=== PATIENT | female | born 1940 | race Caucasian/White ===

== ENCOUNTER → 2021-10-02 10:00 | Outpatient (BNVA) | payer MEDICARE, SELFPAY | PROVIDERS: Visit Provider Internal Medicine | DX: E11.49 Type 2 diabetes mellitus with other diabetic neurological complication (principal); R79.89 Other specified abnormal findings of blood chemistry; E78.5 Hyperlipidemia, unspecified; Z79.84 Long term (current) use of oral hypoglycemic drugs | CPT/HCPCS: 99204 ==

== ENCOUNTER 2021-11-07 19:07 | Emergency (ER) | payer MEDICARE, OTHER, SELFPAY ==
[2021-11-07 19:13] VITALS: BP 158/98; PULSE 81; RESP 18; TEMP 36.7; O2SAT 99; BMI 30.5
--- NOTE | 2021-11-07 19:13 | CTR_ITS ---
PROCEDURE INFORMATION: Exam: CT Abdomen And Pelvis With Contrast Exam date and time: 11/07/2021 7:13 PM Age: 81 years old Clinical indication: Nausea and vomiting; Abdominal pain; Flank; Right; Prior surgery; Surgery type: Hyst. Appy; Additional info: Rlq pain TECHNIQUE: Imaging protocol: Computed tomography of the abdomen and pelvis with contrast. Radiation optimization: All CT scans at this facility use at least one of these dose optimization techniques: automated exposure control; mA and/or kV adjustment per patient size (includes targeted exams where dose is matched to clinical indication); or iterative reconstruction. Contrast material: OMNI 300; Contrast volume: 95 ml; Contrast route: INTRAVENOUS (IV); COMPARISON: No relevant prior studies available. RADIATION DOSE METRICS: Total DLP (mGy-cm): 1618.78 FINDINGS: Lungs: Lung bases are clear. Diaphragm: There is a small sliding-type hiatal hernia. Liver: The liver is normal. Gallbladder and bile ducts: Cholelithiasis is present. There is no sign of cholecystitis. There is no intrahepatic or extrahepatic bile duct dilation. Pancreas: The pancreas is unremarkable. Spleen: Splenic size is normal. There are scattered calcifications consistent with healed granulomas. Adrenal glands: The adrenal glands are unremarkable. Kidneys and ureters: There is a stone at the right ureterovesical junction measuring roughly 3 mm diameter. The stone is partially obscured by motion artifact. See axial series 2, image 73 and sagittal series 601, image 46 and coronal series 602, image 35. There is mild right hydronephrosis. There is a 3 mm nonobstructive stone at the lower pole of the right kidney. Parenchymal enhancement pattern is normal. The left kidney and ureter are unremarkable. Stomach and bowel: The stomach is decompressed, preventing meaningful evaluation of wall thickness. The small bowel is nondilated. The colon is unremarkable. Appendix: The appendix is not visible. Intraperitoneal space: There is no free air or significant intraperitoneal free fluid. Vasculature: There is moderate aortic atherosclerotic disease. The portal, splenic and superior mesenteric veins are patent. Lymph nodes: There is no lymphadenopathy in the retroperitoneum, mesentery, pelvis or inguinal regions. Urinary bladder: The urinary bladder is unremarkable. Reproductive: The uterus is absent. There is no adnexal mass or large cyst. Bones/joints: The pelvis and proximal femora are intact. There is mild degenerative disease in the lumbar spine. Soft tissues: The abdominal wall is intact. CT/CT abdomen pelvis w con* [id number] IMPRESSION: 1. 3 mm stone in the distal right ureter at the ureterovesical junction producing mild hydronephrosis. 2. Nonobstructive intrarenal stone on the right. 3. Incidental findings above.
[2021-11-07] MEDS: sodium chloride 0.9% 1,000 ML 999 ML IV (19:17)
[2021-11-07 19:25] LABS: Basophils # 0.1 10^3/uL (0.0-0.1); Basophils % 0.5 %; Eosinophils # 0.2 10^3/uL (0.0-0.8); Eosinophils % 1.6 %; Hematocrit 41.9 % (37.0-47.0); Hemoglobin 13.8 g/dL (11.5-15.3); Lymphocytes # 3.2 10^3/uL (0.8-4.8); Lymphocytes % 34.1 %; Mean Corpuscular HGB Conc 32.9 g/dL (30.0-36.0); Mean Corpuscular Hemoglobin 29.5 pg (28.0-34.0); Mean Corpuscular Volume 89.5 fl (81-99); Monocytes # 0.9 10^3/uL (0.2-0.9); Monocytes % 9.4 %; Neutrophils # 5.07 10^3/uL (1.8-7.7); Neutrophils % 53.9 %; Nucleated Red Blood Cells % 0 %; Platelet Count 359 10^3/cmm (130-400); Red Blood Count 4.68 10^6/uL (4.1-5.3); Red Cell Distribution Width 13.5 % (12.1-15.1); White Blood Count 9.4 10^3/uL (4.0-10.0)
--- NOTE | 2021-11-07 19:33 | W.ED.FEMALGU ---
HPI - Female Genitourinary General: Chief complaint: Urogenital-Female Stated complaint: R LOWER QUAD PAIN, FLANK PAIN, VOMIT Time Seen by Provider: 11/07/21 19:10 History of Present Illness: HPI Narrative: 81-year-old female with sudden onset flank and right lower quadrant pain starting around 5 PM. She threw up a couple of times at home and called an ambulance. No fever. No chills. No diarrhea. She is not had a pain like this before. She was given medication in the ambulance, and her pain is now resolved. MD elicited complaint: flank pain Pertinent past history: recurrent UTIs Onset (ago): hour(s) Location of symptoms: RLQ and flank Severity: severe Female Urogenital Radiation: R Flank Quality of pain: sharp Consistency: now resolved Vaginal bleeding: none Exacerbating factors: urination and movement Relieving factors: none Associated symptoms: Reports abdominal pain and nausea; Deny short of breath or fevers/chills Review of Systems Const: Denies: fever(s) or chills Card: Denies: chest pain Resp: Denies: dyspnea GI: Reports: abdominal pain, nausea and vomiting; Denies: diarrhea PFSH ED PFSH: Medical History Aftercare following left ankle joint replacement surgery Asthma Cataract COPD (chronic obstructive pulmonary disease) Diabetes type 2, uncontrolled Insomnia Over weight Pacemaker Surgical History History of cataract surgery Hx of hysterectomy Hx of tonsillectomy Family History Father Heart attack Mother Heart attack Social History Smoking and tobacco status: former smoker Quit status (tobacco): has quit using tobacco Second hand smoke exposure: No Smoking risk assessment/counseling performed?: Yes Alcohol intake: former Desire information about alcohol rehabilitation?: No Counseling given: No Desire information about substance/drug rehabilitation?: No Counseling given: No Adopted: No Caregiver/support person: Yes Lives independently: Yes Household members: none Housing: Apartment Marital status: / Highest education level completed: GED or Equivalent service: No Current occupational status: retired Pets and animals: Yes History of recent travel: No Sexually active: No Current gender identity: Female Isabel/Sabianist: [employer] Special isabel needs: No Agree to transfusion: Yes Physical Exam Const: COMMON NORMALS: no acute distress, patient oriented x3 and alert HENMT: COMMON NORMALS: normocephalic HEAD & SCALP: normocephalic Chest: COMMONS NORMALS: normal inspection of the chest Resp: COMMON NORMALS: normal respiratory effort, No use of accessory muscles and clear to auscultation bilaterally AUSCULTATION: clear to auscultation bilaterally Cardio: COMMON NORMALS: regular rate and regular rhythm RATE: regular rate RHYTHM: regular rhythm GI: COMMON NORMALS: Normal to inspection, nondistended, normoactive bowel sounds present, Soft to palpation and non-tender PALPATION: Yes Soft to palpation Neuro: COMMON NORMALS: patient oriented x3 SENSORIUM/ORIENTATION: Yes alert Course Vital Signs: Vital signs: Vital Signs Temperature 98.1 F 11/07/21 22:27 Pulse Rate 79 11/07/21 22:27 Respiratory Rate 18 11/07/21 22:27 Blood Pressure 147/72 11/07/21 22:27 Pulse Oximetry 99 11/07/21 22:27 MDM - Female MDM Narrative: Medical decision making narrative: CBC is normal. BMP not remarkable. CT scan shows a 3 mm stone in the distal ureter on the right consistent with her symptoms. She has mild hydronephrosis. No evidence of infection on urinalysis. Her pain is gone at this point suspect she will pass without problems. We will place her on pain medication, antiemetic, and Flomax. She is DC'd with a strainer Lab Data: Labs: Lab Results 11/07/21 11/07/21 11/07/21 19:14 19:14 19:14 WBC 9.4 10^3/uL 10^3/ uL (4.0-10.0) RBC 4.68 10^6/uL 10^6 /uL (4.1-5.3) Hgb 13.8 g/dL g/dL (11.5-15.3) Hct 41.9 % % (37.0-47.0) MCV 89.5 fl fl (81-99) MCH 29.5 pg pg (28.0-34.0) MCHC 32.9 g/dL g/dL (30.0-36.0) RDW 13.5 % % (12.1-15.1) Plt Count 359 10^3/cmm 10^3 /cmm (130-400) MPV 10.0 fL fL (7.4-10.4) Neut % (Auto) 53.9 % % Lymph % (Auto) 34.1 % % [place] % (Auto) 9.4 % % Eos % (Auto) 1.6 % % Baso % (Auto) 0.5 % % Neut # (Auto) 5.07 10^3/uL 10^3 /uL (1.8-7.7) Lymph # (Auto) 3.2 10^3/uL 10^3/ uL (0.8-4.8) [place] # (Auto) 0.9 10^3/uL 10^3/ uL (0.2-0.9) Eos # (Auto) 0.2 10^3/uL 10^3/ uL (0.0-0.8) Baso # (Auto) 0.1 10^3/uL 10^3/ uL (0.0-0.1) Nucleated RBC % (a uto) 0 % % Nucleated RBCs # 0.0 /100WBC /100W BC Sodium 136 mmol/L mmol/L (136-145) Potassium 4.5 mmol/L mmol/L (3.5-5.1) Chloride 100 mmol/L mmol/L (98-107) Carbon Dioxide 20 mmol/L L mmol/ L (22-29) Anion Gap 20.5 H (5-19) BUN 10 mg/dL mg/dL (8-23) Creatinine 0.6 mg/dL mg/dL (0.5-0.9) GFR Calculation Not Reportable Glucose 180 mg/dL H mg/dL (65-115) Calculated Osmolal ity 286 mOsm/kg mOsm/ kg (285-295) Lactate 2.0 mmol/L mmol/L (0.5-2.2) Calcium 8.7 mg/dL mg/dL (8.5-10.5) Total Bilirubin 0.2 mg/dL mg/dL (0.15-1.2) AST 24 U/L U/L (0-32) ALT 24 U/L U/L (0-33) Alkaline Phosphata se 108 IU/L H IU/L (35-105) C-Reactive Protein 9.7 mg/L H mg/L (0.0-4.9) Total Protein 7.1 g/dL g/dL (6.6-8.7) Albumin 4.1 g/dL g/dL (3.5-5.2) Globulin 3.0 g/dL g/dL (1.3-4.6) Lipase 101 U/L H U/L (13-60) Urine Color Urine Appearance Urine pH Ur Specific Gravit y Urine Protein Urine Glucose (UA) Urine Ketones Urine Blood Urine Nitrate Urine Bilirubin Urine Urobilinogen Ur Leukocyte Megan ase Urine RBC Urine WBC Ur Squamous Epith Cells Amorphous Sediment Urine Bacteria 11/07/21 19:37 WBC RBC Hgb Hct MCV MCH MCHC RDW Plt Count MPV Neut % (Auto) Lymph % (Auto) [place] % (Auto) Eos % (Auto) Baso % (Auto) Neut # (Auto) Lymph # (Auto) [place] # (Auto) Eos # (Auto) Baso # (Auto) Nucleated RBC % (a uto) Nucleated RBCs # Sodium Potassium Chloride Carbon Dioxide Anion Gap BUN Creatinine GFR Calculation Glucose Calculated Osmolal ity Lactate Calcium Total Bilirubin AST ALT Alkaline Phosphata se C-Reactive Protein Total Protein Albumin Globulin Lipase Urine Color Yellow (Yellow) Urine Appearance Clear (CLEAR) Urine pH 6 (5-7) Ur Specific Gravit y 1.015 (1.005-1.030) Urine Protein Neg (Negative) Urine Glucose (UA) 1+ H (Normal) Urine Ketones Negative (Negative) Urine Blood 3+ H (Negative) Urine Nitrate Negative (Negative) Urine Bilirubin Neg (Negative) Urine Urobilinogen Norm mg/dL mg/dL (Negative) Ur Leukocyte Megan ase Negative (Negative) Urine RBC >100 /hpf H /hpf (0-2) Urine WBC 15-25 /hpf H /hpf (0-5) Ur Squamous Epith Cells 5-10 /hpf H /hpf (0-5) Amorphous Sediment Not Reportable Urine Bacteria 1+ /hpf H /hpf (NONE) Discharge Plan Discharge Patient Disposition: Home Clinical Impression: Ureterolithiasis Condition: Stable Prescriptions: New hydrocodone-acetaminophen 5-325 mg tablet 1 tab PO Q8H PRN (Reason: pain) Qty: 7 RF: 0 Zofran 4 mg tablet 4 mg PO Q6H PRN (Reason: nausea and vomiting) Qty: 10 RF: 0 Flomax 0.4 mg capsule 0.4 mg PO DAILY Qty: 7 RF: 0 No Action atorvastatin [Lipitor] 80 mg tablet 80 mg PO DAILY RF: 0 metformin 500 mg tablet 500 mg PO BID RF: 0 carvedilol [Coreg] 3.125 mg tablet 3.125 mg PO BID RF: 0 mecobalamin (vitamin B12) 1,000 mcg tablet,chewable 1,000 mcg PO DAILY RF: 0 cholecalciferol (vitamin D3) 25 mcg (1,000 unit) capsule 25 mcg PO DAILY RF: 0 loratadine [Allergy Relief (loratadine)] 10 mg tablet 10 mg PO DAILY RF: 0 exenatide microspheres 2 mg/0.65 mL pen injector 2 mg SUBCUT .WEEKLY RF: 0 spironolactone 50 mg Tablet 50 mg PO DAILY RF: 0 Discharge Orders: Discharge ED (Routine); Ordered 11/07/21 Ordered By: Deo Whaley Referrals: Johnnie Olivo MD [Physician] - 1-3 days Patient Instructions: Kidney Stones (ED) Activity Restrictions/Additional Instructions: Return to the emergency room for increasing pain despite treatment, vomiting despite treatment, fever greater than 100, mental status changes, any other concerning symptoms. Coding Level of Care Code ED Shift Superintendent for Brady Fwd Exam Detailed
[2021-11-07 19:37] VITALS: BP 158/98; PULSE 81; RESP 18; TEMP 36.7; O2SAT 99
[2021-11-07 20:02] LABS: Alanine Aminotransferase 24 U/L (0-33); Albumin Level 4.1 g/dL (3.5-5.2); Alkaline Phosphatase 108 IU/L (35-105); Anion Gap 20.5 (5-19); Aspartate Amino Transferase 24 U/L (0-32); Blood Urea Nitrogen 10 mg/dL (8-23); C Reactive Protein 9.7 mg/L (0.0-4.9); Calcium 8.7 mg/dL (8.5-10.5); Carbon Dioxide 20 mmol/L (22-29); Chloride 100 mmol/L (98-107); Glucose 180 mg/dL (65-115); Lipase 101 U/L (13-60); Osmolality Calculated 286 mOsm/kg (285-295); Potassium 4.5 mmol/L (3.5-5.1); Sodium 136 mmol/L (136-145); Total Bilirubin 0.2 mg/dL (0.15-1.2); Total Protein 7.1 g/dL (6.6-8.7)
[2021-11-07 20:04] LABS: Add Urine Microscopic? YES; Bilirubin Urine Neg (Negative); Blood Urine 3+ (Negative); Glucose Urine UA 1+ (Normal); Ketones Urine Negative (Negative); Leukocyte Esterase Urine Negative (Negative); Nitrate Urine Negative (Negative); Protein Urine Neg (Negative); Specific Gravity, Urine 1.015 (1.005-1.030); Urine Appearance Clear (CLEAR); Urine Color Yellow (Yellow); Urobilinogen Urine Norm (Negative); pH Urine 6 (5-7)
[2021-11-07 20:07] LABS: Add Urine Culture? Yes; Bacteria Urine 1+ /hpf; RBC Urine >100 /hpf (0-2); WBC Urine 15-25 /hpf (0-5)
[2021-11-07] MEDS: iohexol 300 mg/mL 100 mL Btl IV (20:27)
[2021-11-07 22:26] VITALS: BP 147/72; PULSE 79; RESP 18; TEMP 36.7; O2SAT 99
[2021-11-07] MEDS: ondansetron 4 MG Tablet 8 MG PO (22:26)
[2021-11-07] MEDS: HYDROcodone-acetaminophen 5-325 mg Tablet 2 TAB PO (22:26)
[2021-11-07 22:27] VITALS: BP 147/72; PULSE 79; RESP 18; TEMP 36.7; O2SAT 99
== END 2021-11-07 22:29 | disposition home or self-care (01) ==
PROVIDERS: Emergency Provider Emergency Medicine
DX: N13.6 Pyonephrosis (principal); E11.9 Type 2 diabetes mellitus without complications; Z87.891 Personal history of nicotine dependence; Z79.84 Long term (current) use of oral hypoglycemic drugs
CPT/HCPCS: 74177; 80053; 81001; 83605; 83690; 85025; 86140; 87086; 96360; 99284; J7030; Q0162; Q9967

== ENCOUNTER → 2022-03-24 13:04 | Outpatient (BNVA) | payer MEDICARE, OTHER, SELFPAY | PROVIDERS: Visit Provider Internal Medicine | DX: E11.49 Type 2 diabetes mellitus with other diabetic neurological complication (principal); Z79.84 Long term (current) use of oral hypoglycemic drugs; Z87.891 Personal history of nicotine dependence | CPT/HCPCS: 99214 ==

== ENCOUNTER → 2022-11-05 10:14 | Outpatient (BNVA) | payer MEDICARE, OTHER, SELFPAY | PROVIDERS: Visit Provider Internal Medicine | DX: E11.49 Type 2 diabetes mellitus with other diabetic neurological complication (principal); E66.01 Morbid (severe) obesity due to excess calories; K59.00 Constipation, unspecified; Z79.84 Long term (current) use of oral hypoglycemic drugs; Z68.31 Body mass index [BMI] 31.0-31.9, adult | CPT/HCPCS: 99214 ==

== ENCOUNTER 2023-01-15 18:10 | Emergency (ER) | payer MEDICARE, OTHER, SELFPAY ==
--- NOTE | 2023-01-15 18:12 | ED_ITS ---
HPI - Dizziness General: Chief Complaint: Dizziness Stated Complaint: dizzy Time Seen by Provider: 01/15/23 18:11 History of Present Illness: HPI Narrative: Ms. Bar is an 82-year-old lady with history of hypertension, hyperlipidemia, diabetes, heart disease presenting to the emergency department for episode of dizziness that has since resolved. She reports being at her baseline health and having sudden onset dizziness at rest which was a spinning sensation. This lasted approximately 10 seconds and has since resolved. She denies any other neurologic changes with this and denies frequent episodes of the past. Onset (ago): minute(s) Timing: sudden onset Severity: severe Description: room spinning History of similar symptoms: No Exacerbating factors: nothing Relieving factors: other Associated symptoms: Reports no associated symptoms Associated neuro symptoms: Reports no associated symptoms Review of Systems General: Reports: 10 or more systems reviewed and unremarkable except in HPI and below PFSH ED PFSH: Medical History Aftercare following left ankle joint replacement surgery Asthma Cataract COPD (chronic obstructive pulmonary disease) Diabetes type 2, uncontrolled Insomnia Over weight Pacemaker Surgical History History of cataract surgery Hx of hysterectomy Hx of tonsillectomy Family History Father Heart attack Mother Heart attack Social History Smoking and tobacco status: former smoker Quit status (tobacco): has quit using tobacco Second hand smoke exposure: No Smoking risk assessment/counseling performed?: Yes Alcohol intake: former Desire information about alcohol rehabilitation?: No Counseling given: No Desire information about substance/drug rehabilitation?: No Counseling given: No Adopted: No Caregiver/support person: Yes Lives independently: Yes Household members: none Housing: Apartment Marital status: / Highest education level completed: GED or Equivalent service: No Current occupational status: retired Pets and animals: Yes Sexually active: No Current gender identity: Female Isabel/Methodist: Denominational Special isabel needs: No Agree to transfusion: Yes Physical Exam Const: COMMON NORMALS: patient oriented x3 and alert GENERAL APPEARANCE: cooperative and well developed HENMT: COMMON NORMALS: normocephalic and atraumatic HEAD & SCALP: normocephalic and atraumatic Eye: COMMON NORMALS: conjunctivae normal CONJUNCTIVA: Yes conjunctivae normal SCLERA: sclerae normal Neck/C-Spine: COMMON NORMALS: supple GENERAL: Yes trachea midline Resp: COMMON NORMALS: clear to auscultation bilaterally EFFORT & INSPECTION: Yes able to speak in complete sentences AUSCULTATION: clear to auscultation bilaterally Cardio: COMMON NORMALS: regular rate and regular rhythm RATE: regular rate RHYTHM: regular rhythm GI: COMMON NORMALS: Soft to palpation PALPATION: Yes Soft to palpation and No Tenderness to palpation present (GI) Extremity: GENERAL: Yes normal exam except as noted and No edema Neuro: COMMON NORMALS: patient oriented x3, CN's II-XII intact bilaterally, moves all extremities, no focal motor deficits, no sensory deficits noted and gait normal SENSORIUM/ORIENTATION: Yes alert and No Orientation impaired Psych: COMMON NORMALS: mental status grossly normal and Normal thought process present THOUGHT PROCESS: Normal thought process present Course Vital Signs: Vital signs: Vital Signs Temperature 98.4 F 01/15/23 18:13 Pulse Rate 65 01/15/23 20:31 Respiratory Rate 16 01/15/23 20:31 Blood Pressure 121/86 01/15/23 20:31 Pulse Oximetry 99 01/15/23 20:31 Oxygen Delivery Me thod 01/15/23 18:13 MDM - Dizziness Medical Decision Making 82-year-old male presenting to the emergency department for dizzy episode that has since resolved. Exam as above with no focal neurologic findings. EKG notable for sinus rhythm with right bundle branch block. No STEMI. Labs similar to prior without significant abnormality, mild hypomagnesemia negative range delta troponin. Magnesium repletion ordered. CT head negative for acute pathology. Chest x-ray negative for lobar consolidation or pneumothorax. On reassessment patient has not had recurrence of symptoms. She feels well. Most likely etiology of patient's symptoms is unclear though seems peripheral in nature. The results of ED evaluation were discussed with the patient including prescriptions and/or symptomatic cares (if applicable) including appropriate and responsible use, followup plan, and return precautions. The patient verbalized understanding and felt safe for discharge. Medical Records I reviewed the patient's medical records. Lab Data I reviewed the patient's lab results. 01/15/23 18:45 01/15/23 18:[address] 01/15/23 18:36 IMPRESSION: No acute intracranial abnormality demonstrated. Chest X-Ray 01/15/23 18:45 IMPRESSION: No acute abnormality demonstrated. Laboratory Results WBC 9.6 10^3/uL (4.0-10.0) 01/15/23 18:45 RBC 4.88 10^6/uL (4.1-5.3) 01/15/23 18:45 Hgb 14.5 g/dL (11.5-15.3) 01/15/23 18:45 Hct 44.6 % (37.0-47.0) 01/15/23 18:45 MCV 91.4 fl (81-99) 01/15/23 18:45 MCH 29.7 pg (28.0-34.0) 01/15/23 18:45 MCHC 32.5 g/dL (30.0-36.0) 01/15/23 18:45 RDW 12.6 % (12.1-15.1) 01/15/23 18:45 Plt Count 308 10^3/cmm (130-400) 01/15/23 18:45 MPV 9.4 fL (7.4-10.4) 01/15/23 18:45 Neut % (Auto) 67.8 % 01/15/23 18:45 Lymph % (Auto) 22.9 % 01/15/23 18:45 [place] % (Auto) 7.2 % 01/15/23 18:45 Eos % (Auto) 1.2 % 01/15/23 18:45 Baso % (Auto) 0.4 % 01/15/23 18:45 Neut # (Auto) 6.53 10^3/uL (1.8-7.7) 01/15/23 18:45 Lymph # (Auto) 2.2 10^3/uL (0.8-4.8) 01/15/23 18:45 [place] # (Auto) 0.7 10^3/uL (0.2-0.9) 01/15/23 18:45 Eos # (Auto) 0.1 10^3/uL (0.0-0.8) 01/15/23 18:45 Baso # (Auto) 0.0 10^3/uL (0.0-0.1) 01/15/23 18:45 Nucleated RBC % (auto) 0 % 01/15/23 18:45 Nucleated RBCs # 0.0 /100WBC 01/15/23 18:45 Sodium 137 mmol/L (136-145) 01/15/23 18:45 Potassium 4.6 mmol/L (3.5-5.1) 01/15/23 18:45 Chloride 98 mmol/L (98-107) 01/15/23 18:45 Carbon Dioxide 26 mmol/L (22-29) 01/15/23 18:45 Anion Gap 17.6 (5-19) 01/15/23 18:45 BUN 15 mg/dL (8-23) 01/15/23 18:45 Creatinine 0.6 mg/dL (0.5-0.9) 01/15/23 18:45 GFR Calculation Not Reportable 01/15/23 18:45 Glucose 171 mg/dL (65-115) H 01/15/23 18:45 Calculated Osmolality 289 mOsm/kg (285-295) 01/15/23 18:45 Calcium 9.9 mg/dL (8.5-10.5) 01/15/23 18:45 Magnesium 1.5 mg/dL (1.7-2.3) L 01/15/23 18:45 Total Bilirubin 0.3 mg/dL (0.15-1.2) 01/15/23 18:45 AST 24 U/L (0-32) 01/15/23 18:45 ALT 26 U/L (0-33) 01/15/23 18:45 Alkaline Phosphatase 107 U/L (35-105) H 01/15/23 18:45 Troponin T Baseline 8 ng/L (0-10) 01/15/23 18:45 Troponin T 120 Minute 8.92 ng/L (0-10) 01/15/23 20:15 Delta Troponin T 0.92 ABS# (0-10) 01/15/23 20:15 Total Protein 7.0 g/dL (6.6-8.7) 01/15/23 18:45 Albumin 4.5 g/dL (3.5-5.2) 01/15/23 18:45 Globulin 2.5 g/dL (1.3-4.6) 01/15/23 18:45 TSH 3.74 uIU/mL (0.27-4.20) 01/15/23 18:45 Discharge Plan Discharge Patient Disposition: Home Clinical Impression: Episode of dizziness, Hypomagnesemia Condition: Stable Prescriptions: New meclizine 25 mg tablet 25 mg PO TID PRN (Reason: dizziness) Qty: 10 0RF No Action atorvastatin [Lipitor] 80 mg tablet 80 mg PO DAILY metformin 500 mg tablet 500 mg PO BID carvedilol [Coreg] 3.125 mg tablet 3.125 mg PO BID Rx Instructions: must administer with a meal/food mecobalamin (vitamin B12) 1,000 mcg tablet,chewable 1,000 mcg PO DAILY cholecalciferol (vitamin D3) 25 mcg (1,000 unit) capsule 25 mcg PO DAILY loratadine [Allergy Relief (loratadine)] 10 mg tablet 10 mg PO DAILY exenatide microspheres 2 mg/0.65 mL pen injector 2 mg SUBCUT .WEEKLY Trulicity 1.5 mg/0.5 mL pen injector SUBCUT spironolactone 50 mg Tablet 50 mg PO DAILY hydrocodone-acetaminophen 5-325 mg tablet 1 tab PO Q8H PRN (Reason: pain) Qty: 7 0RF Zofran 4 mg tablet 4 mg PO Q6H PRN (Reason: nausea and vomiting) Qty: 10 0RF Flomax 0.4 mg capsule 0.4 mg PO DAILY Qty: 7 0RF Discharge Orders: Discharge ED (Routine); Ordered 01/15/23 Ordered By: Kevin Green Discharge Diet: Usual diet Discharge Activity: Increase activity as tolerated Patient Instructions: Vertigo (ED), Dizziness (ED) Activity Restrictions/Additional Instructions: Thank you for visiting the emergency department. You were seen and evaluated for an episode of dizziness. The exact cause of the symptoms is unclear though may be related to peripheral cause and given short duration and improvement without residual neurologic symptoms I believe outpatient management is appropriate. Please ensure that you are staying hydrated. Please follow-up with your primary care provider. Return to the emergency department for recurrent symptoms, any new neurologic symptoms, or anything else that you are concerned about and feel needs emergency department evaluation. Coding Level of Care Code ED Bilingual School Psychologist for Brady Kearney
[2023-01-15 18:13] VITALS: BP 155/60; PULSE 66; RESP 16; TEMP 36.9; O2SAT 99; BMI 30.5
--- NOTE | 2023-01-15 18:36 | CTR_ITS ---
PROCEDURE INFORMATION: Exam: CT Head Without Contrast Exam date and time: 01/15/2023 7:20 PM Age: 82 years old Clinical indication: Dizziness; Additional info: Dizzy episode TECHNIQUE: Imaging protocol: Computed tomography of the head without contrast. Radiation optimization: All CT scans at this facility use at least one of these dose optimization techniques: automated exposure control; mA and/or kV adjustment per patient size (includes targeted exams where dose is matched to clinical indication); or iterative reconstruction. REPORTING DATA: Count of CT and Cardiac NM exams in prior 12 months: This patient has received 0 known CTs and 0 known cardiac nuclear medicine studies in the 12 months prior to the current study. COMPARISON: No relevant prior studies available. RADIATION DOSE METRICS: Total DLP (mGy-cm): 1112.58 FINDINGS: Brain: Mild parenchymal volume loss noted. There is decreased attenuation of the periventricular white matter, consistent with chronic microangiopathic white matter disease. 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 No parenchymal edema identified. No intracranial hemorrhage noted. Cerebral ventricles: No ventriculomegaly. Paranasal sinuses: 2 cm retention cyst right maxillary sinus. No air-fluid levels in the paranasal sinuses. Mastoid air cells: Unremarkable as visualized. No mastoid effusion. Bones/joints: Unremarkable. No acute fracture. Soft tissues: Unremarkable. CT/CT head wo con* [id number] IMPRESSION: No acute intracranial abnormality demonstrated.
--- NOTE | 2023-01-15 18:43 | ECG_ITS ---
[facility] Test Date: 2023-01-15 Pat Name: Kortney Bar Department: Room: Gender: Female Registration Rep: : 1940 Requested By: Kevin Green Order Number: [id number] Mir MD: Milo Vyas M.D. Measurements Intervals [place] Rate: 63 P: 94 OK: 191 QRS: -39 QRSD: 119 T: -15 QT: 397 QTc: 407 Interpretive Statements ELECTRONIC ATRIAL PACEMAKER LOW QRS VOLTAGE IN PRECORDIAL LEADS [QRS DEFLECTION < 1.0 mV IN CHEST LEADS] INCOMPLETE RIGHT BUNDLE BRANCH BLOCK [90+ ms QRS DURATION, TERMINAL R IN V1/V2, 40+ ms S IN I/aVL/V4/V5/V6] INFERIOR MYOCARDIAL INFARCTION , OF INDETERMINATE AGE [40+ ms Q WAVE AND/OR ST/T ABNORMALITY IN II/aVF] ANTEROLATERAL MYOCARDIAL INFARCTION , AGE INDETERMINATE No previous ECG available for comparison Electronically Signed On 01-16-2023 12:17:36 MEAT SCRUBBER by Milo Vyas M.D. [id number]
--- NOTE | 2023-01-15 18:45 | XRR_ITS ---
PROCEDURE INFORMATION: Exam: XR Chest Exam date and time: 01/15/2023 7:04 PM Age: 82 years old Clinical indication: Shortness of breath and other: Dizzy; Prior surgery; Surgery date: 6+ months; Surgery type: Pacemaker; Additional info: Dizzy episode, chest pain TECHNIQUE: Imaging protocol: Radiologic exam of the chest. Views: 1 view. COMPARISON: CT abdomen pelvis w con* [id number] 11/07/2021 8:26 PM FINDINGS: Tubes, catheters and devices: There is a permanent pacemaker present. Lungs: No consolidative pulmonary infiltrates are noted. Pleural spaces: No pleural effusion. No pneumothorax. Heart/Mediastinum: No cardiomegaly. Vasculature: The thoracic aorta is atherosclerotic. Bones/joints: Unremarkable. XR/XR chest 1V portable [id number] IMPRESSION: No acute abnormality demonstrated.
[2023-01-15 19:04] LABS: Basophils % 0.4 %; Eosinophils # 0.1 10^3/uL (0.0-0.8); Eosinophils % 1.2 %; Hematocrit 44.6 % (37.0-47.0); Hemoglobin 14.5 g/dL (11.5-15.3); Lymphocytes # 2.2 10^3/uL (0.8-4.8); Lymphocytes % 22.9 %; Mean Corpuscular HGB Conc 32.5 g/dL (30.0-36.0); Mean Corpuscular Hemoglobin 29.7 pg (28.0-34.0); Mean Corpuscular Volume 91.4 fl (81-99); Mean Platelet Volume 9.4 fL (7.4-10.4); Monocytes # 0.7 10^3/uL (0.2-0.9); Monocytes % 7.2 %; Neutrophils # 6.53 10^3/uL (1.8-7.7); Neutrophils % 67.8 %; Nucleated Red Blood Cells % 0 %; Platelet Count 308 10^3/cmm (130-400); Red Blood Count 4.88 10^6/uL (4.1-5.3); Red Cell Distribution Width 12.6 % (12.1-15.1); White Blood Count 9.6 10^3/uL (4.0-10.0)
[2023-01-15 19:09] VITALS: BP 146/64; PULSE 64; RESP 14; O2SAT 99
[2023-01-15 19:33] VITALS: BP 144/65; PULSE 63; RESP 16; O2SAT 99
[2023-01-15 19:36] LABS: Troponin(5th) Baseline 8 ng/L (0-10)
[2023-01-15 19:37] VITALS: BP 142/63; BP 144/65; BP 152/82; PULSE 62; PULSE 63
[2023-01-15 19:47] LABS: Alanine Aminotransferase 26 U/L (0-33); Albumin Level 4.5 g/dL (3.5-5.2); Alkaline Phosphatase 107 U/L (35-105); Anion Gap 17.6 (5-19); Aspartate Amino Transferase 24 U/L (0-32); Blood Urea Nitrogen 15 mg/dL (8-23); Calcium 9.9 mg/dL (8.5-10.5); Carbon Dioxide 26 mmol/L (22-29); Chloride 98 mmol/L (98-107); Creatinine Clr Calc Pharmacy 54.7717; Globulin 2.5 g/dL (1.3-4.6); Glucose 171 mg/dL (65-115); Magnesium 1.5 mg/dL (1.7-2.3); Osmolality Calculated 289 mOsm/kg (285-295); Potassium 4.6 mmol/L (3.5-5.1); Sodium 137 mmol/L (136-145); Thyroid Stimulating Hormone 3.74 uIU/mL (0.27-4.20); Total Bilirubin 0.3 mg/dL (0.15-1.2)
[2023-01-15 20:00] VITALS: BP 146/79; PULSE 61; RESP 18; O2SAT 99
[2023-01-15] MEDS: magnesium sulfate premix 2 GM/50 ML PIGGYBACK IV (20:00)
[2023-01-15 20:31] VITALS: BP 121/86; PULSE 65; RESP 16; O2SAT 99
[2023-01-15 20:51] LABS: Troponin 5 2HR 8.92 ng/L (0-10)
[2023-01-15 22:59] LABS: Troponin 5 2HR Delta 0.92 ABS# (0-10)
== END 2023-01-15 21:48 | disposition home or self-care (01) ==
PROVIDERS: Emergency Provider Emergency Medicine
DX: R42 Dizziness and giddiness (principal); E83.42 Hypomagnesemia; Z79.84 Long term (current) use of oral hypoglycemic drugs; Z79.85 Long-term (current) use of injectable non-insulin antidiabetic drugs; J44.9 Chronic obstructive pulmonary disease, unspecified; E11.9 Type 2 diabetes mellitus without complications; Z95.0 Presence of cardiac pacemaker; Z87.891 Personal history of nicotine dependence
CPT/HCPCS: 70450; 71045; 80053; 83735; 84443; 84484; 85025; 93005; 96365; 99285; J3475

== ENCOUNTER 2024-12-28 18:24 | Emergency (ER) | payer MEDICARE, OTHER, SELFPAY ==
--- NOTE | 2024-12-28 18:26 | XRR_ITS ---
PROCEDURE INFORMATION: Exam: XR Chest Exam date and time: 12/28/2024 8:16 PM Age: 84 years old Clinical indication: Other: Weakness; Prior surgery; Surgery date: 6+ months; Surgery type: Pacer TECHNIQUE: Imaging protocol: Radiologic exam of the chest. Views: 1 view. COMPARISON: CR XR chest 1V portable [id number] 01/15/2023 7:04 PM FINDINGS: Tubes, catheters and devices: Left-sided cardiac pacemaker device. Lungs: No focal consolidation. Pleural spaces: Unremarkable. No pleural effusion. No pneumothorax. Heart/Mediastinum: Unremarkable. No cardiomegaly. Bones/joints: Unremarkable. XR/XR chest 1V portable [id number] IMPRESSION: No focal consolidation.
[2024-12-28 18:35] VITALS: BP 149/78; PULSE 68; RESP 18; TEMP 36.7; O2SAT 94; BMI 29.7
--- NOTE | 2024-12-28 18:41 | ECG_ITS ---
[facility] [employer] [facility] Test Date: 2024-12-28 Pat Name: Kortney Bar Department: Room: Gender: Female Grazing Aide: : 1940 Requested By: Miriam Sykes Order Number: [id number] Mir MD: Milo Vyas M.D. Measurements Intervals [place] Rate: 63 P: 78 [place]: 180 QRS: -54 QRSD: 133 T: 13 QT: 442 QTc: 455 Interpretive Statements ELECTRONIC ATRIAL PACEMAKER RIGHT BUNDLE BRANCH BLOCK [120+ ms QRS DURATION, UPRIGHT V1, 40+ ms S IN I/aVL/V4/V5/V6] LEFT ANTERIOR FASCICULAR BLOCK [QRS AXIS <= -45, QR IN I, RS IN II] POSSIBLE ANTERIOR MYOCARDIAL INFARCTION , OF INDETERMINATE AGE [30 ms Q WAVE IN V3/V4, OR R < 0.2 mV IN V4] Compared to ECG 01/15/2023 18:43:09 Right bundle-branch block now present Left anterior fascicular block now present Incomplete right bundle-branch block no longer present Myocardial infarct finding still present Electronically Signed On 12-28-2024 21:48:05 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 [email or web address] [id number]
[2024-12-28 19:43] LABS: Bilirubin Urine Negative (Negative); Blood Urine Negative (Negative); Glucose Urine UA Negative (Normal); Ketones Urine Trace (Negative); Leukocyte Esterase Urine Negative (Negative); Nitrate Urine Negative (Negative); Protein Urine Negative (Negative); Specific Gravity, Urine 1.014 (1.005-1.030); Urine Appearance Clear (CLEAR); Urine Color Yellow (Yellow)
[2024-12-28 19:46] LABS: Add Urine Microscopic? YES; Bacteria Urine None Seen /hpf; Hyaline Casts Urine 0-4 /lpf; Squamous Epithelial Cell Urine 0-5 /hpf (0-5); WBC Urine 0-5 /hpf (0-5)
[2024-12-28 20:19] LABS: Covid PCR NEGATIVE (Negative); Influenza A NEGATIVE (Negative); Influenza B NEGATIVE (Negative); Respiratory Syncytial Virus Ce NEGATIVE (Negative)
[2024-12-28 20:22] LABS: Basophils # 0.1 10^3/uL (0.0-0.1); Basophils % 0.6 %; Eosinophils # 0.1 10^3/uL (0.0-0.8); Eosinophils % 1.2 %; Hematocrit 42.4 % (36-47); Lymphocytes # 2.8 10^3/uL (0.8-4.8); Lymphocytes % 28.2 %; Mean Corpuscular HGB Conc 32.3 g/dL (30-55); Mean Corpuscular Hemoglobin 29.6 pg (27-33); Mean Corpuscular Volume 91.6 fl (85-98); Mean Platelet Volume 9.5 fL (7.4-10.4); Monocytes # 0.6 10^3/uL (0.2-0.9); Monocytes % 5.8 %; Neutrophils # 6.38 10^3/uL (1.8-7.7); Neutrophils % 63.7 %; Nucleated Red Blood Cells % 0 %; Platelet Count 306 10^3/cmm (157-399); Red Blood Count 4.63 10^6/uL (3.85-5.65); Red Cell Distribution Width 13.6 % (12.1-15.1); White Blood Count 10.01 10^3/uL (3.29-11.43)
[2024-12-28 20:48] LABS: Alanine Aminotransferase 29 U/L (0-33); Alkaline Phosphatase 93 U/L (35-105); Blood Urea Nitrogen 17 mg/dL (8-23); Calcium 9.3 mg/dL (8.5-10.5); Carbon Dioxide 23 mmol/L (22-29); Chloride 103 mmol/L (98-107); Creatinine Clr Calc Pharmacy 52.1136; Globulin 3.1 g/dL (1.3-4.6); Glucose 129 mg/dL (65-115); Osmolality Calculated 291 mOsm/kg (285-295); Sodium 139 mmol/L (136-145); Total Bilirubin 0.3 mg/dL (0.15-1.2); Total Protein 7.1 g/dL (6.6-8.7)
[2024-12-28 20:57] LABS: Anion Gap 17.6 (5-19); Aspartate Amino Transferase 28 U/L (0-32); Potassium 4.6 mmol/L (3.5-5.1)
--- NOTE | 2024-12-28 21:33 | W.ED.SYNCOPE ---
HPI - Syncope General: Chief Complaint: Syncope Stated Complaint: near syncope, gen weakness Time Seen by Provider: 12/28/24 21:20 History of Present Illness: Patient presents to the ER having 1 presyncopal type episode today. Watson like she is got a pass out but she did not this only lasted seconds. Patient does have a pacemaker has been in for approximately 5 years. Patient had multiple episodes before the pacemaker was placed. Patient denies any chest pain. Shortness of breath nausea vomiting diaphoresis. States she feels totally perfectly normal now. Related Data Home Medications ?Medication ?Instructions ?Recorded ?Confirmed atorvastatin 80 mg tablet (Lipitor) 80 mg PO DAILY 10/02/21 11/05/22 carvedilol 3.125 mg tablet (Coreg) 3.125 mg PO BID 10/02/21 11/05/22 cholecalciferol (vitamin D3) 25 25 mcg PO DAILY 10/02/21 11/05/22 mcg (1,000 unit) capsule exenatide microspheres 2 mg/0.65 2 mg SUBCUT .WEEKLY 10/02/21 11/05/22 mL subcutaneous pen injector loratadine 10 mg tablet (Allergy 10 mg PO DAILY 10/02/21 11/05/22 Relief (loratadine)) mecobalamin (vitamin B12) 1,000 1,000 mcg PO DAILY 10/02/21 11/05/22 mcg chewable tablet metformin 500 mg tablet 500 mg PO BID 10/02/21 11/05/22 spironolactone 50 mg tablet 50 mg PO DAILY 11/07/21 11/05/22 dulaglutide 1.5 mg/0.5 mL mg SUBCUT 11/05/22 11/05/22 subcutaneous pen injector (Trulicity) Previous Rx's ?Medication ?Instructions ?Recorded hydrocodone 5 mg-acetaminophen 325 1 tab PO Q8H PRN pain #7 tabs 11/07/21 mg tablet ondansetron HCl 4 mg tablet 4 mg PO Q6H PRN nausea and 11/07/21 (Zofran) vomiting #10 tabs tamsulosin 0.4 mg capsule (Flomax) 0.4 mg PO DAILY #7 caps 11/07/21 meclizine 25 mg tablet 25 mg PO TID PRN dizziness #10 tabs 01/15/23 Allergies Allergy/AdvReac Type Severity Reaction Status Date / Time aspirin Allergy stomach Verified 12/28/24 18:46 bleed NSAIDS (Non-Steroidal Allergy stomach Verified 12/28/24 18:46 Anti-Inflamma bleed oxycodone (From Percodan) Allergy ADR-Nausea Verified 12/28/24 18:46 Penicillins Allergy hives Verified 12/28/24 18:46 Review of Systems General: Reports: 10 or more systems reviewed and unremarkable except in HPI and below PFSH ED PFSH: Medical History COPD (chronic obstructive pulmonary disease) Pacemaker Asthma Diabetes type 2, uncontrolled Over weight Cataract Insomnia Aftercare following left ankle joint replacement surgery Surgical History History of cataract surgery Hx of hysterectomy Hx of tonsillectomy Family History Father Heart attack Mother Heart attack Social History Smoking and tobacco/nicotine status: former use of tobacco/nicotine Quit status (tobacco/nicotine): has quit using Second hand smoke exposure: No Alcohol intake: former Substance/Drug Use: never Adopted: No Caregiver/support person: Yes Lives independently: Yes Household members: none Housing: Apartment Marital status: / Highest education level completed: GED or Equivalent service: No Current occupational status: retired Pets and animals: Yes Sexually active: No Do you think of yourself as: Straight/Heterosexual Current gender identity: Female Isabel/Yarsanism: Mu-Ism Special isabel needs: No Agree to transfusion: Yes Physical Exam Const: COMMON NORMALS: no acute distress, average body habitus, patient oriented x3, no limitations, healthy appearing, alert and well nourished HENMT: COMMON NORMALS: normocephalic, atraumatic, hearing grossly normal bilaterally, external ears normal and Normal external nose present HEAD & SCALP: normocephalic and atraumatic NOSE: Normal external nose present EXTERNAL EAR: Yes external ears normal Eye: COMMON NORMALS: Equal, round and reactive pupils present, EOMs intact bilaterally, conjunctivae normal and no scleral icterus CONJUNCTIVA: Yes conjunctivae normal PUPIL: Yes Equal, round and reactive pupils present Neck/C-Spine: COMMON NORMALS: full ROM, no lymphadenopathy, supple, no meningeal signs, no JVD and Thyroid normal THYROID: Thyroid normal Chest: COMMONS NORMALS: normal inspection of the chest and normal palpation of entire chest wall Resp: COMMON NORMALS: normal respiratory effort, No retractions, No use of accessory muscles and clear to auscultation bilaterally AUSCULTATION: clear to auscultation bilaterally Cardio: COMMON NORMALS: no JVD, regular rate, regular rhythm, S1 normal heart sound present, S2 normal heart sound present, No gallops present (Cardio), No clicks present (Cardio), No murmurs present (Cardio) and No rub (Cardio) RATE: regular rate RHYTHM: regular rhythm HEART SOUNDS: S1 normal heart sound present and S2 normal heart sound present GI: COMMON NORMALS: Normal to inspection, nondistended, normoactive bowel sounds present, Soft to palpation, non-tender, No hepatosplenomegaly present and no masses PALPATION: Yes Soft to palpation and Yes No hepatosplenomegaly present Neuro: COMMON NORMALS: patient oriented x3 SENSORIUM/ORIENTATION: Yes alert MENINGEAL SIGNS: Yes no meningeal signs Course Vital Signs: Vital signs: Vital Signs Temperature 98.0 F 12/28/24 18:35 Pulse Rate 63 12/28/24 22:30 Respiratory Rate 17 12/28/24 22:30 Blood Pressure 142/77 12/28/24 22:30 Pulse Oximetry 96 12/28/24 22:30 Oxygen Delivery Me thod Room Air 12/28/24 22:00 MDM - Syncope Medical Decision Making Physical exam was performed patient not any symptoms at this time, lab work was obtained as well as chest x-ray EKG and pacemaker interrogation all within normal limits. These results were discussed with the patient. Patient be discharged home. Medical Records I reviewed the patient's medical records. Lab Data I reviewed the patient's lab results. 12/28/24 20:06 12/28/24 20:06 Radiology Impressions Chest X-Ray 12/28/24 18:26 IMPRESSION: No focal consolidation. Laboratory Results WBC 10.01 10^3/uL (3.29-11.43) 12/28/24 20:06 RBC 4.63 10^6/uL (3.85-5.65) 12/28/24 20:06 Hgb 13.70 g/dL (11.27-16.99) 12/28/24 20:06 Hct 42.4 % (36-47) 12/28/24 20:06 MCV 91.6 fl (85-98) 12/28/24 20:06 MCH 29.6 pg (27-33) 12/28/24 20:06 MCHC 32.3 g/dL (30-55) 12/28/24 20:06 RDW 13.6 % (12.1-15.1) 12/28/24 20:06 Plt Count 306 10^3/cmm (157-399) 12/28/24 20:06 MPV 9.5 fL (7.4-10.4) 12/28/24 20:06 Neut % (Auto) 63.7 % 12/28/24 20:06 Lymph % (Auto) 28.2 % 12/28/24 20:06 [place] % (Auto) 5.8 % 12/28/24 20:06 Eos % (Auto) 1.2 % 12/28/24 20:06 Baso % (Auto) 0.6 % 12/28/24 20:06 Neut # (Auto) 6.38 10^3/uL (1.8-7.7) 12/28/24 20:06 Lymph # (Auto) 2.8 10^3/uL (0.8-4.8) 12/28/24 20:06 [place] # (Auto) 0.6 10^3/uL (0.2-0.9) 12/28/24 20:06 Eos # (Auto) 0.1 10^3/uL (0.0-0.8) 12/28/24 20:06 Baso # (Auto) 0.1 10^3/uL (0.0-0.1) 12/28/24 20: Nucleated RBC % (auto) 0 % 12/28/24 20: Nucleated RBCs # 0.0 /100WBC 12/28/24 20:06 Sodium 139 mmol/L (136-145) 12/28/24 20:06 Potassium 4.6 mmol/L (3.5-5.1) 12/28/24 20:06 Chloride 103 mmol/L (98-107) 12/28/24 20:06 Carbon Dioxide 23 mmol/L (22-29) 12/28/24 20:06 Anion Gap 17.6 (5-19) 12/28/24 20:06 BUN 17 mg/dL (8-23) 12/28/24 20:06 Creatinine 0.5 mg/dL (0.5-0.9) 12/28/24 20:06 GFR Calculation Not Reportable 12/28/24 20:06 Glucose 129 mg/dL (65-115) H 12/28/24 20:06 Calculated Osmolality 291 mOsm/kg (285-295) 12/28/24 20:06 Calcium 9.3 mg/dL (8.5-10.5) 12/28/24 20:06 Total Bilirubin 0.3 mg/dL (0.15-1.2) 12/28/24 20:06 AST 28 U/L (0-32) 12/28/24 20: ALT 29 U/L (0-33) 12/28/24 20:06 Alkaline Phosphatase 93 U/L (35-105) 12/28/24 20:06 Total Protein 7.1 g/dL (6.6-8.7) 12/28/24 20:06 Albumin 4.0 g/dL (3.5-5.2) 12/28/24 20:06 Globulin 3.1 g/dL (1.3-4.6) 12/28/24 20:06 Urine Color Yellow (Yellow) 12/28/24 18:59 Urine Appearance Clear (CLEAR) 12/28/24 18:59 Urine pH 6.0 (5-7) 12/28/24 18:59 Ur Specific [place] 1.014 (1.005-1.030) 12/28/24 18:59 Urine Protein Negative (Negative) 12/28/24 18:59 Urine Glucose (UA) Negative (Normal) 12/28/24 18:59 Urine Ketones Trace (Negative) 12/28/24 18:59 Urine Blood Negative (Negative) 12/28/24 18:59 Urine Nitrate Negative (Negative) 12/28/24 18:59 Urine Bilirubin Negative (Negative) 12/28/24 18:59 Urine Urobilinogen 1.0 mg/dL (Negative) 12/28/24 18:59 Ur Leukocyte Esterase Negative (Negative) 12/28/24 18:59 Urine RBC 3-5 /hpf (0-2) 12/28/24 18:59 Urine WBC 0-5 /hpf (0-5) 12/28/24 18:59 Ur Squamous Epith Cells 0-5 /hpf (0-5) 12/28/24 18:59 Amorphous Sediment Not Reportable 12/28/24 18:59 Urine Bacteria None seen /hpf (NONE) 12/28/24 18:59 Hyaline Casts 0-4 /lpf H 12/28/24 18:59 Coronavirus (PCR) Negative (Negative) 12/28/24 18:59 Influenza A (PCR) Negative (Negative) 12/28/24 18:59 Influenza Type B (PCR) Negative (Negative) 12/28/24 18:59 RSV (PCR) Negative (Negative) 12/28/24 18:59 All radiology interpretation(s) finalized by discharge Discharge Plan Discharge Patient Disposition: Home Clinical Impression: Pre-syncope Condition: Stable Prescriptions: No Action atorvastatin [Lipitor] 80 mg tablet 80 mg PO DAILY metformin 500 mg tablet 500 mg PO BID carvedilol [Coreg] 3.125 mg tablet 3.125 mg PO BID Rx Instructions: must administer with a meal/food mecobalamin (vitamin B12) 1,000 mcg tablet,chewable 1,000 mcg PO DAILY cholecalciferol (vitamin D3) 25 mcg (1,000 unit) capsule 25 mcg PO DAILY loratadine [Allergy Relief (loratadine)] 10 mg tablet 10 mg PO DAILY exenatide microspheres 2 mg/0.65 mL pen injector 2 mg SUBCUT .WEEKLY Trulicity 1.5 mg/0.5 mL pen injector SUBCUT spironolactone 50 mg Tablet 50 mg PO DAILY hydrocodone-acetaminophen 5-325 mg tablet 1 tab PO Q8H PRN (Reason: pain) Qty: 7 0RF Zofran 4 mg tablet 4 mg PO Q6H PRN (Reason: nausea and vomiting) Qty: 10 0RF Flomax 0.4 mg capsule 0.4 mg PO DAILY Qty: 7 0RF meclizine 25 mg tablet 25 mg PO TID PRN (Reason: dizziness) Qty: 10 0RF Discharge Orders: Discharge ED (Routine); Ordered 12/28/24 Ordered By: Bryn Roldan Referrals: Anoop Still MD [Primary Care Provider] - 1 week Patient Instructions: Near Syncope (ED) Activity Restrictions/Additional Instructions: Your evaluation in the ER that included lab work, chest x-ray, EKG and pacemaker interrogation did not show any acute cause of your symptomatology. Please follow-up with your family practice physician and/or ems helicopter pilot for further evaluation treatment as needed. If your symptoms worsen please feel free to return to the ER. 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
[2024-12-28 21:46] VITALS: BP 141/72; PULSE 68; RESP 17; O2SAT 95
[2024-12-28 22:00] VITALS: BP 135/79; PULSE 61; RESP 17; O2SAT 97
[2024-12-28 22:30] VITALS: BP 142/77; PULSE 63; RESP 17; O2SAT 96
[2024-12-28 23:00] VITALS: BP 155/82; PULSE 70; RESP 17; O2SAT 94
[2024-12-28 23:22] VITALS: BP 155/82; PULSE 66; O2SAT 93
== END 2024-12-28 23:24 | disposition home or self-care (01) ==
PROVIDERS: Emergency Medicine; Emergency Provider Emergency Medicine; PCP Internal Medicine Cardiovascular Disease
DX: R55 Syncope and collapse (principal); Z79.85 Long-term (current) use of injectable non-insulin antidiabetic drugs; Z79.84 Long term (current) use of oral hypoglycemic drugs; Z11.52 Encounter for screening for COVID-19; Z87.891 Personal history of nicotine dependence; J44.9 Chronic obstructive pulmonary disease, unspecified; Z95.0 Presence of cardiac pacemaker; E11.9 Type 2 diabetes mellitus without complications
CPT/HCPCS: 71045; 80053; 81001; 85025; 87637; 93005; 99285

== ENCOUNTER 2025-02-11 01:59 | Emergency (ER) | payer MEDICARE, OTHER, SELFPAY ==
[2025-02-11 02:06] VITALS: BP 152/74; PULSE 72; RESP 18; TEMP 36.7; O2SAT 95; BMI 29.8
--- NOTE | 2025-02-11 02:34 | CTR_ITS ---
PROCEDURE INFORMATION: Exam: CT Abdomen And Pelvis Without Contrast Exam date and time: 02/11/2025 2:43 AM Age: 84 years old Clinical indication: Abdominal pain; Right; Prior surgery; Surgery date: 6+ months; Surgery type: Pacer. Full hysterectomy; C/O RT flank pain with hematuria. ; Additional info: R abd pain, hematuria TECHNIQUE: Imaging protocol: Computed tomography of the abdomen and pelvis without contrast. Radiation optimization: All CT scans at this facility use at least one of these dose optimization techniques: automated exposure control; mA and/or kV adjustment per patient size (includes targeted exams where dose is matched to clinical indication); or iterative reconstruction. COMPARISON: CT abdomen pelvis w con* [id number] 11/07/2021 8:26 PM RADIATION DOSE METRICS: Total DLP (mGy-cm): 718.04 FINDINGS: Lungs: Small calcified granuloma in the left lung base. Diaphragm: Small hiatal hernia. Liver: The liver is unremarkable. Gallbladder and biliary ducts: Multiple small calcified gallstones in the dependent gallbladder. No significant gallbladder wall thickening or pericholecystic fluid. No significant biliary ductal dilation. Pancreas: The pancreas is unremarkable. Spleen: Multiple small calcified granulomas in the spleen. Adrenal glands: The adrenal glands are unremarkable. Kidneys and ureters: 0.4 cm obstructing ureterolith in the middle right ureter. Moderate right hydronephrosis. Moderate to severe stranding and edema about the right kidney, with small amounts of free fluid. No evidence of abscess formation at this time. Multiple additional nonobstructing calcifications within the right kidney, measuring up to 1.1 cm. Multiple small nonobstructing calcifications in the left kidney, measuring up to 0.6 cm. Stomach and bowel: Moderate colonic stool burden, most prominent in the cecum. Appendix: The appendix is not distinctly identified. No distinct secondary signs of acute appendicitis. Intraperitoneal space: No extraluminal free air. Vasculature: Moderate calcific atheromatous disease of the abdominal aorta and its major branches. No abdominal aortic aneurysm. Lymph nodes: No distinct pathologically enlarged lymphadenopathy. Urinary bladder: Urinary bladder is filled with mildly dense fluid, measuring roughly 13-20 Hounsfield units. Reproductive: Uterus appears absent. Bones/joints: No acute osseous findings. Soft tissues: Visualized superficial soft tissues are within normal limits. CT/CT kidney stone [id number] IMPRESSION: 1. 0.4 cm obstructing ureterolith in the middle right ureter. Moderate right hydronephrosis. Moderate to severe stranding and edema about the right kidney, with small amounts of free fluid. No evidence of abscess formation at this time. Recommend correlation for potential overlying pyelonephritis. 2. Multiple additional nonobstructing calcifications within the right kidney, measuring up to 1.1 cm. These have the appearance of potential early staghorn calculi. 3. Multiple small nonobstructing calcifications in the left kidney, measuring up to 0.6 cm. 4. Urinary bladder is filled with mildly dense fluid, measuring roughly 13-20 Hounsfield units. This may represent hematuria or pyuria. 5. Moderate colonic stool burden, most prominent in the cecum. 6. Multiple small calcified gallstones in the dependent gallbladder. No significant gallbladder wall thickening or pericholecystic fluid. No significant biliary ductal dilation.
--- NOTE | 2025-02-11 02:36 | W.ED.ABDPA2 ---
HPI - Abdominal Pain General: Chief Complaint: Abdominal Pain Stated Complaint: right side abd pain blood in urine Time Seen by Provider: 02/11/25 02:20 History of Present Illness: 84-year-old female patient presenting with right flank right abdominal pain, and hematuria. Pain was intense last afternoon, and she had a couple of episodes of emesis. That is resolved. Pain is now a 6, and is situated mainly in the right lower quadrant. She has a history of kidney stones. Related Data Home Medications ?Medication ?Instructions ?Recorded ?Confirmed atorvastatin 80 mg tablet (Lipitor) 80 mg PO DAILY 10/02/21 11/05/22 carvedilol 3.125 mg tablet (Coreg) 3.125 mg PO BID 10/02/21 11/05/22 cholecalciferol (vitamin D3) 25 25 mcg PO DAILY 10/02/21 11/05/22 mcg (1,000 unit) capsule exenatide microspheres 2 mg/0.65 2 mg SUBCUT .WEEKLY 10/02/21 11/05/22 mL subcutaneous pen injector loratadine 10 mg tablet (Allergy 10 mg PO DAILY 10/02/21 11/05/22 Relief (loratadine)) mecobalamin (vitamin B12) 1,000 1,000 mcg PO DAILY 10/02/21 11/05/22 mcg chewable tablet metformin 500 mg tablet 500 mg PO BID 10/02/21 11/05/22 spironolactone 50 mg tablet 50 mg PO DAILY 11/07/21 11/05/22 dulaglutide 1.5 mg/0.5 mL mg SUBCUT 11/05/22 11/05/22 subcutaneous pen injector (Trulicity) Previous Rx's ?Medication ?Instructions ?Recorded meclizine 25 mg tablet 25 mg PO TID PRN dizziness #10 tabs 01/15/23 hydrocodone 5 mg-acetaminophen 325 1 tab PO Q8H PRN pain #7 tabs 02/11/25 mg tablet ondansetron 4 mg disintegrating 4 mg PO Q6H PRN nausea and 02/11/25 tablet vomiting #14 tabs tamsulosin 0.4 mg capsule 0.4 mg PO DAILY #7 caps 02/11/25 Allergies Allergy/AdvReac Type Severity Reaction Status Date / Time aspirin Allergy stomach Verified 02/11/25 02:18 bleed NSAIDS (Non-Steroidal Allergy stomach Verified 02/11/25 02:18 Anti-Inflamma bleed oxycodone (From Percodan) Allergy ADR-Nausea Verified 02/11/25 02:18 Penicillins Allergy hives Verified 02/11/25 02:18 [facility] PFSH: Medical History COPD (chronic obstructive pulmonary disease) Pacemaker Asthma Diabetes type 2, uncontrolled Over weight Cataract Insomnia Aftercare following left ankle joint replacement surgery Surgical History History of cataract surgery Hx of hysterectomy Hx of tonsillectomy Family History Father Heart attack Mother Heart attack Social History Smoking and tobacco/nicotine status: former use of tobacco/nicotine Quit status (tobacco/nicotine): has quit using Second hand smoke exposure: No Alcohol intake: former Substance/Drug Use: never Adopted: No Caregiver/support person: Yes Lives independently: Yes Household members: none Housing: Apartment Marital status: / Highest education level completed: GED or Equivalent service: No Current occupational status: retired Pets and animals: Yes Sexually active: No Do you think of yourself as: Straight/Heterosexual Current gender identity: Female Isabel/Orthodoxy: Zoroastrian Special isabel needs: No Agree to transfusion: Yes Physical Exam Const: COMMON NORMALS: no acute distress GENERAL APPEARANCE: cooperative; not ill appearing and not frail appearing HENMT: COMMON NORMALS: normocephalic, atraumatic and Normal external nose present HEAD & SCALP: normocephalic and atraumatic FACE & SINUS: normal facial exam and face symmetric NOSE: Normal external nose present Eye: COMMON NORMALS: Equal, round and reactive pupils present and EOMs intact bilaterally PUPIL: Yes Equal, round and reactive pupils present Neck/C-Spine: GENERAL: Yes trachea midline Chest: CHEST: Yes Symmetrical chest wall rise Resp: COMMON NORMALS: normal respiratory effort, No retractions, No use of accessory muscles and clear to auscultation bilaterally AUSCULTATION: clear to auscultation bilaterally Cardio: COMMON NORMALS: regular rate and regular rhythm RATE: regular rate RHYTHM: regular rhythm GI: COMMON NORMALS: Normal to inspection, nondistended, normoactive bowel sounds present PALPATION: Yes Tenderness to palpation present (GI) (Minimal right lower quadrant) Extremity: COMMON NORMALS: no pedal edema Neuro: ZI COMA SCALE: document GCS findings Zi coma scale eye opening: Spontaneous Hurricane coma scale verbal response: Orientated Hurricane coma scale motor response: Obey commands Zi coma scale total score: 15 SENSORY EXAM: Yes extremities (intact) Psych: COMMON NORMALS: speech normal SPEECH: Yes normal speech Skin: COMMON NORMALS: no rashes or lesions noted GENERAL SKIN EXAM: no rashes or lesions noted Course Vital Signs: Vital signs: Vital Signs Temperature 98.0 F 02/11/25 02:06 Pulse Rate 74 02/11/25 04:59 Respiratory Rate 16 02/11/25 04:59 Blood Pressure 147/74 02/11/25 04:59 Pulse Oximetry 91 02/11/25 04:59 Oxygen Delivery Me thod Room Air 02/11/25 03:25 MDM - Abdominal Pain Medical Decision Making 84-year-old female with right-sided abdominal pain. White blood cell count is 13.2. BMP is not remarkable. Her CT scan shows a 4 mm obstructing ureteral stone in the mid right ureter. No evidence of infection on UA. She is pain-free currently. Should be allowed discharge. Lab Data 02/11/25 02:42 02/11/25 02:42 Labs/Radiology: Radiology Impressions Abdomen/Pelvis CT 02/11/25 02:34 IMPRESSION: 1. 0.4 cm obstructing ureterolith in the middle right ureter. Moderate right hydronephrosis. Moderate to severe stranding and edema about the right kidney, with small amounts of free fluid. No evidence of abscess formation at this time. Recommend correlation for potential overlying pyelonephritis. 2. Multiple additional nonobstructing calcifications within the right kidney, measuring up to 1.1 cm. These have the appearance of potential early staghorn calculi. 3. Multiple small nonobstructing calcifications in the left kidney, measuring up to 0.6 cm. 4. Urinary bladder is filled with mildly dense fluid, measuring roughly 13-20 Hounsfield units. This may represent hematuria or pyuria. 5. Moderate colonic stool burden, most prominent in the cecum. 6. Multiple small calcified gallstones in the dependent gallbladder. No significant gallbladder wall thickening or pericholecystic fluid. No significant biliary ductal dilation. Laboratory Results WBC 13.24 10^3/uL (3.29-11.43) H 02/11/25 02:42 RBC 4.92 10^6/uL (3.85-5.65) 02/11/25 02:42 Hgb 14.40 g/dL (11.27-16.99) 02/11/25 02:42 Hct 43.8 % (36-47) 02/11/25 02:42 MCV 89.0 fl (85-98) 02/11/25 02:42 MCH 29.3 pg (27-33) 02/11/25 02:42 MCHC 32.9 g/dL (30-55) 02/11/25 02:42 RDW 12.9 % (12.1-15.1) 02/11/25 02:42 Plt Count 375 10^3/cmm (157-399) 02/11/25 02:42 MPV 8.8 fL (7.4-10.4) 02/11/25 02:42 Neut % (Auto) 83.8 % 02/11/25 02:42 Lymph % (Auto) 11.4 % 02/11/25 02:42 [place] % (Auto) 4.0 % 02/11/25 02:42 Eos % (Auto) 0.1 % 02/11/25 02:42 Baso % (Auto) 0.2 % 02/11/25 02:42 Neut # (Auto) 11.09 10^3/uL (1.8-7.7) H 02/11/25 02:42 Lymph # (Auto) 1.5 10^3/uL (0.8-4.8) 02/11/25 02:42 [place] # (Auto) 0.5 10^3/uL (0.2-0.9) 02/11/25 02:42 Eos # (Auto) 0.0 10^3/uL (0.0-0.8) 02/11/25 02:42 Baso # (Auto) 0.0 10^3/uL (0.0-0.1) 02/11/25 02:42 Nucleated RBC % (auto) 0 % 02/11/25 02:42 Nucleated RBCs # 0.0 /100WBC 02/11/25 02:42 Sodium 135 mmol/L (136-145) L 02/11/25 02:42 Potassium 4.4 mmol/L (3.5-5.1) 02/11/25 02:42 Chloride 98 mmol/L (98-107) 02/11/25 02:42 Carbon Dioxide 22 mmol/L (22-29) 02/11/25 02:42 Anion Gap 19.4 (5-19) H 02/11/25 02:42 BUN 18 mg/dL (8-23) 02/11/25 02:42 Creatinine 0.8 mg/dL (0.5-0.9) 02/11/25 02:42 GFR Calculation Not Reportable 02/11/25 02:42 Glucose 220 mg/dL (65-115) H 02/11/25 02:42 Estimat Average Glucose 180 02/11/25 02:42 Hemoglobin A1c 7.9 % (4.0-6.0) H 02/11/25 02:42 Calculated Osmolality 289 mOsm/kg (285-295) 02/11/25 02:42 Calcium 9.2 mg/dL (8.5-10.5) 02/11/25 02:42 Total Bilirubin 0.3 mg/dL (0.15-1.2) 02/11/25 02:42 AST 23 U/L (0-32) 02/11/25 02:42 ALT 22 U/L (0-33) 02/11/25 02:42 Alkaline Phosphatase 108 U/L (35-105) H 02/11/25 02:42 C-Reactive Protein 8.2 mg/L (0.0-4.9) H 02/11/25 02:42 Total Protein 7.5 g/dL (6.6-8.7) 02/11/25 02:42 Albumin 4.1 g/dL (3.5-5.2) 02/11/25 02:42 Globulin 3.4 g/dL (1.3-4.6) 02/11/25 02:42 Lipase 31 U/L (13-60) 02/11/25 02:42 Urine Color Yellow (Yellow) 02/11/25 00:37 Urine Appearance Cloudy (CLEAR) A 02/11/25 00:37 Urine pH 5.5 (5-7) 02/11/25 00:37 Ur Specific [place] 1.026 (1.005-1.030) 02/11/25 00:37 Urine Protein 1+ (Negative) A 02/11/25 00:37 Urine Glucose (UA) 2+ (Normal) H 02/11/25 00:37 Urine Ketones 1+ (Negative) H 02/11/25 00:37 Urine Blood 3+ (Negative) A 02/11/25 00:37 Urine Nitrate Negative (Negative) 02/11/25 00:37 Urine Bilirubin Negative (Negative) 02/11/25 00:37 Urine Urobilinogen 1.0 mg/dL (Negative) 02/11/25 00:37 Ur Leukocyte Esterase Negative (Negative) 02/11/25 00:37 Urine RBC >100 /hpf (0-2) H 02/11/25 00:37 Urine WBC 0-5 /hpf (0-5) 02/11/25 00:37 Ur Squamous Epith Cells 0-5 /hpf (0-5) 02/11/25 00:37 Amorphous Sediment Not Reportable 02/11/25 00:37 Urine Bacteria None seen /hpf (NONE) 02/11/25 00:37 Hyaline Casts 0-4 /lpf H 02/11/25 00:37 All radiology interpretation(s) finalized by discharge Discharge Plan Discharge Patient Disposition: Home Clinical Impression: Ureterolithiasis Condition: Stable Prescriptions: New ondansetron 4 mg tablet,disintegrating 4 mg PO Q6H PRN (Reason: nausea and vomiting) Qty: 14 0RF Continued hydrocodone-acetaminophen 5-325 mg tablet 1 tab PO Q8H PRN (Reason: pain) Qty: 7 0RF tamsulosin 0.4 mg capsule 0.4 mg PO DAILY Qty: 7 0RF Discontinued ondansetron HCl [Zofran] 4 mg tablet 4 mg PO Q6H PRN (Reason: nausea and vomiting) Qty: 10 0RF No Action atorvastatin [Lipitor] 80 mg tablet 80 mg PO DAILY metformin 500 mg tablet 500 mg PO BID carvedilol [Coreg] 3.125 mg tablet 3.125 mg PO BID Rx Instructions: must administer with a meal/food mecobalamin (vitamin B12) 1,000 mcg tablet,chewable 1,000 mcg PO DAILY cholecalciferol (vitamin D3) 25 mcg (1,000 unit) capsule 25 mcg PO DAILY loratadine [Allergy Relief (loratadine)] 10 mg tablet 10 mg PO DAILY exenatide microspheres 2 mg/0.65 mL pen injector 2 mg SUBCUT .WEEKLY Trulicity 1.5 mg/0.5 mL pen injector SUBCUT spironolactone 50 mg Tablet 50 mg PO DAILY meclizine 25 mg tablet 25 mg PO TID PRN (Reason: dizziness) Qty: 10 0RF Discharge Orders: Discharge ED (Routine); Ordered 02/11/25 Ordered By: Deo Whaley Patient Instructions: Kidney Stones (ED), Opioid Safety, Pain Management Activity Restrictions/Additional Instructions: Medication as needed for pain and nausea. Take the Flomax to help relieve symptoms of urinary obstruction and potentially pass your stone sooner. Strain your urine to watch for the stone. Return for fever, vomiting liquids, worsening pain despite treatment, other concerning symptoms. Print Language: Cameroonian Coding Level of Care Code ED [place] Floor Person for Brady Kearney
[2025-02-11 02:47] LABS: Bilirubin Urine Negative (Negative); Blood Urine 3+ (Negative); Glucose Urine UA 2+ (Normal); Ketones Urine 1+ (Negative); Leukocyte Esterase Urine Negative (Negative); Nitrate Urine Negative (Negative); Protein Urine 1+ (Negative); Specific Gravity, Urine 1.026 (1.005-1.030); Urine Appearance Cloudy (CLEAR); Urine Color Yellow (Yellow); pH Urine 5.5 (5-7)
[2025-02-11 02:52] LABS: Bacteria Urine None Seen /hpf; Hyaline Casts Urine 0-4 /lpf; RBC Urine >100 /hpf (0-2); Squamous Epithelial Cell Urine 0-5 /hpf (0-5); WBC Urine 0-5 /hpf (0-5)
[2025-02-11 02:53] LABS: Add Urine Culture? Yes
[2025-02-11 02:54] LABS: Basophils % 0.2 %; Eosinophils % 0.1 %; Hematocrit 43.8 % (36-47); Lymphocytes # 1.5 10^3/uL (0.8-4.8); Lymphocytes % 11.4 %; Mean Corpuscular HGB Conc 32.9 g/dL (30-55); Mean Corpuscular Hemoglobin 29.3 pg (27-33); Mean Platelet Volume 8.8 fL (7.4-10.4); Monocytes # 0.5 10^3/uL (0.2-0.9); Neutrophils # 11.09 10^3/uL (1.8-7.7); Neutrophils % 83.8 %; Nucleated Red Blood Cells % 0 %; Platelet Count 375 10^3/cmm (157-399); Red Blood Count 4.92 10^6/uL (3.85-5.65); Red Cell Distribution Width 12.9 % (12.1-15.1); White Blood Count 13.24 10^3/uL (3.29-11.43)
[2025-02-11 03:10] LABS: Alanine Aminotransferase 22 U/L (0-33); Albumin Level 4.1 g/dL (3.5-5.2); Alkaline Phosphatase 108 U/L (35-105); Anion Gap 19.4 (5-19); Aspartate Amino Transferase 23 U/L (0-32); Blood Urea Nitrogen 18 mg/dL (8-23); C Reactive Protein 8.2 mg/L (0.0-4.9); Calcium 9.2 mg/dL (8.5-10.5); Carbon Dioxide 22 mmol/L (22-29); Chloride 98 mmol/L (98-107); Globulin 3.4 g/dL (1.3-4.6); Glucose 220 mg/dL (65-115); Lipase 31 U/L (13-60); Osmolality Calculated 289 mOsm/kg (285-295); Potassium 4.4 mmol/L (3.5-5.1); Sodium 135 mmol/L (136-145); Total Bilirubin 0.3 mg/dL (0.15-1.2); Total Protein 7.5 g/dL (6.6-8.7)
[2025-02-11 03:25] VITALS: BP 132/68; PULSE 70; RESP 16; O2SAT 91
[2025-02-11 03:42] LABS: Estmated Average Glucose 180; Hemoglobin A1C 7.9 % (4.0-6.0)
[2025-02-11 04:59] VITALS: BP 147/74; PULSE 74; RESP 16; O2SAT 91
== END 2025-02-11 05:00 | disposition home or self-care (01) ==
PROVIDERS: Emergency Provider Emergency Medicine
DX: N20.1 Calculus of ureter (principal); E11.9 Type 2 diabetes mellitus without complications; J44.9 Chronic obstructive pulmonary disease, unspecified; Z95.0 Presence of cardiac pacemaker; Z87.891 Personal history of nicotine dependence; Z79.84 Long term (current) use of oral hypoglycemic drugs
CPT/HCPCS: 36415; 74176; 80053; 81001; 83036; 83690; 85025; 86140; 87086; 99284

== ENCOUNTER 2025-03-14 17:34 | Emergency (ER) | payer MEDICARE, OTHER, SELFPAY ==
[2025-03-14 17:44] VITALS: BP 144/81; PULSE 79; RESP 18; TEMP 36.7; O2SAT 95; BMI 28.6
--- NOTE | 2025-03-14 18:13 | CTR_ITS ---
PROCEDURE INFORMATION: Exam: CT Abdomen And Pelvis Without Contrast Exam date and time: 03/14/2025 6:50 PM Age: 84 years old Clinical indication: Other: Flank pain; Prior surgery; Surgery date: 6+ months; Surgery type: Tubal, hysterectomy, appy; Additional info: Flank pain, recent stone TECHNIQUE: Imaging protocol: Computed tomography of the abdomen and pelvis without contrast. Radiation optimization: All CT scans at this facility use at least one of these dose optimization techniques: automated exposure control; mA and/or kV adjustment per patient size (includes targeted exams where dose is matched to clinical indication); or iterative reconstruction. COMPARISON: CT kidney stone [id number] 02/11/2025 2:43 AM RADIATION DOSE METRICS: Total DLP (mGy-cm): 718.83 FINDINGS: Tubes, catheters and devices: Partially imaged mitral prosthesis and cardiac pacer leads. Lungs: Mild strand-like atelectasis lung bases. Liver: Normal. No mass. Gallbladder and biliary ducts: A few calcified gallstones noted. Contracted gallbladder. No biliary dilation. Pancreas: Normal. No ductal dilation. Spleen: Multiple subcentimeter splenic granulomas again demonstrated. Adrenal glands: Normal. No mass. Kidneys and ureters: Several bilateral renal stones the largest in the right kidney up to 10 mm. Mild to moderate right hydroureteronephrosis and perinephric edema (decreased perinephric edema compared to 02/11/2025), to mm stone in the right UV junction, new from prior study (series 4, image 176). A few vascular phleboliths (including series 4, image 174) are unchanged. Stomach and bowel: [id number] amount retained stool in the rectum , sigmoid and remainder of the colon. Moderate gas distension of the redundant sigmoid colon. Mild colonic wall thickening suggestive of stercoral colitis. Moderate fluid-filled small bowel throughout the abdomen. Appendix: Reported appendectomy Intraperitoneal space: Unremarkable. No free air. No significant fluid collection. Vasculature: Moderate atherosclerotic aortic calcification. Lymph nodes: Unremarkable. No enlarged lymph nodes. Urinary bladder: Nearly empty. Moderate diffuse wall thickening. Reproductive: Absent uterus. Bones/joints: Moderate multilevel degenerative thoracolumbar spondylosis . Soft tissues: Unremarkable. CT/CT kidney stone [id number] IMPRESSION: 1. Mild right hydroureteronephrosis due to 4 mm right UV junction stone, descended from the mid ureter since 02/11/2025. Decreased perinephric edema from prior study. 2. Unchanged additional bilateral nonobstructive renal stones up to 10 mm . 3. Large volume retained colonic stool with suggestive of superimposed stercoral proctocolitis, similar to the prior study. 4. [id number] urinary bladder wall thickening , correlation for cystitis recommended.
[2025-03-14 18:46] LABS: Basophils # 0.1 10^3/uL (0.0-0.1); Basophils % 0.4 %; Eosinophils # 0.1 10^3/uL (0.0-0.8); Eosinophils % 0.7 %; Hematocrit 39.7 % (36-47); Lymphocytes % 17.1 %; Mean Corpuscular HGB Conc 32.2 g/dL (30-55); Mean Corpuscular Hemoglobin 29.2 pg (27-33); Mean Corpuscular Volume 90.6 fl (85-98); Mean Platelet Volume 9.4 fL (7.4-10.4); Monocytes % 8.7 %; Neutrophils # 8.55 10^3/uL (1.8-7.7); Neutrophils % 72.5 %; Nucleated Red Blood Cells % 0 %; Platelet Count 245 10^3/cmm (157-399); Red Blood Count 4.38 10^6/uL (3.85-5.65); Red Cell Distribution Width 13.6 % (12.1-15.1); White Blood Count 11.79 10^3/uL (3.29-11.43)
[2025-03-14 19:08] LABS: Alanine Aminotransferase 23 U/L (0-33); Albumin Level 3.8 g/dL (3.5-5.2); Alkaline Phosphatase 95 U/L (35-105); Anion Gap 18.5 (5-19); Aspartate Amino Transferase 19 U/L (0-32); Blood Urea Nitrogen 19 mg/dL (8-23); Calcium 9.2 mg/dL (8.5-10.5); Carbon Dioxide 22 mmol/L (22-29); Chloride 99 mmol/L (98-107); Creatinine Clr Calc Pharmacy 42.4693; Glucose 200 mg/dL (65-115); Osmolality Calculated 288 mOsm/kg (285-295); Potassium 4.5 mmol/L (3.5-5.1); Sodium 135 mmol/L (136-145); Total Bilirubin 0.3 mg/dL (0.15-1.2); Total Protein 6.8 g/dL (6.6-8.7)
[2025-03-14 19:26] VITALS: BP 142/64; PULSE 70; O2SAT 95
[2025-03-14 19:34] LABS: Bacteria Urine None Seen /hpf; Hyaline Casts Urine 2.46 /lpf; RBC Urine 0-2 /hpf (0-2); Squamous Epithelial Cell Urine 0-5 /hpf (0-5); WBC Urine 0-5 /hpf (0-5)
[2025-03-14 19:40] VITALS: BP 145/65; PULSE 77; O2SAT 97
[2025-03-14 19:47] LABS: Add Urine Microscopic? YES; Bilirubin Urine Negative (Negative); Blood Urine Negative (Negative); Glucose Urine UA Trace (Normal); Ketones Urine Trace (Negative); Leukocyte Esterase Urine Negative (Negative); Nitrate Urine Negative (Negative); Protein Urine Trace (Negative); Specific Gravity, Urine 1.011 (1.005-1.030); Urine Appearance Clear (CLEAR); Urine Color Yellow (Yellow); pH Urine 7.5 (5-7)
--- NOTE | 2025-03-14 19:55 | W.ED.ABDPA2 ---
HPI - Abdominal Pain General: Chief Complaint: Nausea/Vomiting/Diarrhea Stated Complaint: pt stated poss kidney stone Time Seen by Provider: 03/14/25 19:17 Source: patient Mode of arrival: ambulatory Limitations: no limitations History of Present Illness: 84yo female presents with family for evaluation of nausea/vomiting with flank pain. Patient states she was seen in this ER approximately 1 month ago where she was diagnosed with a kidney stone. Patient states this feels similar to when she was diagnosed with a kidney stone last month. States her pain was significant when she arrived, but she did not need to take her pain pill. Patient is not certain if this is the same stone or if this is a new stone. She reports she does have a history of kidney stones. Patient denies fever, difficulty voiding, cough, congestion, any other concerns at this time. Associated Symptoms: Reports nausea and vomiting; Denies chills, diarrhea and fever(s) Related Data Home Medications ?Medication ?Instructions ?Recorded ?Confirmed atorvastatin 80 mg tablet (Lipitor) 80 mg PO DAILY 10/02/21 11/05/22 carvedilol 3.125 mg tablet (Coreg) 3.125 mg PO BID 10/02/21 11/05/22 cholecalciferol (vitamin D3) 25 25 mcg PO DAILY 10/02/21 11/05/22 mcg (1,000 unit) capsule exenatide microspheres 2 mg/0.65 2 mg SUBCUT .WEEKLY 10/02/21 11/05/22 mL subcutaneous pen injector loratadine 10 mg tablet (Allergy 10 mg PO DAILY 10/02/21 11/05/22 Relief (loratadine)) mecobalamin (vitamin B12) 1,000 1,000 mcg PO DAILY 10/02/21 11/05/22 mcg chewable tablet metformin 500 mg tablet 500 mg PO BID 10/02/21 11/05/22 spironolactone 50 mg tablet 50 mg PO DAILY 11/07/21 11/05/22 dulaglutide 1.5 mg/0.5 mL mg SUBCUT 11/05/22 11/05/22 subcutaneous pen injector (Trulicity) Previous Rx's ?Medication ?Instructions ?Recorded meclizine 25 mg tablet 25 mg PO TID PRN dizziness #10 tabs 01/15/23 hydrocodone 5 mg-acetaminophen 325 1 tab PO Q8H PRN pain #7 tabs 02/11/25 mg tablet ondansetron 4 mg disintegrating 4 mg PO Q6H PRN nausea and 02/11/25 tablet vomiting #14 tabs tamsulosin 0.4 mg capsule (Flomax) 0.4 mg PO DAILY 20 days #20 caps 03/14/25 Allergies Allergy/AdvReac Type Severity Reaction Status Date / Time aspirin Allergy stomach Verified 02/11/25 02:18 bleed NSAIDS (Non-Steroidal Allergy stomach Verified 02/11/25 02:18 Anti-Inflamma bleed oxycodone (From Percodan) Allergy ADR-Nausea Verified 02/11/25 02:18 Penicillins Allergy hives Verified 02/11/25 02:18 Review of Systems Const: Denies: fever(s), chills or body aches Card: Denies: chest pain Resp: Denies: dyspnea GI: Reports: nausea and vomiting; Denies: diarrhea : Reports: flank pain Neuro: Denies: headache(s) PFS ED PFSH: Medical History COPD (chronic obstructive pulmonary disease) Pacemaker Asthma Diabetes type 2, uncontrolled Over weight Cataract Insomnia Aftercare following left ankle joint replacement surgery Surgical History History of cataract surgery Hx of hysterectomy Hx of tonsillectomy Family History Father Heart attack Mother Heart attack Social History Smoking and tobacco/nicotine status: former use of tobacco/nicotine Quit status (tobacco/nicotine): has quit using Second hand smoke exposure: No Alcohol intake: former Substance/Drug Use: never Adopted: No Caregiver/support person: Yes Lives independently: Yes Household members: none Housing: Apartment Marital status: / Highest education level completed: GED or Equivalent service: No Current occupational status: retired Pets and animals: Yes Sexually active: No Do you think of yourself as: Straight/Heterosexual Current gender identity: Female Isabel/Episcopal: Latter Day Special isabel needs: No Agree to transfusion: Yes Physical Exam Const: COMMON NORMALS: no acute distress, patient oriented x3, healthy appearing and alert GENERAL APPEARANCE: cooperative ORIENTATION/CONSCIOUSNESS: Yes awake OTHER: Patient is sitting upright on the stretcher no acute distress. She is able to give history with no difficulty. She is interactive with exam appropriately. She reports she is in no pain at this time. Family is at bedside HENMT: COMMON NORMALS: normocephalic HEAD & SCALP: normocephalic Chest: CHEST: Yes Symmetrical chest wall rise Resp: COMMON NORMALS: normal respiratory effort and clear to auscultation bilaterally EFFORT & INSPECTION: Yes able to speak in complete sentences AUSCULTATION: clear to auscultation bilaterally Cardio: COMMON NORMALS: regular rate RATE: regular rate Extremity: COMMON NORMALS: full ROM Neuro: COMMON NORMALS: patient oriented x3 SENSORIUM/ORIENTATION: Yes alert Course Vital Signs: Vital signs: Vital Signs Temperature 98.0 F 03/14/25 17:44 Pulse Rate 67 03/14/25 21:11 Respiratory Rate 18 03/14/25 17:44 Blood Pressure 147/68 03/14/25 21:11 Pulse Oximetry 96 03/14/25 21:11 Oxygen Delivery Me thod Room Air 03/14/25 17:44 MDM - Abdominal Pain Medical Decision Making 84yo female presents with family for evaluation of nausea/vomiting with flank pain. Patient states she was seen in this ER approximately 1 month ago where she was diagnosed with a kidney stone. Patient states this feels similar to when she was diagnosed with a kidney stone last month. States her pain was significant when she arrived, but she did not need to take her pain pill. Patient is not certain if this is the same stone or if this is a new stone. She reports she does have a history of kidney stones. Patient denies fever, difficulty voiding, cough, congestion, any other concerns at this time. Mild leukocytosis with a white blood cell count of 11.79. No indication of anemia with hemoglobin of 12.8. No significant electrolyte abnormalities. Creatinine is noted to be 1.0, increased from 0.8 on 02/11/2025. No hepatic abnormalities noted. UA with trace protein, trace glucose, otherwise unremarkable. CT scan reveals mild right hydroureteronephrosis due to 4 mm right UVJ stone that has descended from the mid ureter from last scan on 02/11/2025. Decreased perinephric edema from prior study. Also noted were bilateral nonobstructive renal stones up to 10 mm. Large volume retained colonic stool with suggestive of superimposed stercoral proctocolitis, similar to prior study. Mild to moderate urinary bladder wall thickening, concerning for cystitis. Discussed findings of UVJ stone, bilateral kidney stones, and large volume retained colonic stool with patient and family. Discussed with patient that the stone is almost to the bladder and will likely be expelled in the next several days. Discussed the importance of evacuating the stool from the colon. Patient does state understanding. She was provided with lactulose and fleets enema and also has MiraLAX at home. Patient was prescribed tamsulosin. Educational handouts provided about kidney stone prevention, kidney stones, and constipation. Recommend patient follow-up with primary care, call in a few days with an update of symptoms and to discuss recheck. Return precautions provided. Patient and family state understanding and have no further questions or concerns at this time. Differential Diagnosis Likely abdominal pain, calculus of kidney and constipation Medical Records I reviewed the patient's medical records. Lab Data I reviewed the patient's lab results. 03/14/25 18:31 03/14/25 18:31 Labs/Radiology: Radiology Impressions Abdomen/Pelvis CT 03/14/25 18:13 IMPRESSION: 1. Mild right hydroureteronephrosis due to 4 mm right UV junction stone, descended from the mid ureter since 02/11/2025. Decreased perinephric edema from prior study. 2. Unchanged additional bilateral nonobstructive renal stones up to 10 mm . 3. Large volume retained colonic stool with suggestive of superimposed stercoral proctocolitis, similar to the prior study. 4. Uvor-uw-ijmooiex urinary bladder wall thickening , correlation for cystitis recommended. Laboratory Results WBC 11.79 10^3/uL (3.29-11.43) H 03/14/25 18: RBC 4.38 10^6/uL (3.85-5.65) 03/14/25 18: Hgb 12.80 g/dL (11.27-16.99) 03/14/25 18: Hct 39.7 % (36-47) 03/14/25 18: MCV 90.6 fl (85-98) 03/14/25 18: MCH 29.2 pg (27-33) 03/14/25 18: MCHC 32.2 g/dL (30-55) 03/14/25 18: RDW 13.6 % (12.1-15.1) 03/14/25 18: Plt Count 245 10^3/cmm (157-399) 03/14/25 18: MPV 9.4 fL (7.4-10.4) 03/14/25 18: Neut % (Auto) 72.5 % 03/14/25 18: Lymph % (Auto) 17.1 % 03/14/25 18: [place] % (Auto) 8.7 % 03/14/25 18: Eos % (Auto) 0.7 % 03/14/25 18: Baso % (Auto) 0.4 % 03/14/25 18: Neut # (Auto) 8.55 10^3/uL (1.8-7.7) H 03/14/25 18: Lymph # (Auto) 2.0 10^3/uL (0.8-4.8) 03/14/25 18: [place] # (Auto) 1.0 10^3/uL (0.2-0.9) H 03/14/25 18: Eos # (Auto) 0.1 10^3/uL (0.0-0.8) 03/14/25 18: Baso # (Auto) 0.1 10^3/uL (0.0-0.1) 03/14/25 18: Nucleated RBC % (auto) 0 % 03/14/25 18: Nucleated RBCs # 0.0 /100WBC 03/14/25 18: Sodium 135 mmol/L (136-145) L 03/14/25 18: Potassium 4.5 mmol/L (3.5-5.1) 03/14/25 18: Chloride 99 mmol/L (98-107) 03/14/25 18: Carbon Dioxide 22 mmol/L (22-29) 03/14/25 18: Anion Gap 18.5 (5-19) 03/14/25 18: BUN 19 mg/dL (8-23) 03/14/25 18: Creatinine 1.0 mg/dL (0.5-0.9) H 03/14/25 18:31 GFR Calculation Not Reportable 03/14/25 18:31 Glucose 200 mg/dL (65-115) H 03/14/25 18:31 Calculated Osmolality 288 mOsm/kg (285-295) 03/14/25 18:31 Calcium 9.2 mg/dL (8.5-10.5) 03/14/25 18:31 Total Bilirubin 0.3 mg/dL (0.15-1.2) 03/14/25 18: AST 19 U/L (0-32) 03/14/25 18:31 ALT 23 U/L (0-33) 03/14/25 18:31 Alkaline Phosphatase 95 U/L (35-105) 03/14/25 18:31 Total Protein 6.8 g/dL (6.6-8.7) 03/14/25 18: Albumin 3.8 g/dL (3.5-5.2) 03/14/25 18: Globulin 3.0 g/dL (1.3-4.6) 03/14/25 18:31 Urine Color Yellow (Yellow) 03/14/25 17:57 Urine Appearance Clear (CLEAR) 03/14/25 17:57 Urine pH 7.5 (5-7) 03/14/25 17:57 Ur Specific [place] 1.011 (1.005-1.030) 03/14/25 17:57 Urine Protein Trace (Negative) A 03/14/25 17:57 Urine Glucose (UA) Trace (Normal) H 03/14/25 17:57 Urine Ketones Trace (Negative) 03/14/25 17:57 Urine Blood Negative (Negative) 03/14/25 17:57 Urine Nitrate Negative (Negative) 03/14/25 17:57 Urine Bilirubin Negative (Negative) 03/14/25 17:57 Urine Urobilinogen 1.0 mg/dL (Negative) 03/14/25 17:57 Ur Leukocyte Esterase Negative (Negative) 03/14/25 17:57 Urine RBC 0-2 /hpf (0-2) 03/14/25 17:57 Urine WBC 0-5 /hpf (0-5) 03/14/25 17:57 Ur Squamous Epith Cells 0-5 /hpf (0-5) 03/14/25 17:57 Amorphous Sediment Not Reportable 03/14/25 17:57 Urine Bacteria None seen /hpf (NONE) 03/14/25 17:57 Hyaline Casts 2.46 /lpf 03/14/25 17:57 All radiology interpretation(s) finalized by discharge Discharge Plan Discharge Patient Disposition: Home Clinical Impression: Calculus of ureterovesical junction (UVJ), Bilateral kidney stones, Stercoral colitis Condition: Stable Prescriptions: New tamsulosin [Flomax] 0.4 mg capsule 0.4 mg PO DAILY 20 Days Qty: 20 0RF Discontinued tamsulosin 0.4 mg capsule 0.4 mg PO DAILY Qty: 7 0RF No Action atorvastatin [Lipitor] 80 mg tablet 80 mg PO DAILY metformin 500 mg tablet 500 mg PO BID carvedilol [Coreg] 3.125 mg tablet 3.125 mg PO BID Rx Instructions: must administer with a meal/food mecobalamin (vitamin B12) 1,000 mcg tablet,chewable 1,000 mcg PO DAILY cholecalciferol (vitamin D3) 25 mcg (1,000 unit) capsule 25 mcg PO DAILY loratadine [Allergy Relief (loratadine)] 10 mg tablet 10 mg PO DAILY exenatide microspheres 2 mg/0.65 mL pen injector 2 mg SUBCUT .WEEKLY Trulicity 1.5 mg/0.5 mL pen injector SUBCUT spironolactone 50 mg Tablet 50 mg PO DAILY meclizine 25 mg tablet 25 mg PO TID PRN (Reason: dizziness) Qty: 10 0RF ondansetron 4 mg tablet,disintegrating 4 mg PO Q6H PRN (Reason: nausea and vomiting) Qty: 14 0RF hydrocodone-acetaminophen 5-325 mg tablet 1 tab PO Q8H PRN (Reason: pain) Qty: 7 0RF Discharge Orders: Discharge ED (Routine); Ordered 03/14/25 Ordered By: Yvan Connor Discharge Diet: Usual diet Discharge Activity: Increase activity as tolerated Patient Instructions: Constipation (ED), Kidney Stones (ED), Opioid Safety Activity Restrictions/Additional Instructions: The CT scan did show that the kidney stone had moved down the ureter and is almost to the bladder at the time of the scan You do have stones in bilateral kidneys that have not yet begun to move More importantly, you do have significant constipation so much so that it is causing inflammation of your colon. The best treatment for this is to evacuate the colon of the stool. Please use the provided lactulose and enema to help begin the process of a bowel cleanse A refill of tamsulosin has been sent to your pharmacy to help with the passage of the stone Please see provided handouts with information about kidney stones and kidney stone prevention Follow-up with your doctor, call in 1 to 2 days with an update of symptoms and to discuss a recheck Return to the emergency department if any rapid worsening symptoms, onset of fever associated with worsening, difficulty passing stool, and as needed Print Language: French Coding Level of Care Code ED Call Center Representative for Brady Kearney
[2025-03-14 20:10] VITALS: BP 138/79; PULSE 71; O2SAT 97
[2025-03-14] MEDS: lactulose oral liq 20 gm/30 mL UDC 30 GM PO (21:03)
[2025-03-14] MEDS: Fleet Enema 133 mL Enema PR (21:03)
[2025-03-14 21:11] VITALS: BP 147/68; PULSE 67; O2SAT 96
== END 2025-03-14 21:14 | disposition home or self-care (01) ==
PROVIDERS: Student in an Organized Health Care Education/Training Program; Emergency Provider Nurse Practitioner
DX: N20.2 Calculus of kidney with calculus of ureter (principal); K52.9 Noninfective gastroenteritis and colitis, unspecified; Z79.84 Long term (current) use of oral hypoglycemic drugs; Z87.891 Personal history of nicotine dependence; J44.9 Chronic obstructive pulmonary disease, unspecified; E11.9 Type 2 diabetes mellitus without complications; Z95.0 Presence of cardiac pacemaker
CPT/HCPCS: 36415; 74176; 80053; 81001; 85025; 99284; J9999

== ENCOUNTER 2025-06-16 08:54 | Emergency (ER) | payer MEDICARE, OTHER, SELFPAY ==
[2025-06-16 08:56] VITALS: BP 165/79; PULSE 78; RESP 16; TEMP 36.6; O2SAT 94; BMI 29.1
--- OUTSIDE RECORDS SUMMARY | 2025-06-16 09:04 | XMS_ITS | Encounter Summary ---
Author Organization [facility] Address [address] [place] [address] Care Team Providers Care Formula Technician Name Role Phone Nani Alejandro MD Primary Care Provider +1- [phone] Encounter Details Date Type Department Care Team (Latest Contact Info) Description 12/25/[address] [address] Gómez Gloria MD [address] [address] NAUSEA ALONE (Primary Dx); ESOPHAGEAL REFLUX; OTHER MALAISE AND FATIGUE Social History Tobacco Use Types Packs/Day Years Used Date Smoking Tobacco: Never Assessed Comments Unknown Sex and Gender Information Value Date Recorded Sex Assigned at Not on file 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
--- OUTSIDE RECORDS SUMMARY | 2025-06-16 09:04 | XMS_ITS | Encounter Summary ---
Author Organization [facility] Address [address] [place] [address] Care Team Providers Care Electrical And Instrumentation Manager Name Role Phone Nani Alejandro MD Primary Care Provider +1- [phone] Encounter Details Date Type Department Care Team (Latest Contact Info) Description 01/02/[address] [address] Gómez Gloria MD [address] [phone] ROSACEA (Primary Dx); CHEST PAIN NOS; Gynecologic examination; ENDOCRINE DISORDER NOS Social History Tobacco Use Types Packs/Day Years Used Date Smoking Tobacco: Never Assessed Comments Unknown Sex and Gender Information Value Date Recorded Sex Assigned at Not on file 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
--- OUTSIDE RECORDS SUMMARY | 2025-06-16 09:04 | XMS_ITS | Encounter Summary ---
Author Organization [facility] Address [address] [place] [address] Care Team Providers Care Brim Setter Name Role Phone Nani Alejandro MD Primary Care Provider +1- [phone] Encounter Details Date Type Department Care Team (Late st Contact Info) Description 08/15/[address] [address] [facility] 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
--- OUTSIDE RECORDS SUMMARY | 2025-06-16 09:04 | XMS_ITS | Encounter Summary ---
Author Organization [facility] Address [address] [place] [address] Care Team Providers Care Corporate Recruiter Name Role Phone Nani Alejandro MD Primary Care Provider +1- [phone] Encounter Details Date Type Department Care Team (Late st Contact Info) Description 02/08/2003 Outpatient Historical [facility] [address] [facility] [address] [place] [address] Social History Tobacco Use Types Packs/Day Years Used Date Smoking Tobacco: Never Assessed Comments Unknown Sex and Gender Information Value Date Recorded Sex Assigned at Not on file 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
--- OUTSIDE RECORDS SUMMARY | 2025-06-16 09:04 | XMS_ITS | Encounter Summary ---
Author Organization [facility] Address [address] [place] [address] Care Team Providers Care Environmental Engineering Aide Name Role Phone Nani Alejandro MD Primary Care Provider +1- [phone] Encounter Details Date Type Department Care Team (Latest Contact Info) Description 10/26/2002 Outpatient Historical [facility] Medicine- [address] [address] Gómez Gloria MD [address] [address] DIABETES UNCOMPL ADULT-TYPE II (CMS/HCC) (Primary Dx); Pure hypercholesterolem Social History Tobacco Use Types Packs/Day Years Used Date Smoking Tobacco: Never Assessed Comments Unknown Sex and Gender Information Value Date Recorded Sex Assigned at Not on file Legal Sex Female 4:35 AM CASE ADVOCATE Gender Identity Not on file Sexual Orientation Not on file documented as of this encounter Plan of Treatment Not on file documented as of this encounter Visit Diagnoses Diagnosis Type II or unspecified type diabetes mellitus without mention of complication, not stated as uncontrolled- Primary Pure hypercholesterolem Pure hypercholesterolemia documented in this encounter Care Teams Environmental Engineering Aide Relationship Specialty Start Date End Date Nani Alejandro MD PCP - General Family Practice 03/06/15 11/17/15 documented as of this encounter
--- OUTSIDE RECORDS SUMMARY | 2025-06-16 09:04 | XMS_ITS | Encounter Summary ---
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 Social History Tobacco Use Types Packs/Day Years Used Date Smoking Tobacco: Never Assessed Comments Unknown Sex and Gender Information Value Date Recorded Sex Assigned at Not on file 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
--- OUTSIDE RECORDS SUMMARY | 2025-06-16 09:04 | XMS_ITS | Encounter Summary ---
Author Organization [facility] Address [address] [place] [address] Care Team Providers Care Manager Of Care Name Role Phone Nani Alejandro MD Primary Care Provider +1- [phone] Encounter Details Date Type Department Care Team (Latest Contact Info) Description 10/07/2001 Outpatient Historical [facility] Medicine- [address] [address] Gómez Gloria MD [address] [address] HYPERTENSION NOS (Primary Dx); Pure hypercholesterolem Social History Tobacco Use Types Packs/Day Years Used Date Smoking Tobacco: Never Assessed Comments Unknown Sex and Gender Information Value Date Recorded Sex Assigned at Not on file Legal Sex Female 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
--- OUTSIDE RECORDS SUMMARY | 2025-06-16 09:04 | XMS_ITS | Encounter Summary ---
Author Organization [facility] Address [address] [place] [address] Care Team Providers Care Terminal Carman Name Role Phone Nani Alejandro MD Primary Care Provider +1- [phone] Encounter Details Date Type Department Care Team (Latest Contact Info) Description 02/22/2002 Outpatient Historical [address] [address] Gómez Gloria MD [address] [address] DIABETES UNCOMPL ADULT-TYPE II (CMS/HCC) (Primary Dx) Social History Tobacco Use Types Packs/Day Years Used Date Smoking Tobacco: Never Assessed Comments Unknown Sex and Gender Information Value Date Recorded Sex Assigned at Not on file 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
--- OUTSIDE RECORDS SUMMARY | 2025-06-16 09:04 | XMS_ITS | Encounter Summary ---
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
--- OUTSIDE RECORDS SUMMARY | 2025-06-16 09:04 | XMS_ITS | Encounter Summary ---
Author Organization [facility] Address [address] [place] [address] Care Team Providers Care Biomedical Specialist Name Role Phone Nani Alejandro MD Primary Care Provider +1- [phone] Encounter Details Date Type Department Care Team (Latest Contact Info) Description 01/22/2003 Outpatient Historical [facility]- [address] [address] Gómez Gloria MD [address] [address] DIABETES UNCOMPL ADULT-TYPE II ([facility]/HCC) (Primary Dx); Gynecologic examination; ROSACEA; HYPERTENSION NOS Social History Tobacco Use Types Packs/Day Years Used Date Smoking Tobacco: Never Assessed Comments Unknown Sex and Gender Information Value Date Recorded Sex Assigned at Not on file Legal Sex Female 4:35 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
--- OUTSIDE RECORDS SUMMARY | 2025-06-16 09:04 | XMS_ITS | Encounter Summary ---
Author Organization [facility] Address [address] [facility] Attn: Epic [place] [id number] Care Team Providers Care Health Occupations Teacher Name Role Phone Nani Alejandro MD Primary Care Provider +1- [phone] Encounter Details Date Type Department Care Team (Late st Contact Info) Description 01/02/2002 Outpatient Historical Gómez Gloria MD [address] [facility] [address] [place] [id number] Social History Tobacco Use Types Packs/Day Years Used Date Smoking Tobacco: Never Assessed Comments Unknown Sex and Gender Information Value Date Recorded Sex Assigned at Not on file Legal Sex Female 4:35 AM 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
--- OUTSIDE RECORDS SUMMARY | 2025-06-16 09:04 | XMS_ITS | Encounter Summary ---
Author Organization [facility] Address [address] [place] [address] Care Team Providers Care Voice Writing Reporter Name Role Phone Nani Alejandro MD Primary Care Provider +1- [phone] Encounter Details Date Type Department Care Team (Late st Contact Info) Description 01/22/2003 Outpatient Historical [address] [address] [facility] [address] [place], [address] Social History Tobacco Use Types Packs/Day Years Used Date Smoking Tobacco: Never Assessed Comments Unknown Sex and Gender Information Value Date Recorded Sex Assigned at Not on file Legal Sex Female 4:35 AM IUSS ACOUSTIC ANALYST Gender Identity Not on file Sexual Orientation Not on file documented as of this encounter Plan of Treatment Not on file documented as of this encounter Visit Diagnoses Not on filedocumented in this encounter Care Teams Voice Writing Reporter Relationship Specialty Start Date End Date Nani Alejandro MD PCP - General Family Practice 03/06/15 11/17/15 documented as of this encounter
--- OUTSIDE RECORDS SUMMARY | 2025-06-16 09:04 | XMS_ITS | Encounter Summary ---
Author Organization [facility] Address [address] [place] [address] Care Team Providers Care Drain Tile Machine Operator Name Role Phone Nani Aleajndro MD Primary Care Provider +1- [phone] Encounter Details Date Type Department Care Team (Latest Contact Info) Description 05/16/2003 Outpatient Historical [address] [address] Gómez Gloria MD [address] [address] CONJUNCTIVITIS NOS (Primary Dx); DIABETES UNCOMPL ADULT-TYPE II ([facility]) Social History Tobacco Use Types Packs/Day Years Used Date Smoking Tobacco: Never Assessed Comments Unknown Sex and Gender Information Value Date Recorded Sex Assigned at Not on file Legal Sex Female 4:35 AM INDUSTRIAL RELATIONS ANALYST Gender Identity Not on file Sexual Orientation Not on file documented as of this encounter Plan of Treatment Not on file documented as of this encounter Visit Diagnoses Diagnosis Conjunctivitis unspecified- Primary Conjunctivitis, unspecified Type II or unspecified type diabetes mellitus without mention of complication, not stated as uncontrolled documented in this encounter Care Teams Drain Tile Machine Operator Relationship Specialty Start Date End Date Nani Alejandro MD PCP - General Family Practice 03/06/15 11/17/15 documented as of this encounter
--- OUTSIDE RECORDS SUMMARY | 2025-06-16 09:04 | XMS_ITS | Clinical Summary ---
Author Organization [facility] Address [address] [address] Phone Care Team Providers Care [employer] Agriculture Teacher Name Role Phone Darian Jameson MD Primary Care Provider + Allergies Active Allergy Reactions Criticality Noted Date Comments Aspirin 07/29/2020 Other reaction(s): Unknown Ibuprofen 07/29/2020 Other reaction(s): Unknown Penicillamine 07/29/2020 Other reaction(s): Unknown Penicillin G Procaine 02/26/2008 Penicillins Rash Low 03/12/2015 Percodan Wendie 07/29/2020 Other reaction(s): Unknown Medications glimepiride (Amaryl) 4 mg tablet every 12 (twelve) hours. 2MG in AM and 4 MG at bedtime Active lisinopriL (Prinivil, Zestril) 20 mg tablet 1 tablet. Active fluticasone (Flonase) 50 mcg/actuation nasal spray Flonase Active melatonin 3 mg tablet 1 tablet 1 (one) time each day at the same time. Active exenatide microspheres 2 mg/0.65 mL pen injector as directed Subcutaneous Active cholecalciferol (Vitamin D-3) 25 mcg (1,000 unit) capsule 1 capsule 1 (one) time each day at the same time. Active cyanocobalamin/f olic acid (vitamin U19-mdxjs acid) 1,000-400 mcg lozenge 1 tablet 1 (one) time each day at the same time. Active glucose blood (Blood Glucose Test) test strip Blood Glucose Test Strip Active FreeStyle lancets 28 gauge FreeStyle Lancets Active cetirizine (ZyrTEC) 10 mg capsule ZyrTEC Active spironolactone (Aldactone) 25 mg tablet 1 (one) time each day at the same time. Active fluticasone propion-salmeter oL (Advair DiskUS) 100-50 mcg/dose diskus inhaler Inhalation Active albuterol (Proventil;Roque shankar) 90 mcg/actuation inhaler 2 puffs every 4 (four) hours. Active atorvastatin (Lipitor) 80 mg tablet 3 tablets. Active carvediloL (Coreg) 3.125 mg tablet 1 tablet every 12 (twelve) hours. Active metFORMIN (Glucophage) 500 mg tablet 1 tablet 2 (two) times a day. Active flash glucose scanning reader [facility] as directed Active azithromycin (Zithromax) 250 mg tablet 0 Active Fluad Quad 2020-21,65y up,,PF, 60 mcg (15 mcg x 4)/0.5 mL syringe ADM 0.5ML IM UTD 0 Active cyclobenzaprine (Flexeril) 5 mg tablet TAKE 1 TO 2 TABLETS BY MOUTH EVERY 8 HOURS NEEDED FOR NECK PAIN AND SPASM 0 Active Vitamin B-12 1,000 mcg tablet 1 Active mometasone (Elocon) 0.1 % cream APPLY TOPICALLY TO AFFECTED AREA TWICE DAILY FOR ONE WEEK 1 Active Allergy Relief, loratadine, 10 mg tablet 2 Active Active Problems No known active problems Encounters Date Type Department Care Team Description 05/08/2025 10:45 AM CDT Procedure Visit [facility] [address] [place] [address] [address] DPM 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); Dermatophytosis of nail from Last 3 Months Immunizations Immunization Administration Dates Next Due Influenza TIV (IM) 09/09/2017 Social History Tobacco Use Types Packs/Day Years Used Date Smoking Tobacco: Never Smokeless Tobacco: Never Tobacco Cessation:Counseling Given: Not Answered PHQ-2 Answer Date Recorded Patient Health Questionnaire-2 Score 0 05/08/2025 [facility] - Mental Health Answer Date Recorde d Little interest or pleasure in doing things Not at all 05/08/2025 Feeling down, depressed, or hopeless Not at all 05/08/2025 Feeling of Stress Not on file 05/08/2025 Comments Unknown Sex and Gender Information Value Date Recorded Sex Assigned at Not on file Legal Sex Female 11:34 AM CDT Gender Identity Not on file Sexual Orientation Not on file Last Filed Vital Signs Vital Sign Reading Time Taken Comments Blood Pressure 131/80 05/08/2025 10:36 AM CDT Pulse 70 05/08/2025 10:36 AM CDT Temperature 36.2 C (97.2 F) 05/08/2025 10:36 AM CDT Respiratory Rate 20 05/08/2025 10:36 AM CDT Oxygen Saturation 95% 05/08/2025 10:36 AM CDT Inhaled Oxygen Concentration - - Weight 79.4 kg (175 lb) 05/08/2025 10:36 AM CDT Height 162.6 cm (5' 4 ) 05/08/2025 10:36 AM CDT Body Mass Index 30.04 05/08/2025 10:36 AM CDT Plan of Treatment Upcoming Encounters Date Type Department Care Team (Late st Contact Info) Description 07/24/2025 10:30 AM CDT Procedure Visit [facility] [address] [place] [address] [address], [place] [address] Health Maintenance Due Date Last Done Comments Creatinine Level 1939 Diabetes: Hemoglobin A1C 1939 Potassium Level 1939 MMR Vaccines (1 of 1 - Standard series) 1940 DTaP,Tdap,and Td Vaccines (1 - Tdap) 1946 Diabetes: Foot Exam 1949 Diabetes: Retinopathy Screening 1949 Varicella Vaccines (1 of 2 - 13+ 2-dose series) 1952 Social Drivers of Health (SDoH) 1957 Medicare Initial AWV [id number] 06/22/2005 RSV Vaccines (1 - 1-dose 75+ series) 2014 Mammogram 09/18/2016 09/18/2015, 04/23, 05/18/2013 COVID-19 Vaccine ( season) 2024 Complete Fall Risk Assessment 04/27/2025 04/27/2024, 04/27/2024, 04/27/2024, Additional history exists Influenza Vaccine (#1) 2025 , 08/24/2023, 09/01/2022, Additional history exists Depression Screening 05/09/2026 05/08/2025 Zoster Vaccines Completed 10/05/2019, 07/27/2019 Pneumococcal Vaccine: 50+ Years Completed 08/24/2023, 12/26/2014, 09/30/2001 Pneumococcal Vaccine Completed 08/24/2023, 12/26/2014, 09/30/2001 HIB Vaccines Aged Out No longer eligi ble based on patient's age to complete this topic HPV Vaccines Aged Out No longer eligi ble based on patient's age to complete this topic Hepatitis A Vaccines Aged Out No long er eligible based on patient's age to complete this topic Hepatitis B Vaccines Aged Out No long er eligible based on patient's age to complete this topic IPV Vaccines Aged Out No longer eligi ble based on patient's age to complete this topic Meningococcal B Vaccine Aged Out No l onger eligible based on patient's age to complete this topic Meningococcal Vaccine Aged Out No uday adele eligible based on patient's age to complete this topic Rotavirus Vaccines Aged Out No longer eligible based on patient's age to complete this topic Insurance MEDICARE Care Teams High School Agriculture Teacher Relationship Specialty Start Date End Date Darian Jameson MD [address] [place] [address] PCP - General Family Medicine 08/23/20
--- OUTSIDE RECORDS SUMMARY | 2025-06-16 09:04 | XMS_ITS | Encounter Summary ---
Author Organization [facility] Address [address] [place] [address] Care Team Providers Care Bevel Polisher Name Role Phone Nani Alejandro MD Primary Care Provider +1- [phone] Encounter Details Date Type Department Care Team (Latest Contact Info) Description 02/08/2002 Outpatient Historical [facility]- [address] [address] Gómez Gloria MD [address] [address] DIABETES UNCOMPL ADULT-TYPE II (CMS/HCC) (Primary Dx); OTHER MALAISE AND FATIGUE; Pure hypercholesterolem Social History Tobacco Use Types Packs/Day Years Used Date Smoking Tobacco: Never Assessed Comments Unknown Sex and Gender Information Value Date Recorded Sex Assigned at Not on file 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 Sex Female 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
--- OUTSIDE RECORDS SUMMARY | 2025-06-16 09:04 | XMS_ITS | Encounter Summary ---
Author Organization [facility] Address [address] [place] [address] Care Team Providers Care Slurry Man Name Role Phone Nani Alejandro MD Primary Care Provider +1- [phone] Encounter Details Date Type Department Care Team (Latest Contact Info) Description 08/23/2002 Outpatient Historical [address] [address] Gómez Gloria MD [address] [address] VACCINE FOR INFLUENZA (Primary Dx) Social History Tobacco Use Types Packs/Day Years Used Date Smoking Tobacco: Never Assessed Comments Unknown Sex and Gender Information Value Date Recorded Sex Assigned at Not on file 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
--- OUTSIDE RECORDS SUMMARY | 2025-06-16 09:04 | XMS_ITS | Encounter Summary ---
Author Organization [facility] Address [address] [place] [address] Care Team Providers Care Lock Operator Name Role Phone Nani Alejandro MD Primary Care Provider +1- [phone] Encounter Details Date Type Department Care Team (Latest Contact Info) Description 09/30/[address] [facility]- [address] [address] Gómez Gloria MD [address] [address] VACCINE FOR INFLUENZA (Primary Dx); VACCINE FOR SINGLE BACT DIS OTHER Social History Tobacco Use Types Packs/Day Years Used Date Smoking Tobacco: Never Assessed Comments Unknown Sex and Gender Information Value Date Recorded Sex Assigned at Not on file Legal Sex Female 4:35 AM HEALTH EDUCATOR Gender Identity Not on file Sexual Orientation Not on file documented as of this encounter Plan of Treatment Not on file documented as of this encounter Visit Diagnoses Diagnosis Need vaccination-viral disease- Primary Need for prophylactic vaccination and inoculation against other viral diseases Need for other specified prophylactic vaccination against single bacterial disease documented in this encounter Care Teams Lock Operator Relationship Specialty Start Date End Date Nani Alejandro MD PCP - General Family Practice 03/06/15 11/17/15 documented as of this encounter
--- OUTSIDE RECORDS SUMMARY | 2025-06-16 09:04 | XMS_ITS | Clinical Summary ---
Author Organization [facility] Address [address] [facility] [place] [address] Care Team Providers Care Shipping Track Supervisor Name Role Phone Unavailable Primary Care Provider Unavailabl e Allergies Active Allergy Reactions Criticality Noted Date Comments Aspirin Other (See Comments) 03/12/2015 Bleeding. Oxycodone Onp-Vfrkgyxkg-Vmz Nausea and Vomiting Low 03/12/2015 Penicillins Rash Low 03/12/2015 Medications glimepiride (AMARYL) 4 mg tablet Take 4 mg by mouth daily at bedtime. Active omega-3 fatty acids-fish oil 300-1,000 mg Capsule Take 2 Caps by mouth 2 times daily. Active atorvastatin (LIPITOR) 20 mg tablet Take 20 mg by mouth Daily LATE Take with 40 mg to make 60 mg daily. . Active carvedilol (COREG) 3.125 mg tablet Take 3.125 mg by mouth 2 times daily with meals. Active atorvastatin (LIPITOR) 40 mg tablet Take 40 mg by mouth Daily LATE Take with 20 mg to make 60 mg daily. . Active lisinopril (PRINIVIL) 20 mg tablet Take 20 mg by mouth daily. Active spironolactone (ALDACTONE) 50 mg tablet Take 50 mg by mouth daily. Active tiotropium (SPIRIVA) 18 mcg capsule Take 18 mcg by inhalation daily. Active albuterol sulfate (VENTOLIN HFA) 90 mcg/Actuation inhaler Take 2 Puffs by inhalation 4 times daily as needed for Shortness of Breath. Active budesonide-formote rol (SYMBICORT) 80-4.5 mcg/actuation HFA Aerosol Inhaler Take 2 Puffs by inhalation 2 times daily. Active cyanocobalamin 1,000 mcg Tablet Take 1,000 mcg by mouth daily. Active azelastine (ASTELIN) 137 mcg/actuation nasal spray Administer 2 Sprays in each nostril 2 times daily. Active triamcinolone acetonide (KENALOG) 0.5 % Cream Apply to affected area 2 times daily. Active metFORMIN (GLUCOPHAGE) 1,000 mg tabletIndications: Diabetes mellitus type II, uncontrolled Take 1 Tab (1,000 mg) by mouth 2 times daily with meals. 180 Tab 1 5 Active coenzyme Q10 Capsule Take 10 mg by mouth daily. Active ascorbic acid (VITAMIN C) 500 mg tablet Take 500 mg by mouth daily. Active blood sugar diagnostic (BLOOD GLUCOSE TEST) Strip Free style light test strips. Check blood sugar three times daily. DX: 250.00. 100 Each 3 5 Active cetirizine (ZYRTEC) 10 mg tablet Take 1 Tablet (10 mg) by mouth daily. 90 Tablet 0 5 Active levothyroxine 25 mcg tabletIndications: Acquired hypothyroidism Take 1 Tablet (25 mcg) by mouth daily hog pusher. 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 Still Obesity (BMI 30.0-34.9) 10/20/2015 Mild persistent asthma without complication 09/23 Acquired hypothyroidism 10/20/2015 Visit for screening mammogram 09/26/2015 Overview (09/26/2015): Normal mammo 08/2015 DM (diabetes mellitus) 03/13/2015 HTN (hypertension) 03/13/2015 Hyperlipidemia 03/13/2015 COPD (chronic obstructive pulmonary disease) Environmental allergies 03/13/2015 Sleep apnea 03/13/2015 Immunizations Immunization Administration Dates Next Due (PNEUMOVAX 23)(50 YRS UP) PN EUMOCOCCAL POLYSACCHARIDE (PPV23) 0.5 ML, IM 09/30/2001 Influenza Seasonal Unspecifi ed Formulation IM 08/23/2015,09/04/2003,08/23/2002,09/30 Social History Tobacco Use Types Packs/Day Years Used Date Smoking Tobacco: Former Smokeless Tobacco: Never Alcohol Use Standard Drinks/Week Comments No 0 (1 standard drink = 0.6 oz pur e alcohol) Comments No Sex and Gender Information Value Date Recorded Sex Assigned at Not on file 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 Sex 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 Gender Identity Not on file Sexual Orientation Not on file Last Filed Vital Signs Vital Sign Reading Time Taken Comments Blood Pressure 120/58 09/11/2015 9:11 AM CDT Pulse 78 09/11/2015 9:11 AM CDT Temperature 36.3 C (97.4 F) 09/11/2015 9:11 AM CDT Respiratory Rate 20 09/11/2015 9:11 AM CDT Oxygen Saturation 92% 09/11/2015 9:11 AM CDT Inhaled Oxygen Concentration - - Weight 88.9 kg (196 lb) 09/11/2015 9:11 AM CDT Height 163.8 cm (5' 4.5 ) 09/11/2015 9:11 AM CDT Body Mass Index 33.12 09/11/2015 9:11 AM CDT Plan of Treatment Health Maintenance Due Date Last Done Comments DIABETES ANNUAL FOOT EXAM 1957 DTAP/TDAP/TD VACCINES (1 - Tdap) 1958 ZOSTER VACCINE (1 of 2) 1989 PNEUMOCOCCAL VACCINE 50+ YEA RS (2 of 2 - PCV) 09/30/2002 09/30/2001 DIABETES MICROALBUMIN ANNUAL SCREEN 12/29/2013 12/29/2012 RSV VACCINE (60+ or ) (1 - 1-dose 75+ series) 2014 LDL CHOLESTEROL ANNUAL 04/29/2016 5, 08/15/2014, 02/02/2014, Additional history exists DIABETES HBA1C Q 6 MONTHS 03/17/20182016, 09/11/2015, 04/29/2015, Additional history exists DIABETES ANNUAL RETINAL EXAM 04/05/2018 04/05/2017, 06/01/2016 OSTEOPOROSIS SCREENING 02/02/2019 02/02/2014 INFLUENZA VACCINE (#1) 2025 5, 09/04/2003, 08/23/2002, Additional history exists Procedures Procedure Name Priority Date/Time Associated Diagnosis Comments LIPID PANEL Routine 04/29/2015 XR DEXA BONE DENSITY 2 SITES Routine 02/02/2014 MICROALBUMIN/CREATININ E RATIO, RANDOM UR Routine 12/29/2012 from Last 3 Months or Most Recently Relevant to Health Maintenance Results * LIPID PANEL (04/29/2015) ABSTRACTED CHOLESTEROL 132 EXTERNAL LAB ABSTRACTED TRIGLYCERIDE 139 EXTERNAL LAB ABSTRACTED HDL 38 EXTERNAL LAB ABSTRACTED LDL CALCULATED 66 EXTERNAL LAB CHOLESTEROL <=200 mg/dL EXTERNAL LAB CHOLESTEROL EXTERNAL LAB TRIGLYCERIDE <=150 mg/dL EXTERNAL LAB TRIGLYCERIDE EXTERNAL LAB HDL 40 - 59 mg/dL EXTERNAL LAB HDL EXTERNAL LAB LDL CALCULATED <=100 mg/dL EXTERNAL LAB LDL CALCULATED EXTERNAL LAB CALCULATED LDL CHOLESTEROL mg/dL EXTERNAL LAB CALCULATED TOTAL CHOLESTEROL TO HDL RATIO EXTERNAL LAB CHOL/HDL RATIO EXTERNAL LAB VLDL-3 (REMNANT LIPO) mg/dL EXTERNAL LAB LIPID PANEL COMMENT EXTERNAL LAB RISK FACTOR EXTERNAL LAB RESULT COMMENT, CHEMISTRY EXTERNAL LAB Blood specimen (specimen) 04/29/2015 us Sia Mc[facility] CHEMISTRY ORDERABLES Final Result EXTERNAL LAB * XR DEXA BONE DENSITY 2 SITES (02/02/2014) Anatomical Region Laterality Modality Other us Abstract Sp Provider DIAGNOSTIC IMAGING ORDERAB LES Final Result * MICROALBUMIN/CREATININE RATIO, RANDOM UR (12/29/2012) ABSTRACTED MICROALBUMIN,UR INE 14.5 EXTERNAL LAB MICROALBUMIN, URINE mg/dL EXTERNAL LAB CREATININE, URINE EXTERNAL LAB MICROALBUMIN/CR EAT RATIO, UR EXTERNAL LAB MICROALBUMIN, URINE mg/dL EXTERNAL LAB CREATININE, URINE 29.0 - 226.0 mg/dL EXTERNAL LAB MICROALBUMIN/CR EAT RATIO, UR mg/g Creatinine EXTERNAL LAB Urine specimen (specimen) 12/29/2012 us Abstract Sp Provider URINE ORDERABLES Final Res ult EXTERNAL LAB from Last 3 Months or Most Recently Relevant to Health Maintenance Insurance MEDICARE PART A AND B [place]
--- OUTSIDE RECORDS SUMMARY | 2025-06-16 09:04 | XMS_ITS | Encounter Summary ---
Author Organization [facility] Address [address] [place] [address] Care Team Providers Care Education Assistant Name Role Phone Nani Alejandro MD Primary Care Provider +1- [phone] Encounter Details Date Type Department Care Team (Late st Contact Info) Description 05/16/[address] [address] [facility] 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
--- OUTSIDE RECORDS SUMMARY | 2025-06-16 09:04 | XMS_ITS | Encounter Summary ---
Author Organization [facility] Address [address] [place] [address] Care Team Providers Care Energy Consultant Name Role Phone Nani Alejandro MD Primary Care Provider +1- [phone] Encounter Details Date Type Department Care Team (Latest Contact Info) Description 08/15/2003 Outpatient Historical [facility]- [address] [address] Gómez Gloria MD [address] [address] DIABETES UNCOMPL ADULT-TYPE II (CMS/HCC) (Primary Dx); Pure hypercholesterolem; HYPERTENSION NOS Social History Tobacco Use Types Packs/Day Years Used Date Smoking Tobacco: Never Assessed Comments Unknown Sex and Gender Information Value Date Recorded Sex Assigned at Not on file Legal Sex Female 4:35 AM 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
--- OUTSIDE RECORDS SUMMARY | 2025-06-16 09:04 | XMS_ITS | Encounter Summary ---
Author Organization [facility] Address [address] [place] [address] Care Team Providers Care Avionics Engineer Name Role Phone Nani Alejandro MD Primary Care Provider +1- [phone] Encounter Details Date Type Department Care Team (Latest Contact Info) Description 02/19/2003 Outpatient Historical [facility] G[facility]mez Gloria MD [address] [facility] [address] [place] [address] UNSP ABNORMAL MAMMOGRAM (Primary Dx) Social History Tobacco Use Types Packs/Day Years Used Date Smoking Tobacco: Never Assessed Comments Unknown Sex and Gender Information Value Date Recorded Sex Assigned at Not on file 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
--- OUTSIDE RECORDS SUMMARY | 2025-06-16 09:04 | XMS_ITS | Encounter Summary ---
Author Organization [facility] Address [address] [place] [address] Care Team Providers Care Rn Correctional Name Role Phone Nani Alejandro MD Primary Care Provider +1- [phone] Encounter Details Date Type Department Care Team (Late st Contact Info) Description 01/22/2003 Outpatient Historical [address] [address] [facility], 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
--- OUTSIDE RECORDS SUMMARY | 2025-06-16 09:04 | XMS_ITS | Encounter Summary ---
Author Organization [facility] Address [address] [place] [address] Care Team Providers Care Hospital Ward Clerk Name Role Phone Nani Alejandro MD Primary Care Provider +1- [phone] Encounter Details Date Type Department Care Team (Latest Contact Info) Description 03/27/2002 Outpatient [facility] Medicine[address] [address] Gómez Gloria MD [address] [address] Pure hypercholesterolem (Primary Dx); AFTERCARE TECHNICAL EDITOR USE MEDICATN; ABN BLOOD CHEMISTRY NEC Social History Tobacco Use Types Packs/Day Years Used Date Smoking Tobacco: Never Assessed Comments Unknown Sex and Gender Information Value Date Recorded Sex Assigned at Not on file 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
--- OUTSIDE RECORDS SUMMARY | 2025-06-16 09:04 | XMS_ITS | Encounter Summary ---
Author Organization [facility] Address [address] [place] [address] Care Team Providers Care Nail Tech Name Role Phone Nani Alejandro MD Primary Care Provider +1- [phone] Encounter Details Date Type Department Care Team (Late st Contact Info) Description 12/25/2002 Outpatient Historical [address] [address] [facility], 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
--- OUTSIDE RECORDS SUMMARY | 2025-06-16 09:04 | XMS_ITS | Encounter Summary ---
Author Organization [facility] Address [address] [place] [address] Care Team Providers Care Supervisor Motorcycle Repair Shop Name Role Phone Nani Alejandro MD Primary Care Provider +1- [phone] Encounter Details Date Type Department Care Team (Latest Contact Info) Description 08/14/2002 Outpatient Historical [facility]- [address] [address] Gómez Gloria MD [address] [address] DIABETES UNCOMPL ADULT-TYPE II (CMS/HCC) (Primary Dx); ENDOCRINE DISORDER NOS; Pure hypercholesterolem Social History Tobacco Use Types Packs/Day Years Used Date Smoking Tobacco: Never Assessed Comments Unknown Sex and Gender Information Value Date Recorded Sex Assigned at Not on file 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
--- OUTSIDE RECORDS SUMMARY | 2025-06-16 09:04 | XMS_ITS | Clinical Summary ---
Author Organization [facility] Address [address] [facility] Attn: [place] [address] Care Team Providers Care Web Content Writer Name Role Phone Unavailable Primary Care Provider Unavailabl e Allergies Active Allergy Reactions Criticality Noted Date Comments Aspirin Other (See Comments) 03/12/2015 Bleeding. Oxycodone [id number] Nausea and Vomiting Low 03/12/2015 Penicillins Rash Low 03/12/2015 Medications atorvastatin (LIPITOR) 20 mg tablet Take 20 mg by mouth Daily LATE Take with 40 mg to make 60 mg daily. . 5 Active cetirizine (ZyrTEC) 10 mg tablet Take 1 Tablet (10 mg) by mouth daily. 90 Tablet 0 5 Active spironolactone (ALDACTONE) 50 mg tablet Take 50 mg by mouth daily. 5 Active coenzyme Q10 Capsule Take 10 mg by mouth daily. 5 Active cyanocobalamin 1,000 mcg Tablet Take 1,000 mcg by mouth daily. 5 Active azelastine (ASTELIN) 137 mcg/actuation nasal spray Administer 2 Sprays in each nostril 2 times daily. 5 Active glimepiride (AMARYL) 4 mg tablet Take 4 mg by mouth daily at bedtime. 5 Active triamcinolone acetonide (KENALOG) 0.5 % Cream Apply to affected area 2 times daily. 5 Active blood sugar diagnostic Strip Free style light test strips. Check blood sugar three times daily. DX: 250.00. 100 Each 3 5 Active albuterol sulfate 90 mcg/Actuation inhaler Take 2 Puffs by inhalation 4 times daily as needed for Shortness of Breath. 5 Active ascorbic acid, vitamin C, (VITAMIN C) 500 mg tablet Take 500 mg by mouth daily. Active lisinopriL (PRINIVIL) 20 mg tablet Take 20 mg by mouth daily. Active tiotropium (SPIRIVA) 18 mcg capsule Take 18 mcg by inhalation daily. Active metFORMIN (GLUCOPHAGE) 1,000 mg tabletIndications: Diabetes mellitus type II, uncontrolled Take 1 Tab (1,000 mg) by mouth 2 times daily with meals. 180 Tablet 1 5 Active carvediloL (COREG) 3.125 mg tablet Take 3.125 mg by mouth 2 times daily with meals. 5 Active levothyroxine 25 mcg tabletIndications: Acquired hypothyroidism Take 1 Tablet (25 mcg) by mouth daily cook fruit. 30 Tablet 1 5 Active atorvastatin (LIPITOR) 40 mg tablet Take 40 mg by mouth Daily LATE Take with 20 mg to make 60 mg daily. . 5 Active budesonide-formote roL (SYMBICORT) 80-4.5 mcg/actuation HFA Aerosol Inhaler Take 2 Puffs by inhalation 2 times daily. 5 Active omega-3 fatty acids-fish oil 300-1,000 mg Capsule Take 2 Caps by mouth 2 times daily. 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 Still Acquired hypothyroidism 10/20/2015 Obesity (BMI 30.0-34.9) 10/20/2015 Mild persistent asthma without complication 09/23 Visit for screening mammogram 09/26/2015 Overview (03/20/2021): Normal mammo 08/2015 DM (diabetes mellitus) 03/13/2015 HTN (hypertension) 03/13/2015 COPD (chronic obstructive pulmonary disease) Sleep apnea 03/13/2015 Hyperlipidemia 03/13/2015 Environmental allergies 03/13/2015 Immunizations Immunization Administration Dates Next Due (PNEUMOVAX 23)(50 YRS UP) PN EUMOCOCCAL POLYSACCHARIDE (PPV23) 0.5 ML, IM 09/30/2001 Influenza Seasonal Unspecifi ed Formulation IM 08/23/2015,09/04/2003,08/23/2002,09/30 Social History Tobacco Use Types Packs/Day Years Used Date Smoking Tobacco: Former Smokeless Tobacco: Never Alcohol Use Standard Drinks/Week Comments No 0 (1 standard drink = 0.6 oz pur e alcohol) Comments Unknown Sex and Gender Information Value Date Recorded Sex Assigned at Not on file Legal Sex Female 12:46 AM FASHION EDITOR Gender Identity Not on file Sexual Orientation Not on file Last Filed Vital Signs Vital Sign Reading Time Taken Comments Blood Pressure 120/58 09/11/2015 9:11 AM CDT Pulse 78 09/11/2015 9:11 AM CDT Temperature 36.3 C (97.4 F) 09/11/2015 9:11 AM CDT Respiratory Rate 20 09/11/2015 9:11 AM CDT Oxygen Saturation - - Inhaled Oxygen Concentration - - Weight 88.9 [...] EXAM 04/05/2018 04/05/2017, 06/01/2016 OSTEOPOROSIS SCREENING 02/02/2019 02/02/2014, 2013 INFLUENZA VACCINE (#1) 2025 7, 08/23/2015, 09/04/2003, Additional history exists Procedures Procedure Name Priority Date/Time Associated Diagnosis Comments LIPID PANEL Routine 04/29/2015 HEMOGLOBIN A1C 08/15/2014 12:00 AM CDT XR DEXA BONE DENSITY 2 SITES 02/02/2014 12:00 AM CDT MICROALBUMIN/CREATIN INE RATIO, RANDOM UR 12/29/2012 12:00 AM FASHION EDITOR from Last 3 Months or Most Recently Relevant to Health Maintenance Results * LIPID PANEL (04/29/2015) ABSTRACTED CHOLESTEROL 132 EXTERNAL LAB ABSTRACTED TRIGLYCERIDE 139 EXTERNAL LAB ABSTRACTED HDL 38 EXTERNAL LAB ABSTRACTED LDL CALCULATED 66 EXTERNAL LAB CHOLESTEROL EXTERNAL LAB CHOLESTEROL EXTERNAL LAB TRIGLYCERIDE EXTERNAL LAB TRIGLYCERIDE EXTERNAL LAB HDL EXTERNAL LAB HDL EXTERNAL LAB LDL CALCULATED EXTERNAL LAB LDL CALCULATED EXTERNAL LAB CALCULATED LDL CHOLESTEROL EXTERNAL LAB CALCULATED TOTAL CHOLESTEROL TO HDL RATIO EXTERNAL LAB CHOL/HDL RATIO EXTERNAL LAB VLDL-3 (REMNANT LIPO) EXTERNAL LAB LIPID PANEL COMMENT EXTERNAL LAB RISK FACTOR EXTERNAL LAB RESULT COMMENT, CHEMISTRY EXTERNAL LAB Blood 04/29/2015 Narrative EXTERNAL LAB - 04/29/2015 12:00 AM CDT This order was created through External Result Entry Sia Mcneil LASER CUTTER CHEMISTRY ORDERABLES Final Result EXTERNAL LAB * HEMOGLOBIN A1C (08/15/2014 12:00 AM CDT) us [facility]gf Scanning CHEMISTRY ORDERABLES Final Resul t * XR DEXA BONE DENSITY 2 SITES (02/02/2014 12:00 AM CDT) Anatomical Region Laterality Modality Other us Sgf Scanning DIAGNOSTIC IMAGING ORDERABLES Fi nal Result * MICROALBUMIN/CREATININE RATIO, RANDOM UR (12/29/2012 12:00 AM FASHION EDITOR) [facility] [place]LES Final Result from Last 3 Months or Most Recently Relevant to Health Maintenance Insurance MEDICARE PART A AND B [facility] Address: [address] [place] [address]
--- OUTSIDE RECORDS SUMMARY | 2025-06-16 09:04 | XMS_ITS | Encounter Summary ---
Author Organization [facility] Address [address] [place] [address] Care Team Providers Care Art Psychotherapist Name Role Phone Nani Alejandor MD Primary Care Provider +1- [phone] Encounter Details Date Type Department Care Team (Latest Contact Info) Description 09/04/2003 Outpatient Historical [facility] Medicine- [address] [address] Gómez Gloria MD [address] [address] Vaccine for influenza (Primary Dx) Social History Tobacco Use Types Packs/Day Years Used Date Smoking Tobacco: Never Assessed Comments Unknown Sex and Gender Information Value Date Recorded Sex Assigned at Not on file 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
--- NOTE | 2025-06-16 09:21 | CTR_ITS ---
PROCEDURE INFORMATION: Exam: CT Abdomen And Pelvis With Contrast Exam date and time: 06/16/2025 10:26 AM Age: 84 years old Clinical indication: Abdominal pain; Generalized; Prior surgery; Surgery date: 6+ months; Surgery type: Hysto appy; Additional info: Abd pain TECHNIQUE: Imaging protocol: Computed tomography of the abdomen and pelvis with contrast. Radiation optimization: All CT scans at this facility use at least one of these dose optimization techniques: automated exposure control; mA and/or kV adjustment per patient size (includes targeted exams where dose is matched to clinical indication); or iterative reconstruction. Contrast material: OMNI 350; Contrast volume: 100 ml; Contrast route: INTRAVENOUS (IV); COMPARISON: CT kidney stone [id number] 03/14/2025 6:50 PM RADIATION DOSE METRICS: Total DLP (mGy-cm): 733.63 FINDINGS: Lungs: Lung bases: Mild bibasilar atelectasis or scarring. Sequelae of old granulomatous disease. Heart: Coronary atherosclerosis and partially imaged cardiac leads. Liver: No focal mass. Patent main portal vein. Gallbladder and biliary ducts: Cholelithiasis. No pericholecystic fluid. No ductal dilation. Pancreas: Unremarkable. Spleen: Scattered calcified granulomas Adrenal glands: No mass. Kidneys and ureters: Slightly diminished left renal enhancement, compatible with delayed nephrogram. Mild left hydronephrosis. Retained 7 mm calculus near the ureteropelvic junction with surrounding inflammatory stranding. Left perinephric edema. Additional nonobstructing bilateral renal calculi. Stomach and bowel: Small hiatal hernia. Nondistended bowel loops. Extensive scattered colonic gas and stool. Appendix: Nonvisualized. Intraperitoneal space: No free air or free fluid. Vasculature: Extensive atherosclerosis. No abdominal aortic aneurysm. Lymph nodes: No pathologically enlarged lymph nodes. Urinary bladder: Unremarkable as visualized. Reproductive: Surgically absent uterus Bones/joints: Grade 1 retrolisthesis of L3 on L4. Multilevel degenerative changes of the spine. No evidence of acute fracture. Soft tissues: Unremarkable. CT/CT abdomen pelvis w con* [id number] IMPRESSION: 1. Mild left hydronephrosis and delayed nephrogram secondary to an obstructing 7 mm calculus near the ureteropelvic junction. Surrounding inflammatory stranding, recommend correlation for superimposed infection. 2. Additional nonobstructing bilateral renal calculi. 3. Extensive colonic gas and stool, correlate for constipation. 4. Additional chronic and incidental/ancillary findings as above.
--- NOTE | 2025-06-16 09:24 | W.ED.ABDPA2 ---
HPI - Abdominal Pain General: Chief Complaint: Abdominal Pain Stated Complaint: abd pain Time Seen by Provider: 06/16/25 09:16 History of Present Illness: 84-year-old female presents emergency room with abdominal pain and distention. Her last bowel movement was 5 days ago she has markedly distended abdomen she has been vomiting overnight. She has not had any stool for the last several days. She denies dysuria urgency or frequency no hematochezia melena hematemesis coffee-ground emesis. Associated Symptoms: Reports bloating, GI cramping, nausea and vomiting; Denies chills, coffee ground emesis, dysuria, fever(s), hematochezia, hematemesis and melena Related Data Home Medications ?Medication ?Instructions ?Recorded ?Confirmed atorvastatin 80 mg tablet (Lipitor) 80 mg PO QPM 10/02/21 06/16/25 carvedilol 3.125 mg tablet (Coreg) 3.125 mg PO BID 10/02/21 06/16/25 cholecalciferol (vitamin D3) 25 25 mcg PO DAILY 10/02/21 06/16/25 mcg (1,000 unit) capsule loratadine 10 mg tablet (Allergy 10 mg PO DAILY 10/02/21 06/16/25 Relief (loratadine)) mecobalamin (vitamin B12) 1,000 1,000 mcg PO DAILY 10/02/21 06/16/25 mcg chewable tablet spironolactone 50 mg tablet 50 mg PO DAILY 11/07/21 06/16/25 dulaglutide 1.5 mg/0.5 mL 1.5 mg SUBCUT Q7D 11/05/22 06/16/25 subcutaneous [facility] ([facility] metformin 500 mg tablet,extended 500 mg PO BID 06/16/25 06/16/25 release 24 hr Previous Rx's ?Medication ?Instructions ?Recorded hydrocodone 5 mg-acetaminophen 325 1 tab PO Q6H PRN pain #15 tabs 06/16/25 mg tablet lactulose 10 gram/15 mL oral 30 ml PO Q2H PRN constipation 72 06/16/25 solution (Generlac) hours #1,080 mL promethazine 25 mg tablet 25 mg PO Q6H PRN nausea and 06/16/25 vomiting #20 tabs tamsulosin 0.4 mg capsule 0.4 mg PO DAILY #14 caps 06/16/25 Allergies Allergy/AdvReac Type Severity Reaction Status Date / Time aspirin Allergy stomach Verified 02/11/25 02:18 bleed NSAIDS (Non-Steroidal Allergy stomach Verified 02/11/25 02:18 Anti-Inflamma bleed oxycodone (From Percodan) Allergy ADR-Nausea Verified 02/11/25 02:18 Penicillins Allergy hives Verified 02/11/25 02:18 Review of Systems Const: Denies: fever(s) or chills Card: Denies: chest pain Resp: Denies: dyspnea GI: Reports: abdominal pain, nausea, vomiting, bloating and GI cramping; Denies: hematemesis, coffee ground emesis, rectal pain, hematochezia or melena : Denies: dysuria, urinary frequency or urinary urgency Musc: Denies: neck pain or back pain Skin/Breast: Denies: rash PFSH ED PFSH: Medical History COPD (chronic obstructive pulmonary disease) Pacemaker Asthma Diabetes type 2, uncontrolled Over weight Cataract Insomnia Aftercare following left ankle joint replacement surgery Surgical History History of cataract surgery Hx of hysterectomy Hx of tonsillectomy Family History Father Heart attack Mother Heart attack Social History Smoking and tobacco/nicotine status: former use of tobacco/nicotine Quit status (tobacco/nicotine): has quit using Second hand smoke exposure: No Alcohol intake: former Substance/Drug Use: never Adopted: No Caregiver/support person: Yes Lives independently: Yes Household members: none Housing: Apartment Marital status: / Highest education level completed: GED or Equivalent service: No Current occupational status: retired Pets and animals: Yes Sexually active: No Do you think of yourself as: Straight/Heterosexual Current gender identity: Female Isabel/Cheondoism: Uatsdin Special isabel needs: No Agree to transfusion: Yes Physical Exam Const: GENERAL APPEARANCE: cooperative ORIENTATION/CONSCIOUSNESS: Yes awake, Yes oriented to person, Yes oriented to place and Yes oriented to time HENMT: COMMON NORMALS: normocephalic, atraumatic and hearing grossly normal bilaterally HEAD & SCALP: normocephalic and atraumatic Resp: COMMON NORMALS: normal respiratory effort, No retractions, No use of accessory muscles and clear to auscultation bilaterally AUSCULTATION: clear to auscultation bilaterally Cardio: COMMON NORMALS: regular rate, regular rhythm and No murmurs present (Cardio) RATE: regular rate RHYTHM: regular rhythm GI: COMMON NORMALS: No hepatosplenomegaly present INSPECTION: Yes abdominal distension AUSCULTATION: Yes Absent bowel sounds PALPATION: Yes Tenderness to palpation present (GI), No Guarding due to palpation present (GI) and Yes No hepatosplenomegaly present Extremity: COMMON NORMALS: normal to inspection, capillary refill normal, no clubbing, cyanosis or edema, no calf tenderness and no pedal edema Neuro: SENSORIUM/ORIENTATION: Yes oriented to person, Yes oriented to place and Yes oriented to time Skin: COMMON NORMALS: no rashes or lesions noted GENERAL SKIN EXAM: no rashes or lesions noted Course Vital Signs: Vital signs: Vital Signs Temperature 97.9 F 06/16/25 08:56 Pulse Rate 78 06/16/25 08:56 Respiratory Rate 16 06/16/25 08:56 Blood Pressure 165/79 06/16/25 08:56 Pulse Oximetry 94 06/16/25 08:56 Oxygen Delivery Me thod Room Air 06/16/25 08:56 MDM - Abdominal Pain Medical Decision Making Patient found to have a kidney stone. Will discharge home with pain medications strain her urine. No sign of infection. She also had Did have constipation no obstruction. She had good relief of the constipation with the enema given will discharge home with lactulose to use for further relief of constipation case management to refer to urology Medical Records I reviewed the patient's medical records. Lab Data I reviewed the patient's lab results. 06/16/25 09:33 06/16/25 09:33 Labs/Radiology: Radiology Impressions Abdomen/Pelvis CT 06/16/25 09:21 IMPRESSION: 1. Mild left hydronephrosis and delayed nephrogram secondary to an obstructing 7 mm calculus near the ureteropelvic junction. Surrounding inflammatory stranding, recommend correlation for superimposed infection. 2. Additional nonobstructing bilateral renal calculi. 3. Extensive colonic gas and stool, correlate for constipation. 4. Additional chronic and incidental/ancillary findings as above. Laboratory Results WBC 15.02 10^3/uL (3.29-11.43) H 06/16/25 09:33 RBC 4.68 10^6/uL (3.85-5.65) 06/16/25 09:33 Hgb 13.60 g/dL (11.27-16.99) 06/16/25 09:33 Hct 42.4 % (36-47) 06/16/25 09:33 MCV 90.6 fl (85-98) 06/16/25 09:33 MCH 29.1 pg (27-33) 06/16/25 09:33 MCHC 32.1 g/dL (30-55) 06/16/25 09:33 RDW 13.2 % (12.1-15.1) 06/16/25 09:33 Plt Count 269 10^3/cmm (157-399) 06/16/25 09:33 MPV 9.1 fL (7.4-10.4) 06/16/25 09:33 Neut % (Auto) 84.9 % 06/16/25 09:33 Lymph % (Auto) 9.1 % 06/16/25 09:33 [place] % (Auto) 5.5 % 06/16/25 09:33 Eos % (Auto) 0.0 % 06/16/25 09:33 Baso % (Auto) 0.1 % 06/16/25 09:33 Neut # (Auto) 12.75 10^3/uL (1.8-7.7) H 06/16/25 09:33 Lymph # (Auto) 1.4 10^3/uL (0.8-4.8) 06/16/25 09:33 [place] # (Auto) 0.8 10^3/uL (0.2-0.9) 06/16/25 09:33 Eos # (Auto) 0.0 10^3/uL (0.0-0.8) 06/16/25 09:33 Baso # (Auto) 0.0 10^3/uL (0.0-0.1) 06/16/25 09:33 Nucleated RBC % (auto) 0 % 06/16/25 09:33 Nucleated RBCs # 0.0 /100WBC 06/16/25 09:33 Sodium 132 mmol/L (136-145) L 06/16/25 09:33 Potassium 4.3 mmol/L (3.5-5.1) 06/16/25 09:33 Chloride 94 mmol/L (98-107) L 06/16/25 09:33 Carbon Dioxide 21 mmol/L (22-29) L 06/16/25 09:33 Anion Gap 21.3 (5-19) H 06/16/25 09:33 BUN 32 mg/dL (8-23) H 06/16/25 09:33 Creatinine 1.1 mg/dL (0.5-0.9) H 06/16/25 09:33 GFR Calculation Not Reportable 06/16/25 09:33 Glucose 198 mg/dL (65-115) H 06/16/25 09:33 Calculated Osmolality 286 mOsm/kg (285-295) 06/16/25 09:33 Calcium 9.2 mg/dL (8.5-10.5) 06/16/25 09:33 Total Bilirubin 0.4 mg/dL (0.15-1.2) 06/16/25 09:33 AST 23 U/L (0-32) 06/16/25 09:33 ALT 20 U/L (0-33) 06/16/25 09:33 Alkaline Phosphatase 87 U/L (35-105) 06/16/25 09:33 Total Protein 7.5 g/dL (6.6-8.7) 06/16/25 09:33 Albumin 4.0 g/dL (3.5-5.2) 06/16/25 09:33 Globulin 3.5 g/dL (1.3-4.6) 06/16/25 09:33 Lipase 35 U/L (13-60) 06/16/25 09:33 Urine Color Yellow (Yellow) 06/16/25 10:12 Urine Appearance Clear (CLEAR) 06/16/25 10:12 Urine pH 7.0 (5-7) 06/16/25 10:12 Ur Specific [place] 1.018 (1.005-1.030) 06/16/25 10:12 Urine Protein Negative (Negative) 06/16/25 10:12 Urine Glucose (UA) 1+ (Normal) H 06/16/25 10:12 Urine Ketones Trace (Negative) 06/16/25 10:12 Urine Blood Negative (Negative) 06/16/25 10:12 Urine Nitrate Negative (Negative) 06/16/25 10:12 Urine Bilirubin Negative (Negative) 06/16/25 10:12 Urine Urobilinogen 0.2 mg/dL (Negative) 06/16/25 10:12 Ur Leukocyte Esterase Negative (Negative) 06/16/25 10:12 Urine RBC 3-5 /hpf (0-2) 06/16/25 10:12 Urine WBC 0-5 /hpf (0-5) 06/16/25 10:12 Ur Squamous Epith Cells 0-5 /hpf (0-5) 06/16/25 10:12 Amorphous Sediment Not Reportable 06/16/25 10:12 Urine Bacteria None seen /hpf (NONE) 06/16/25 10:12 Hyaline Casts 0-4 /lpf H 06/16/25 10:12 All radiology interpretation(s) finalized by discharge Discharge Plan Discharge Patient Disposition: Home Clinical Impression: Calculus of kidney, Constipation Condition: Stable Prescriptions: New hydrocodone-acetaminophen 5-325 mg tablet 1 tab PO Q6H PRN (Reason: pain) Qty: 15 0RF lactulose [Generlac] 10 gram/15 mL solution 30 ml PO Q2H PRN (Reason: constipation) 3 Days Qty: 1080 0RF Rx Instructions: until desired laxative effect tamsulosin 0.4 mg capsule 0.4 mg PO DAILY Qty: 14 0RF promethazine 25 mg tablet 25 mg PO Q6H PRN (Reason: nausea and vomiting) Qty: 20 0RF No Action atorvastatin [Lipitor] 80 mg tablet 80 mg PO QPM carvedilol [Coreg] 3.125 mg tablet 3.125 mg PO BID Rx Instructions: must administer with a meal/food mecobalamin (vitamin B12) 1,000 mcg tablet,chewable 1,000 mcg PO DAILY cholecalciferol (vitamin D3) 25 mcg (1,000 unit) capsule 25 mcg PO DAILY loratadine [Allergy Relief (loratadine)] 10 mg tablet 10 mg PO DAILY Trulicity 1.5 mg/0.5 mL pen injector 1.5 mg SUBCUT Q7D Rx Instructions: Wednesday spironolactone 50 mg Tablet 50 mg PO DAILY metformin 500 mg tablet extended release 24 hr 500 mg PO BID Discharge Orders: Discharge ED (Routine); Ordered 06/16/25 Ordered By: Grzegorz Coffey Discharge Diet: Usual diet Discharge Activity: Increase activity as tolerated Patient Instructions: Constipation (ED), Kidney Stones (ED), How to Strain Your Urine (ED), Opioid Safety, Pain Management, Patient Portal & Jud Instructions Activity Restrictions/Additional Instructions: Thank you for choosing [facility] for your healthcare needs today. It is very important that you follow up as instructed or that you return to the Emergency Department should you have concerns or if your condition changes or worsens in any way. You were seen in the emergency room with constipation and a markedly distended abdomen. The distention in your abdomen was mostly from retained stool and air. You had good results from enema given in the emergency room you can continue with lactulose until symptoms have improved and your constipation is relieved. Recommend [id number] MiraLAX 1 capful daily to prevent further constipation. Additionally you were found to have a 7 mm kidney stone. You are given pain medication tamsulosin 1. There is no sign of infection at this time this will likely need intervention with the urologist will make an appointment for you to follow-up with urology. 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
[2025-06-16 09:41] LABS: Hematocrit 42.4 % (36-47); Hemoglobin 13.60 g/dL (11.27-16.99); Mean Corpuscular HGB Conc 32.1 g/dL (30-55); Mean Corpuscular Hemoglobin 29.1 pg (27-33); Mean Corpuscular Volume 90.6 fl (85-98); Nucleated Red Blood Cells % 0 %; Platelet Count 269 10^3/cmm (157-399); Red Blood Count 4.68 10^6/uL (3.85-5.65); White Blood Count 15.02 10^3/uL (3.29-11.43)
[2025-06-16 09:59] LABS: Alanine Aminotransferase 20 U/L (0-33); Albumin Level 4.0 g/dL (3.5-5.2); Alkaline Phosphatase 87 U/L (35-105); Anion Gap 21.3 (5-19); Aspartate Amino Transferase 23 U/L (0-32); Blood Urea Nitrogen 32 mg/dL (8-23); Calcium 9.2 mg/dL (8.5-10.5); Carbon Dioxide 21 mmol/L (22-29); Chloride 94 mmol/L (98-107); Creatinine Clr Calc Pharmacy 38.9298; Globulin 3.5 g/dL (1.3-4.6); Glucose 198 mg/dL (65-115); Lipase 35 U/L (13-60); Osmolality Calculated 286 mOsm/kg (285-295); Potassium 4.3 mmol/L (3.5-5.1); Sodium 132 mmol/L (136-145); Total Protein 7.5 g/dL (6.6-8.7)
[2025-06-16] MEDS: ondansetron 2 mg/ML SDV 2 mL 4 MG IVP (10:11)
[2025-06-16] MEDS: iohexol 350 mg/mL 500 mL Btl (per mL) IV (10:36)
[2025-06-16 10:56] LABS: Glucose Urine UA 1+ (Normal); Nitrate Urine Negative (Negative); Specific Gravity, Urine 1.018 (1.005-1.030)
[2025-06-16 10:59] LABS: Add Urine Microscopic? YES
--- NOTE | 2025-06-19 09:21 | PC.SOCIAL ---
Urology Referral Spoke with patient's daughter and she requests referral be faxed to [facility] in [place]. Referral faxed at this time.
== END 2025-06-16 13:20 | disposition home or self-care (01) ==
PROVIDERS: Emergency Provider Family Medicine
DX: N20.0 Calculus of kidney (principal); K59.00 Constipation, unspecified; Z79.84 Long term (current) use of oral hypoglycemic drugs; Z79.85 Long-term (current) use of injectable non-insulin antidiabetic drugs; Z87.891 Personal history of nicotine dependence; E11.9 Type 2 diabetes mellitus without complications; J44.9 Chronic obstructive pulmonary disease, unspecified; Z95.0 Presence of cardiac pacemaker
CPT/HCPCS: 36415; 74177; 80053; 81001; 83690; 85025; 96374; 99285; J2405; J7030

== ENCOUNTER 2025-06-23 16:34 | Emergency (ER) | payer MEDICARE, OTHER, SELFPAY ==
[2025-06-23 16:35] VITALS: PULSE 71; RESP 18; TEMP 36.6; O2SAT 96; BMI 28.6
--- NOTE | 2025-06-23 16:38 | W.ED.FEMALGU ---
HPI - Female Genitourinary General: Chief complaint: Urogenital-Female Stated complaint: blood in urine Time Seen by Provider: 06/23/25 16:35 Source: patient and EMS Mode of arrival: EMS Limitations: no limitations History of Present Illness: 84-year-old female states that she had had a kidney stone was diagnosed a week ago. She states she is not been having any more pain but today when she went to the bathroom she noticed some blood in her urine and it made her concerned. She denies any dysuria she denies any fever she denies any vomiting denies any abdominal or flank pain. Associated symptoms: Deny abdominal pain, headache(s) or nausea Related Data Home Medications ?Medication ?Instructions ?Recorded ?Confirmed atorvastatin 80 mg tablet (Lipitor) 80 mg PO QPM 10/02/21 06/16/25 carvedilol 3.125 mg tablet (Coreg) 3.125 mg PO BID 10/02/21 06/16/25 cholecalciferol (vitamin D3) 25 25 mcg PO DAILY 10/02/21 06/16/25 mcg (1,000 unit) capsule loratadine 10 mg tablet (Allergy 10 mg PO DAILY 10/02/21 06/16/25 Relief (loratadine)) mecobalamin (vitamin B12) 1,000 1,000 mcg PO DAILY 10/02/21 06/16/25 mcg chewable tablet spironolactone 50 mg tablet 50 mg PO DAILY 11/07/21 06/16/25 dulaglutide 1.5 mg/0.5 mL 1.5 mg SUBCUT Q7D 11/05/22 06/16/25 subcutaneous pen injector (Trulicity) metformin 500 mg tablet,extended 500 mg PO BID 06/16/25 06/16/25 release 24 hr Previous Rx's ?Medication ?Instructions ?Recorded hydrocodone 5 mg-acetaminophen 325 1 tab PO Q6H PRN pain #15 tabs 06/16/25 mg tablet promethazine 25 mg tablet 25 mg PO Q6H PRN nausea and 06/16/25 vomiting #20 tabs tamsulosin 0.4 mg capsule 0.4 mg PO DAILY #14 caps 06/16/25 Allergies Allergy/AdvReac Type Severity Reaction Status Date / Time aspirin Allergy stomach Verified 06/23/25 16:41 bleed NSAIDS (Non-Steroidal Allergy stomach Verified 06/23/25 16:41 Anti-Inflamma bleed oxycodone (From Percodan) Allergy ADR-Nausea Verified 06/23/25 16:41 Penicillins Allergy hives Verified 06/23/25 16:41 Review of Systems Const: Denies: fever(s), chills, body aches or change in appetite ENMT: Denies: throat pain or dental pain Card: Denies: chest pain Resp: Denies: dyspnea GI: Denies: abdominal pain, nausea, vomiting or diarrhea : Reports: hematuria; Denies: dysuria Musc: Denies: neck pain or back pain Skin/Breast: Denies: rash Neuro: Denies: headache(s) PFSH ED PFSH: Medical History (Updated 06/23/25 @ 17:18 by Miriam Sykes MD) COPD (chronic obstructive pulmonary disease) Pacemaker Asthma Diabetes type 2, uncontrolled Over weight Cataract Insomnia Aftercare following left ankle joint replacement surgery Surgical History History of cataract surgery Hx of hysterectomy Hx of tonsillectomy Family History Father Heart attack Mother Heart attack Social History Smoking and tobacco/nicotine status: former use of tobacco/nicotine Quit status (tobacco/nicotine): has quit using Second hand smoke exposure: No Alcohol intake: former Substance/Drug Use: never Adopted: No Caregiver/support person: Yes Lives independently: Yes Household members: none Housing: Apartment Marital status: / Highest education level completed: GED or Equivalent service: No Current occupational status: retired Pets and animals: Yes Sexually active: No Do you think of yourself as: Straight/Heterosexual Current gender identity: Female Isabel/Taoist: Yazidi Special isabel needs: No Agree to transfusion: Yes Physical Exam Const: COMMON NORMALS: no acute distress, patient oriented x3 and healthy appearing HENMT: COMMON NORMALS: normocephalic and atraumatic HEAD & SCALP: normocephalic and atraumatic Eye: COMMON NORMALS: conjunctivae normal CONJUNCTIVA: Yes conjunctivae normal Neck/C-Spine: COMMON NORMALS: full ROM and supple Chest: COMMONS NORMALS: normal inspection of the chest Resp: COMMON NORMALS: normal respiratory effort, No retractions, No use of accessory muscles and clear to auscultation bilaterally AUSCULTATION: clear to auscultation bilaterally Cardio: COMMON NORMALS: regular rate, regular rhythm and No murmurs present (Cardio) RATE: regular rate RHYTHM: regular rhythm GI: COMMON NORMALS: Normal to inspection, nondistended, normoactive bowel sounds present, Soft to palpation, non-tender and no masses PALPATION: Yes Soft to palpation Extremity: COMMON NORMALS: normal to inspection and full ROM Neuro: COMMON NORMALS: patient oriented x3, moves all extremities and no focal motor deficits Psych: COMMON NORMALS: mental status grossly normal, Normal thought process present and cooperative THOUGHT PROCESS: Normal thought process present Skin: COMMON NORMALS: no rashes or lesions noted and no wounds GENERAL SKIN EXAM: no rashes or lesions noted Course Vital Signs: Vital signs: Vital Signs Temperature 97.9 F 06/23/25 16:35 Pulse Rate 70 06/23/25 16:47 Respiratory Rate 16 06/23/25 16:47 Blood Pressure 151/89 06/23/25 16:47 Pulse Oximetry 96 06/23/25 16:47 Oxygen Delivery Me thod Room Air 06/23/25 16:47 MDM - Female Medical Decision Making Patient presents here with hematuria likely from her kidney stone she is in no pain here she has no signs UTI white count is coming down we will get her follow-up with urology she is return if worsening she understands agrees to plan Medical Records I reviewed the patient's medical records. Lab Data I reviewed the patient's lab results. 06/23/25 16:44 06/23/25 16:44 Laboratory Results WBC 14.31 10^3/uL (3.29-11.43) H 06/23/25 16:44 RBC 4.10 10^6/uL (3.85-5.65) 06/23/25 16:44 Hgb 12.20 g/dL (11.27-16.99) 06/23/25 16:44 Hct 35.9 % (36-47) L 06/23/25 16:44 MCV 87.6 fl (85-98) 06/23/25 16:44 MCH 29.8 pg (27-33) 06/23/25 16:44 MCHC 34.0 g/dL (30-55) 06/23/25 16:44 RDW 13.2 % (12.1-15.1) 06/23/25 16:44 Plt Count 249 10^3/cmm (157-399) 06/23/25 16:44 MPV 9.3 fL (7.4-10.4) 06/23/25 16:44 Neut % (Auto) 73.8 % 06/23/25 16:44 Lymph % (Auto) 14.1 % 06/23/25 16:44 [place] % (Auto) 9.2 % 06/23/25 16:44 Eos % (Auto) 1.0 % 06/23/25 16:44 Baso % (Auto) 0.3 % 06/23/25 16:44 Neut # (Auto) 10.55 10^3/uL (1.8-7.7) H 06/23/25 16:44 Lymph # (Auto) 2.0 10^3/uL (0.8-4.8) 06/23/25 16:44 [place] # (Auto) 1.3 10^3/uL (0.2-0.9) H 06/23/25 16:44 Eos # (Auto) 0.2 10^3/uL (0.0-0.8) 06/23/25 16:44 Baso # (Auto) 0.0 10^3/uL (0.0-0.1) 06/23/25 16:44 Nucleated RBC % (auto) 0 % 06/23/25 16:44 Nucleated RBCs # 0.0 /100WBC 06/23/25 16:44 PT 14.00 SECONDS (12.1-14.9) 06/23/25 16:44 INR 1.00 (0.8-1.2) 06/23/25 16:44 Sodium 131 mmol/L (136-145) L 06/23/25 16:44 Potassium 4.9 mmol/L (3.5-5.1) 06/23/25 16:44 Chloride 97 mmol/L (98-107) L 06/23/25 16:44 Carbon Dioxide 23 mmol/L (22-29) 06/23/25 16:44 Anion Gap 15.9 (5-19) 06/23/25 16:44 BUN 37 mg/dL (8-23) H 06/23/25 16:44 Creatinine 1.0 mg/dL (0.5-0.9) H 06/23/25 16:44 GFR Calculation Not Reportable 06/23/25 16:44 Glucose 245 mg/dL (65-115) H 06/23/25 16:44 Calculated Osmolality 289 mOsm/kg (285-295) 06/23/25 16:44 Calcium 8.9 mg/dL (8.5-10.5) 06/23/25 16:44 Total Bilirubin 0.2 mg/dL (0.15-1.2) 06/23/25 16:44 AST 21 U/L (0-32) 06/23/25 16:44 ALT 25 U/L (0-33) 06/23/25 16:44 Alkaline Phosphatase 84 U/L (35-105) 06/23/25 16:44 Total Protein 6.5 g/dL (6.6-8.7) L 06/23/25 16:44 Albumin 3.3 g/dL (3.5-5.2) L 06/23/25 16:44 Globulin 3.2 g/dL (1.3-4.6) 06/23/25 16:44 Urine Color Yellow (Yellow) 06/23/25 16:52 Urine Appearance Clear (CLEAR) 06/23/25 16:52 Urine pH 5.5 (5-7) 06/23/25 16:52 Ur Specific [place] 1.017 (1.005-1.030) 06/23/25 16:52 Urine Protein Trace (Negative) A 06/23/25 16:52 Urine Glucose (UA) 2+ (Normal) H 06/23/25 16:52 Urine Ketones Negative (Negative) 06/23/25 16:52 Urine Blood 3+ (Negative) A 06/23/25 16:52 Urine Nitrate Negative (Negative) 06/23/25 16:52 Urine Bilirubin Negative (Negative) 06/23/25 16:52 Urine Urobilinogen 1.0 mg/dL (Negative) 06/23/25 16:52 Ur Leukocyte Esterase Trace (Negative) A 06/23/25 16:52 Urine RBC >100 /hpf (0-2) H 06/23/25 16:52 Urine WBC 0-5 /hpf (0-5) 06/23/25 16:52 Ur Squamous Epith Cells 0-5 /hpf (0-5) 06/23/25 16:52 Amorphous Sediment Not Reportable 06/23/25 16:52 Urine Bacteria None seen /hpf (NONE) 06/23/25 16:52 Hyaline Casts 0-4 /lpf H 06/23/25 16:52 No radiology studies performed this visit Discharge Plan Discharge Patient Disposition: Home Clinical Impression: Hematuria Condition: Stable Prescriptions: No Action atorvastatin [Lipitor] 80 mg tablet 80 mg PO QPM carvedilol [Coreg] 3.125 mg tablet 3.125 mg PO BID Rx Instructions: must administer with a meal/food mecobalamin (vitamin B12) 1,000 mcg tablet,chewable 1,000 mcg PO DAILY cholecalciferol (vitamin D3) 25 mcg (1,000 unit) capsule 25 mcg PO DAILY loratadine [Allergy Relief (loratadine)] 10 mg tablet 10 mg PO DAILY Trulicity 1.5 mg/0.5 mL pen injector 1.5 mg SUBCUT Q7D Rx Instructions: Wednesday spironolactone 50 mg Tablet 50 mg PO DAILY hydrocodone-acetaminophen 5-325 mg tablet 1 tab PO Q6H PRN (Reason: pain) Qty: 15 0RF tamsulosin 0.4 mg capsule 0.4 mg PO DAILY Qty: 14 0RF promethazine 25 mg tablet 25 mg PO Q6H PRN (Reason: nausea and vomiting) Qty: 20 0RF metformin 500 mg tablet extended release 24 hr 500 mg PO BID Discharge Orders: Discharge ED (Routine); Ordered 06/23/25 Ordered By: Miriam Sykes Discharge Diet: Advance as tolerated Discharge Activity: Resume usual activity Patient Instructions: Hematuria (ED) Print Language: Tanzanian Coding Level of Care Code 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
--- OUTSIDE RECORDS SUMMARY | 2025-06-23 16:44 | XMS_ITS | Continuity of Care Document ---
Author Name [facility] Organization [facility] Care Team Providers Care Career Orientation Teacher Name Role Phone [facility] Unavailable Unavailable Medications Combined list of outpatient medications from Department of Defense and Veterans Affairs facilities.Medications provided include 1) outpatient medications from the last 15 months, and 2) patient-reported medications. Medication Details Route Status Patient Instructions Prescription Expires Prescription Number Last Dispense Date Ordering Provider Order Date Order Qty Source Advair Diskus 250-50 mcg inhaler (60EA) See Rx Instruct ions, # 180 EA, 3 total refill(s ), Hard Stop Complet ed 08/31/2023 2 2022 180.0 Ambulat ory Pharmac y ALBUTEROL 90 MCG INH HFAA [8.5 GM] ALBUTERO L 90 MCG INH HFAA [8.5 GM] Start Date: 11/05/20 Status: Ordered Repeat number: 1 Ordered 2020 No Facilit y Access albuterol 90 mcg inhaler [8.5g] = 2 puff(s), Inhale, every 4 hr, # 26 g, 3 total refill(s ), Hard Stop Inhala tion (breat he in) Complet ed 08/01/2024 3 2023 25.5 Ambulat ory Pharmac y albuterol 90 mcg inhaler [8.5g] See Rx Instruct ions, # 25.5 g, 3 total refill(s ), Hard Stop Complet ed 08/31/2023 2 2022 25.5 Ambulat ory Pharmac y albuterol 90 mcg inhaler [8.5g] = 2 inh(s), Inhale, every 4 hr, # 25.5 g, 3 total refill(s ), Hard Stop Inhala tion (breat he in) Ordered 12/04/2025 5 2024 25.5 Ambulat ory Pharmac y atorvastati n (U/D) 80 MG ORAL TAB Take with food/mil k.Take or use exactly as directed .Obtain advice for OTCs.Do not take if .Avoid grapefru it and grapefru it juice. 08/01/2024 [id number] 3 2023 90 Gen [facility] atorvastati n 80 mg oral tablet atorvast atin 80 mg oral tablet Start Date: 11/05/20 Status: Ordered Repeat number: 1 Ordered 2020 No Facilit y Access atorvastati n 80 mg tablet 80 mg, Oral, Daily, # 90 EA, 3 total refill(s ), Hard Stop Oral (given by mouth) Complet ed 09/23/2022 2 2021 90.0 Ambulat ory Pharmac y atorvastati n 80 mg tablet 80 mg, Oral, Daily, # 90 EA, 3 total refill(s ), Hard Stop Oral (given by mouth) Complet ed 08/01/2024 4 2023 90.0 Ambulat ory Pharmac y atorvastati n 80 mg tablet See Rx Instruct ions, # 90 EA, 3 total refill(s ), Hard Stop Complet ed 08/31/2023 3 2022 90.0 Ambulat ory Pharmac y atorvastati n 80 mg tablet = 1 tab(s), Oral, Daily, # 90 EA, 3 total refill(s ), Hard Stop Oral (given by mouth) Ordered 07/03/2025 4 2023 90.0 Ambulat ory Pharmac y atorvastati n 80 mg tablet = 1 tab(s), Oral, Daily, # 90 EA, 3 total refill(s ), Hard Stop Oral (given by mouth) Ordered 12/04/2025 5 2024 90.0 Ambulat ory Pharmac y azithromyci n 250 mg oral tablet 0 total refill(s ) Ordered 2020 No Facilit y Access Bydureon 2 mg injection [4 EA] See Rx Instruct ions, SubCutan eous, every week, # 12 EA, 3 total refill(s ), Hard Stop SubCut aneous (under the skin) Complet ed 09/23/20222021 12.0 Ambulat ory Pharmac y Bydureon BCise 2 mg/0.85 mL injection-p en See Rx Instruct ions, # 10 mL, 3 total refill(s ), Hard Stop Complet ed 09/23/2022 2 2021 10.2 Ambulat ory Pharmac y carvedilol (U/D) 3.125 MG ORAL TAB May cause drowsine ss.Be careful if taking OTCs.Agustin e with food/mil k.Take or use exactly as directed . 08/01/2024 [id number] 3 2023 180 [place], [place] carvedilol 3.125 mg oral tablet carvedil ol 3.125 mg oral tablet Start Date: 11/05/20 Status: Ordered Repeat number: 1 Ordered 2020 No Facilit y Access carvedilol 3.125 mg tablet 3.125 mg, Oral, BID, # 180 EA, 3 total refill(s ), Hard Stop Oral (given by mouth) Complet ed 09/23/2022 2 2021 180.0 Ambulat ory Pharmac y carvedilol 3.125 mg tablet 3.125 mg, Oral, BID, # 180 EA, 3 total refill(s ), Hard Stop Oral (given by mouth) Complet ed 08/01/2024 4 2023 180.0 Ambulat ory Pharmac y carvedilol 3.125 mg tablet See Rx Instruct ions, # 180 EA, 3 total refill(s ), Hard Stop Complet ed 08/31/2023 3 2022 180.0 Ambulat ory Pharmac y carvedilol 3.125 mg tablet 3.125 mg, Oral, BID, # 180 EA, 3 total refill(s ), Hard Stop Oral (given by mouth) Ordered 07/03/2025 4 2023 180.0 Ambulat ory Pharmac y carvedilol 3.125 mg tablet = 1 tab(s), Oral, BID, # 180 EA, 3 total refill(s ), Hard Stop Oral (given by mouth) Ordered 12/04/2025 5 2024 180.0 Ambulat ory Pharmac y cephalexin 500 mg oral capsule 0 total refill(s ) Ordered 2020 No Facilit y Access cetirizine 10 mg oral tablet cetirizi ne 10 mg oral tablet Start Date: 11/05/20 Status: Ordered Repeat number: 1 Ordered 2020 No Facilit y Access cyanocobala min 1000 mcg oral tablet cyanocob alamin 1000 mcg oral tablet Start Date: 11/05/20 Status: Ordered Repeat number: 1 Ordered 2020 No Facilit y Access cyanocobala min 1000 mcg tablet 1000 mcg, Oral, Daily, # 90 EA, 3 total refill(s ), Hard Stop Oral (given by mouth) Ordered 07/03/2025 4 2023 90.0 Ambulat ory Pharmac y cyanocobala min 1000 mcg tablet = 1 tab(s), Oral, Daily, # 90 EA, 3 total refill(s ), Hard Stop Oral (given by mouth) Ordered 12/04/2025 5 2024 90.0 Ambulat ory Pharmac y cyclobenzap rine 5 mg oral tablet cycloben zaprine 5 mg oral tablet Start Date: 12/16/19 Status: Ordered Repeat number: 1 Ordered 2020 No Facilit y Access DONEPEZIL HCL (DONEPEZIL HCL), 5 MG, TABLET, ORAL, [employer] [facility], 30 ea. BOTTLE Active [id number] 4 2023 90 Pharmac y Data Transac tion Service Facilit y dulaglutide 1.5 mg/0.5 mL pen [4EA=2mL] See Instruct ions, # 6 mL, 3 total refill(s ), Hard Stop Notes: refriger ate Ordered 12/04/2025 5 2024 6.0 Ambulat ory Pharmac y Dulaglutide 3 mg/mL, Injection, 0.5mL Autoinjecto r refriger ateCheck with your doctor before becoming .Store in original package. 08/01/2024 [id number] 3 [address] [facility] [place] exenatide 2 mg/0.85 mL subcutaneou s suspension, extended release exenatid e 2 mg/0.85 mL subcutan eous suspensi on, extended release Start Date: 11/05/20 Status: Ordered Repeat number: 1 Ordered 2020 No Facilit y Access fluticasone 50 mcg/inh nasal spray fluticas one 50 mcg/inh nasal spray Start Date: 11/05/20 Status: Ordered Repeat number: 1 Ordered 2020 No Facilit y Access fluticasone 50 mcg/inh nasal spray [16g] See Instruct ions, Nostril- Both, # 48 g, 3 total refill(s ), Hard Stop Nostri l-Both (into the nose) Complet ed 08/01/2024 3 2023 48.0 Ambulat ory Pharmac y fluticasone 50 mcg/inh nasal spray [16g] See Rx Instruct ions, # 48 g, 3 total refill(s ), Hard Stop Complet ed 08/31/2023 2 2022 48.0 Ambulat ory Pharmac y fluticasone 50 mcg/inh nasal spray [16g] See Instruct ions, # 48 g, 3 total refill(s ), Hard Stop Ordered 12/04/2025 5 2024 48.0 Ambulat ory Pharmac y fluticasone -salmeterol 250 mcg-50 mcg dry powder inhaler fluticas one-salm eterol 250 mcg-50 mcg dry powder inhaler Start Date: 11/05/20 Status: Ordered Repeat number: 1 Ordered 2020 No Facilit y Access fluticasone -salmeterol 250-50 mcg inhaler (60EA) = 1 puff(s), Inhale, every 12 hr, # 180 EA, 3 total refill(s ), Hard Stop Inhala tion (breat he in) Complet ed 08/01/2024 3 2023 180.0 Ambulat ory Pharmac y fluticasone -salmeterol 250-50 mcg inhaler (60EA) = 1 inh(s), Inhale, every 12 hr, # 180 EA, 3 total refill(s ), Hard Stop Inhala tion (breat he in) Ordered 12/04/2025 5 2024 180.0 Ambulat ory Pharmac y Freestyle 28g lancets [100EA] See Rx Instruct ions, # 300 EA, 3 total refill(s ), Hard Stop Complet ed 09/24/2022 1 2021 300.0 Ambulat ory Pharmac y Freestyle 28g lancets [100EA] See Instruct ions, # 300 EA, 3 total refill(s ), Hard Stop Complet ed 08/01/2024 3 2023 300.0 Ambulat ory Pharmac y Freestyle 28g lancets [100EA] See Rx Instruct ions, # 300 EA, 3 total refill(s ), Hard Stop Complet ed 08/31/2023 2 2022 300.0 Ambulat ory Pharmac y Freestyle 28g lancets [100EA] See Instruct ions, # 300 EA, 3 total refill(s ), Hard Stop Ordered 12/04/2025 5 2024 300.0 Ambulat ory Pharmac y freestyle lite (glucose) test strip [50EA] See Instruct ions, # 300 EA, 3 total refill(s ), Hard Stop Complet ed 08/01/2024 4 2023 300.0 Ambulat ory Pharmac y freestyle lite (glucose) test strip [50EA] See Instruct ions, # 300 EA, 3 total refill(s ), Hard Stop Ordered 07/03/2025 4 2023 300.0 Ambulat ory Pharmac y freestyle lite (glucose) test strip [50] See Rx Instruct ions, # 300 EA, 3 total refill(s ), Hard Stop Complet ed 09/23/2022 2 2021 300.0 Ambulat ory Pharmac y freestyle lite (glucose) test strip [50] See Rx Instruct ions, # 300 EA, 3 total refill(s ), Hard Stop Complet ed 08/31/2023 3 2022 300.0 Ambulat ory Pharmac y glucose test strip (freestyle lite) See Instruct ions, # 300 EA, 3 total refill(s ), Hard Stop Ordered 12/04/2025 5 2024 300.0 Ambulat ory Pharmac y lancet freestyle 28g [100EA] See Rx Instruct ions, # 300 EA, 3 total refill(s ), Hard Stop Complet ed 09/23/20222021 300.0 Ambulat ory Pharmac y Loratadine (Alavert ODT) Tablet 10 mg Oral May cause drowsine ss.Obtai n advice for OTCs. 08/01/2024 [id number] 3 2023 90 [place] loratadine 10 mg tablet 10 mg, Oral, Daily, # 90 EA, 3 total refill(s ), Hard Stop Oral (given by mouth) Complet ed 09/23/2022 2 2021 90.0 Ambulat ory Pharmac y loratadine 10 mg tablet 10 mg, Oral, Daily, # 90 EA, 3 total refill(s ), Hard Stop Oral (given by mouth) Complet ed 08/01/2024 4 2023 90.0 Ambulat ory Pharmac y loratadine 10 mg tablet See Rx Instruct ions, # 90 EA, 3 total refill(s ), Hard Stop Complet ed 08/31/2023 3 2022 90.0 Ambulat ory Pharmac y loratadine 10 mg tablet 10 mg, Oral, Daily, # 90 EA, 3 total refill(s ), Hard Stop Oral (given by mouth) Ordered 07/03/2025 4 2023 90.0 Ambulat ory Pharmac y loratadine 10 mg tablet = 1 tab(s), Oral, Daily, # 90 EA, 3 total refill(s ), Hard Stop Oral (given by mouth) Ordered 12/04/2025 5 2024 90.0 Ambulat ory Pharmac y metFORMIN 500 mg tablet 500 mg, Oral, BID, # 180 EA, 3 total refill(s ), Hard Stop Oral (given by mouth) Complet ed 09/23/2022 2 2021 180.0 Ambulat ory Pharmac y Metformin Hcl, 500mg, Tab.sr 24h, Oral Do not drink alcohol. Take with food/mil k.Obtain advice for OTCs.Kianna mccartney.Ch mono with your doctor before becoming . 08/01/2024 [id number] 3 2023 180 [address] [employer] [place] metFORMIN XR 500 mg/24 hour tablet See Instruct ions, Oral, # 180 EA, 3 total refill(s ), Hard Stop Oral (given by mouth) Complet ed 08/01/2024 4 2023 180.0 Ambulat ory Pharmac y metFORMIN XR 500 mg/24 hour tablet See Rx Instruct ions, # 180 EA, 3 total refill(s ), Hard Stop Complet ed 08/31/2023 3 2022 180.0 Ambulat ory Pharmac y metFORMIN XR 500 mg/24 hour tablet 1000 mg, Oral, Daily, # 180 EA, 3 total refill(s ), Hard Stop Oral (given by mouth) Ordered 07/03/2025 4 2023 180.0 Ambulat ory Pharmac y metFORMIN XR 500 mg/24 hour tablet See Instruct ions, Oral, # 270 EA, 3 total refill(s ), Hard Stop Oral (given by mouth) Ordered 12/04/2025 5 2024 270.0 Ambulat ory Pharmac y SPIRONOLACT ONE 50 MG ORAL TAB Take or use exactly as directed .May cause drowsine ss/dizzi ness. 08/01/2024 [id number] 3 2023 90 Gen [employer] [place] spironolact one 50 mg oral tablet spironol actone 50 mg oral tablet Start Date: 11/05/20 Status: Ordered Repeat number: 1 Ordered 2020 No Facilit y Access spironolact one 50 mg tablet 50 mg, Oral, Daily, # 90 EA, 3 total refill(s ), Hard Stop Oral (given by mouth) Complet ed 09/23/2022 2 2021 90.0 Ambulat ory Pharmac y spironolact one 50 mg tablet 50 mg, Oral, Daily, # 90 EA, 3 total refill(s ), Hard Stop Oral (given by mouth) Complet ed 08/01/2024 4 2023 90.0 Ambulat ory Pharmac y spironolact one 50 mg tablet See Rx Instruct ions, # 90 EA, 3 total refill(s ), Hard Stop Complet ed 08/31/2023 3 2022 90.0 Ambulat ory Pharmac y spironolact one 50 mg tablet 50 mg, Oral, Daily, # 90 EA, 3 total refill(s ), Hard Stop Oral (given by mouth) Ordered 07/03/2025 4 2023 90.0 Ambulat ory Pharmac y spironolact one 50 mg tablet = 1 tab(s), Oral, Daily, # 90 EA, 3 total refill(s ), Hard Stop Oral (given by mouth) Ordered 12/04/2025 5 2024 90.0 Ambulat ory Pharmac y Trulicity Pen 1.5 mg/0.5 mL [4EA=2mL] See Instruct ions, # 6 mL, 3 total refill(s ), Hard Stop Complet ed 08/01/2024 4 2023 6.0 Ambulat ory Pharmac y Trulicity Pen 1.5 mg/0.5 mL [4EA=2mL] See Rx Instruct ions, # 6 mL, 3 total refill(s ), Hard Stop Complet ed 08/31/2023 3 2022 6.0 Ambulat ory Pharmac y Trulicity Pen 1.5 mg/0.5 mL [4EA=2mL] See Instruct ions, # 6 mL, 3 total refill(s ), Hard Stop Notes: refriger ate Ordered 07/03/2025 4 2023 6.0 Ambulat ory Pharmac y Allergies, Adverse Reactions, Alerts Combined list of allergies from Department of Defense and [facility] facilities. It does not include entries that were removed or entered in error. Substance Category Reaction Severity Reaction type Status Date Reported Comments Source aspirin-oxy codone Propensity to adverse reactions to substance Unknown Active 8 Unknown Organizatio n PENICILLIN G (PENICILLIN G PROCAINE) Drug allergy (disorder) Unknown active 8 Gen [employer] [place], [place] Penicillin G Procaine Propensity to adverse reactions to substance Unknown Active 8 Unknown Organizatio n PERCODAN (OXYCODONE HCL/ASPIRIN ) Drug allergy (disorder) Unknown active 8 Gen [employer] [place], [place] Immunizations Combined list of available immunizations from the Department of Defense and Veterans [facility] facilities. Immunization Series Date Given Administered By Site Reaction Lot Number CVX Code Drug Flavor Tank Tender Status Comments Source zoster recombinant 2018 CHOCO, () Not Given zoster recombina nt [facility] zoster recombinant 2018 [facility]O, () Not Given zoster recombina nt [facility] Procedures Combined list of: 1) Procedures from Department of Veterans Affairs facilities going back up to thelast 18 months, not all [place] non-surgical procedures are included; 2) All procedures from the Department of [facility] facilities. Procedure Procedure Type Code Date Perfomer Comments Sourc e No data available for this section Ambulato ry Pharmacy PHYS/OTH QUALIFIED HEALTH EP TECH QUALIFIED,EDUCATION ,TRAIN,LICENSURE/RE GULATION (WHEN APPLICABLE) EDUC SER RENDERED TO PATS IN A GRP SETTING (EG,,OBESIT Y,OR DIABETIC INSTRUCT) 02/28/2003 [facility] Social History Combined list of available smoking, tobacco, and other social history from Department of Defense and Veterans Affairs facilities. Social History Type Response Date Comment Sourc e Sex Representation Female (finding) 01/14/2021 Unknown Organization Sexual Orientation Ambula tory Pharmacy Gender identity Ambulator y Pharmacy This section is an empty social history section. [facility] Assessment and Plan Combined list of future care activities from Department of Defense and Veterans Affairs facilities (e.g., assessment and plan notes, appointments, orders, and referrals). Additional future care activities may be listed in the Plan of Care section. Result Assessment and Plan Date Source Assessment and Plan No data available for this section 06/23/2025 Ambulatory Pharmacy Functional Status Combined list of recent functional and cognitive assessments recorded at Department of Defense and Veterans Affairs ([place] Functional Hana Measurement (FIM) Scale: 1 = Total Assistance (Subject = 0% +), 2 = Maximal Assistance (Subject = 25% +), 3 = Moderate Assistance (Subject = 50% +), 4 = Minimal Assistance (Subject = 75% +), 5 = Supervision, 6 = Modified Hana (Device), 7 = Complete Hana (Timely, Safely). Assessment Date/Time Source Assessment Type Assessment Skill Assessment Score Assessment Details No data available for this section
--- OUTSIDE RECORDS SUMMARY | 2025-06-23 16:45 | XMS_ITS | Encounter Summary ---
Author Organization [facility] Address [address] [place] [address] Care Team Providers Care Hair Clipper Power Name Role Phone Nani Alejandro MD Primary Care Provider [phone]- [phone] Encounter Details Date Type Department Care Team (Latest Contact Info) Description 01/22/2003 Outpatient Historical [facility]- [address] [address] Gómez Gloria MD [address] [address] DIABETES UNCOMPL ADULT-TYPE II ([facility]) (Primary Dx); Gynecologic examination; ROSACEA; HYPERTENSION NOS Social History Tobacco Use Types Packs/Day Years Used Date Smoking Tobacco: Never Assessed Comments Unknown Sex and Gender Information Value Date Recorded Sex Assigned at Not on file 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
--- OUTSIDE RECORDS SUMMARY | 2025-06-23 16:45 | XMS_ITS | Encounter Summary ---
Author Organization [facility] Address [address] [place] [address] Care Team Providers Care Logging Engineer Name Role Phone Nani Alejandro MD Primary Care Provider [phone]- [phone] Encounter Details Date Type Department Care Team (Latest Contact Info) Description 02/22/2002 Outpatient Historical [address] [address] Gómez Gloria MD [address] [address] DIABETES UNCOMPL ADULT-TYPE II (CMS/HCC) (Primary Dx) Social History Tobacco Use Types Packs/Day Years Used Date Smoking Tobacco: Never Assessed Comments Unknown Sex and Gender Information Value Date Recorded Sex Assigned at Not on file 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
--- OUTSIDE RECORDS SUMMARY | 2025-06-23 16:45 | XMS_ITS | Encounter Summary ---
Author Organization [facility] Address [address] [place] [address] Care Team Providers Care Integration Project Manager Name Role Phone Nani Alejandro MD Primary Care Provider +1- [phone] Encounter Details Date Type Department Care Team (Latest Contact Info) Description 08/14/2002 Outpatient Historical [facility]- [address] [address] Gómez Gloria MD [address] [address] DIABETES UNCOMPL ADULT-TYPE II (CMS/HCC) (Primary Dx); ENDOCRINE DISORDER NOS; Pure hypercholesterolem Social History Tobacco Use Types Packs/Day Years Used Date Smoking Tobacco: Never Assessed Comments Unknown Sex and Gender Information Value Date Recorded Sex Assigned at Not on file Legal Sex Female 4:35 AM RN SURGICAL PCU Gender Identity Not on file Sexual Orientation Not on file documented as of this encounter Plan of Treatment Not on file documented as of this encounter Visit Diagnoses Diagnosis Type II or unspecified type diabetes mellitus without mention of complication, not stated as uncontrolled- Primary Unspecified endocrine disorder Pure hypercholesterolem Pure hypercholesterolemia documented in this encounter Care Teams Integration Project Manager Relationship Specialty Start Date End Date Nani Alejandro MD PCP - General Family Practice 03/06/15 11/17/15 documented as of this encounter
--- OUTSIDE RECORDS SUMMARY | 2025-06-23 16:45 | XMS_ITS | Clinical Summary ---
Author Organization [employer] Address [address] [facility] Attn: Epic [place] [address] Care Team Providers Care Eyeglass Cutter Name Role Phone Unavailable Primary Care Provider Unavailabl e Allergies Active Allergy Reactions Criticality Noted Date Comments Aspirin Other (See Comments) 03/12/2015 Bleeding. Oxycodone [id number] Nausea and Vomiting Low 03/12/2015 Penicillins Rash [...] 1 Tablet (25 mcg) by mouth daily early intervention school psychologist. 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 10/22/2015 Overview (03/20/2021): [...] on file Legal Sex Female 12:46 AM ORACLE FINANCIALS CONSULTANT Gender Identity Not on file Sexual Orientation [...] INE RATIO, RANDOM UR 12/29/2012 12:00 AM ORACLE FINANCIALS CONSULTANT from Last 3 Months or Most Recently [...] created through External Result Entry Sia Mcneil [employer]BER CHEMISTRY ORDERABLES Final Result EXTERNAL LAB * HEMOGLOBIN A1C (08/15/2014 12:00 AM CDT) us Sgf Scanning CHEMISTRY ORDERABLES Final Resul t * XR DEXA BONE DENSITY 2 SITES (02/02/2014 12:00 AM CDT) Anatomical Region Laterality Modality Other us Sgf Scanning DIAGNOSTIC IMAGING ORDERABLES Fi nal Result * MICROALBUMIN/CREATININE RATIO, RANDOM UR (12/29/2012 12:00 AM ORACLE FINANCIALS CONSULTANT) [facility] [place] Scanning URINE ORDERABLES Final Result from Last 3 Months or Most Recently Relevant to Health Maintenance Insurance MEDICARE PART A AND B Goodie Goodie App
--- OUTSIDE RECORDS SUMMARY | 2025-06-23 16:45 | XMS_ITS | Encounter Summary ---
Author Organization [facility] Address [address] [place] [address] Care Team Providers Care Marketing Communications Manager Name Role Phone Nani Alejandro MD Primary Care Provider +1- [phone] Encounter Details Date Type Department Care Team (Late st Contact Info) Description 05/16/[address] [address] [facility] 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
--- OUTSIDE RECORDS SUMMARY | 2025-06-23 16:45 | XMS_ITS | Encounter Summary ---
Author Organization [facility] Address [address] [place] [address] Care Team Providers Care Cutter Grind Tool Technician Name Role Phone Nani Alejandro MD Primary Care Provider +1- [phone] Encounter Details Date Type Department Care Team (Latest Contact Info) Description 08/15/2003 Outpatient Historical [facility]- [address] [address] Gómez Gloria MD [address] [address] DIABETES UNCOMPL ADULT-TYPE II (CMS/HCC) (Primary Dx); Pure hypercholesterolem; HYPERTENSION NOS Social History Tobacco Use Types Packs/Day Years Used Date Smoking Tobacco: Never Assessed Comments Unknown Sex and Gender Information Value Date Recorded Sex Assigned at Not on file 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
--- OUTSIDE RECORDS SUMMARY | 2025-06-23 16:45 | XMS_ITS | Encounter Summary ---
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 Social History Tobacco Use Types Packs/Day Years Used Date Smoking Tobacco: Never Assessed Comments Unknown Sex and Gender Information Value Date Recorded Sex Assigned at Not on file Legal Sex Female 4:35 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
--- OUTSIDE RECORDS SUMMARY | 2025-06-23 16:45 | XMS_ITS | Clinical Summary ---
Author Organization [facility] ([facility] Address [address] [place] [address] Care Team Providers Care Parts Cataloger Name Role Phone Unavailable Primary Care Provider Unavailabl e Allergies Active Allergy Reactions Criticality Noted Date Comments Aspirin Other (See Comments) 03/12/2015 Bleeding. 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 30 Tablet 1 5 Active Active Problems Problem Noted Date Diagnosed Date Atherosclerosis of [place] co ronary artery of [place] heart without angina pectoris 10/22/2015 Overview (10/22/2015): [...] on file Legal Sex Female 4:35 AM LITHOSTRIPPER Gender Identity Not on file Sexual Orientation [...] Blood specimen (specimen) 04/29/2015 us Sia Mcneil LABOURERS CHEMISTRY ORDERABLES Final Result EXTERNAL LAB * [...] Maintenance Insurance MEDICARE PART A AND B [facility] [employer]
--- OUTSIDE RECORDS SUMMARY | 2025-06-23 16:45 | XMS_ITS | Encounter Summary ---
Author Organization [facility] Address [address] [place] [address] Care Team Providers Care Machine Shop Supervisor Name Role Phone Nani Alejandro MD Primary Care Provider +1- [phone] Encounter Details Date Type Department Care Team (Latest Contact Info) Description 02/08/[address] 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
--- OUTSIDE RECORDS SUMMARY | 2025-06-23 16:45 | XMS_ITS | Encounter Summary ---
Author Organization [facility] Address [address] [place] [address] Care Team Providers Care Dining Car Server Name Role Phone Nani Alejandro MD Primary Care Provider +1- [phone] Encounter Details Date Type Department Care Team (Late st Contact Info) Description 12/25/2002 Outpatient Historical [address] [address] [facility] 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
--- OUTSIDE RECORDS SUMMARY | 2025-06-23 16:45 | XMS_ITS | Clinical Summary ---
Author Organization [facility] Address [address] [address] Phone Care Team Providers Care Stakes Player Name Role Phone Darian Jameson MD Primary [...] same time. Active cyanocobalamin/f olic acid (vitamin U35-iqfye acid) 1,000-400 mcg lozenge 1 tablet 1 [...] a day. 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); Dermatophytosis of nail from Last 3 Months Immunizations Immunization Administration Dates Next Due Influenza TIV (IM) 09/09/2017 Social History Tobacco Use Types Packs/Day Years Used Date Smoking Tobacco: Never Smokeless Tobacco: Never Tobacco Cessation:Counseling Given: Not Answered PHQ-2 Answer Date Recorded Patient Health Questionnaire-2 Score 0 05/08/2025 [facility] - Mental Health Answer Date Recorde [...] Care Team (Late st Contact Info) Description 07/31/2025 9:45 AM CDT Procedure Visit [facility] [address] [place] [address] Farrah Hall, [place] [address] Health Maintenance Due Date Last Done Comments [...] complete this topic Insurance MEDICARE Care Teams Stakes Player Relationship Specialty Start Date End Date Darian Jameson MD [address] [place] [address] PCP - General Family Medicine 08/23/20
--- OUTSIDE RECORDS SUMMARY | 2025-06-23 16:45 | XMS_ITS | Encounter Summary ---
Author Organization [facility] Address [address] [place] [address] Care Team Providers Care Clay Grinder Name Role Phone Nani Alejandro MD Primary Care Provider +1- [phone] Encounter Details Date Type Department Care Team (Latest Contact Info) Description 05/16/2003 Outpatient Historical [address] [address] Gómez Gloria MD [address] [address] CONJUNCTIVITIS NOS (Primary Dx); DIABETES UNCOMPL ADULT-TYPE II ([facility]) Social History Tobacco Use Types Packs/Day Years Used Date Smoking Tobacco: Never Assessed Comments Unknown Sex and Gender Information Value Date Recorded Sex Assigned at Not on file Legal Sex Female 4:35 AM LINGO CLEANER Gender Identity Not on file Sexual Orientation Not on file documented as of this encounter Plan of Treatment Not on file documented as of this encounter Visit Diagnoses Diagnosis Conjunctivitis unspecified- Primary Conjunctivitis, unspecified Type II or unspecified type diabetes mellitus without mention of complication, not stated as uncontrolled documented in this encounter Care Teams Clay Grinder Relationship Specialty Start Date End Date Nani Alejandro MD PCP - General Family Practice 03/06/15 11/17/15 documented as of this encounter
--- OUTSIDE RECORDS SUMMARY | 2025-06-23 16:45 | XMS_ITS | Encounter Summary ---
Author Organization [facility] Address [address] [place] [address] Care Team Providers Care Construction Field Engineer Name Role Phone Nani Alejandro MD Primary Care Provider +1- [phone] Encounter Details Date Type Department Care Team (Latest Contact Info) Description 09/04/2003 Outpatient Historical [facility] Medicine- [address] [address] Gómez Gloria MD [address] [address] Vaccine for influenza (Primary Dx) Social History Tobacco Use Types Packs/Day Years Used Date Smoking Tobacco: Never Assessed Comments Unknown Sex and Gender Information Value Date Recorded Sex Assigned at Not on file 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
--- OUTSIDE RECORDS SUMMARY | 2025-06-23 16:45 | XMS_ITS | Encounter Summary ---
Author Organization [facility] Address [address] [place] [address] Care Team Providers Care Brush Clearer Surveying Name Role Phone Nani Alejandro MD Primary Care Provider +1- [phone] Encounter Details Date Type Department Care Team (Latest Contact Info) Description 10/26/2002 Outpatient Historical [facility]- [address] [address] Gómez Gloria MD [address] [address] DIABETES UNCOMPL ADULT-TYPE II (CMS/HCC) (Primary Dx); Pure hypercholesterolem Social History Tobacco Use Types Packs/Day Years Used Date Smoking Tobacco: Never Assessed Comments Unknown Sex and Gender Information Value Date Recorded Sex Assigned at Not on file Legal Sex Female 4:35 AM HOOP 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
--- OUTSIDE RECORDS SUMMARY | 2025-06-23 16:45 | XMS_ITS | Encounter Summary ---
Author Organization [facility] Address [address] [place] [address] Care Team Providers Care Load Out Person Name Role Phone Nani Alejandro MD Primary Care Provider +1- [phone] Encounter Details Date Type Department Care Team (Latest Contact Info) Description 10/07/[address] [facility] Medicine- [address] [address] Gómez Gloria MD [address] [address] HYPERTENSION NOS (Primary Dx); Pure hypercholesterolem Social History Tobacco Use Types Packs/Day Years Used Date Smoking Tobacco: Never Assessed Comments Unknown Sex and Gender Information Value Date Recorded Sex Assigned at Not on file Legal Sex Female 4:35 AM HEAD IRRIGATOR Gender Identity Not on file Sexual Orientation Not on file documented as of this encounter Plan of Treatment Not on file documented as of this encounter Visit Diagnoses Diagnosis Unspecified essential hypertension- Primary Pure hypercholesterolem Pure hypercholesterolemia documented in this encounter Care Teams Load Out Person Relationship Specialty Start Date End Date Nani Alejandro MD PCP - General Family Practice 03/06/15 11/17/15 documented as of this encounter
--- OUTSIDE RECORDS SUMMARY | 2025-06-23 16:45 | XMS_ITS | Encounter Summary ---
Author Organization [facility] Address [address] [place] [address] Care Team Providers Care Speech Assistant Name Role Phone Nani Alejandro MD Primary Care Provider +1- [phone] Encounter Details Date Type Department Care Team (Latest Contact Info) Description 03/27/[address] 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
--- OUTSIDE RECORDS SUMMARY | 2025-06-23 16:45 | XMS_ITS | Encounter Summary ---
Author Organization [facility] Address [address] [place] [address] Care Team Providers Care Drier Take Off Tender Name Role Phone Nani Alejandro MD Primary Care Provider +1- [phone] Encounter Details Date Type Department Care Team (Latest Contact Info) Description 01/02/[address] [address] Gómez Gloria MD [address] [id number] ROSACEA (Primary Dx); CHEST PAIN NOS; Gynecologic examination; ENDOCRINE DISORDER NOS Social History Tobacco Use Types Packs/Day Years Used Date Smoking Tobacco: Never Assessed Comments Unknown Sex and Gender Information Value Date Recorded Sex Assigned at Not on file Legal Sex Female 4:35 AM POULTRY VETERINARIAN Gender Identity Not on file Sexual Orientation Not on file documented as of this encounter Plan of Treatment Not on file documented as of this encounter Visit Diagnoses Diagnosis Rosacea- Primary Chest pain, unspecified Gynecologic examination Gynecological examination Unspecified endocrine disorder documented in this encounter Care Teams Drier Take Off Tender Relationship Specialty Start Date End Date Nani Alejandro MD PCP - General Family Practice 03/06/15 11/17/15 documented as of this encounter
--- OUTSIDE RECORDS SUMMARY | 2025-06-23 16:45 | XMS_ITS | Encounter Summary ---
Author Organization [facility] Address [address] [place] [address] Care Team Providers Care Blind Stitch Machine Operator Name Role Phone Nani Alejandro MD Primary Care Provider +1- [phone] Encounter Details Date Type Department Care Team (Latest Contact Info) Description 09/30/2001 Outpatient Historical [facility]- [address] [address] Gómez Gloria MD [address] [address] VACCINE FOR INFLUENZA (Primary Dx); VACCINE FOR SINGLE BACT DIS OTHER Social History Tobacco Use Types Packs/Day Years Used Date Smoking Tobacco: Never Assessed Comments Unknown Sex and Gender Information Value Date Recorded Sex Assigned at Not on file Legal Sex Female 4:35 AM MEAT PUMPER Gender Identity Not on file Sexual Orientation Not on file documented as of this encounter Plan of Treatment Not on file documented as of this encounter Visit Diagnoses Diagnosis Need vaccination-viral disease- Primary Need for prophylactic vaccination and inoculation against other viral diseases Need for other specified prophylactic vaccination against single bacterial disease documented in this encounter Care Teams Blind Stitch Machine Operator Relationship Specialty Start Date End Date Nani Alejandro MD PCP - General Family Practice 03/06/15 11/17/15 documented as of this encounter
--- OUTSIDE RECORDS SUMMARY | 2025-06-23 16:45 | XMS_ITS | Encounter Summary ---
Author Organization [facility] Address [address] [place] [address] Care Team Providers Care Camera Systems Engineer Name Role Phone Nani Alejandro MD Primary Care Provider +1- [phone] Encounter Details Date Type Department Care Team (Late st Contact Info) Description 08/15/[address] [address] [facility] 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
--- OUTSIDE RECORDS SUMMARY | 2025-06-23 16:45 | XMS_ITS | Encounter Summary ---
Author Organization [facility] Address [address] [place] [address] Care Team Providers Care Project Designer Name Role Phone Nani Alejandro MD Primary Care Provider +1- [phone] Encounter Details Date Type Department Care Team (Late st Contact Info) Description 02/08/2003 Outpatient Historical [facility] [address] [facility] [address] [place] [address] Social History Tobacco Use Types Packs/Day Years Used Date Smoking Tobacco: Never Assessed Comments Unknown Sex and Gender Information Value Date Recorded Sex Assigned at Not on file Legal Sex Female 4:35 AM ADULT SERVICES LIBRARIAN Gender Identity Not on file Sexual Orientation Not on file documented as of this encounter Plan of Treatment Not on file documented as of this encounter Visit Diagnoses Not on filedocumented in this encounter Care Teams Project Designer Relationship Specialty Start Date End Date Nani Alejandro MD PCP - General Family Practice 03/06/15 11/17/15 documented as of this encounter
--- OUTSIDE RECORDS SUMMARY | 2025-06-23 16:45 | XMS_ITS | Encounter Summary ---
Author Organization [facility] Address [address] [place] [address] Care Team Providers Care Child Caregiver Private Home Name Role Phone Nani Alejandro MD Primary Care Provider +1- [phone] Encounter Details Date Type Department Care Team (Latest Contact Info) Description 12/25/[address] [address] Gómez Gloria MD [address] [address] NAUSEA ALONE (Primary Dx); ESOPHAGEAL REFLUX; OTHER MALAISE AND FATIGUE Social History Tobacco Use Types Packs/Day Years Used Date Smoking Tobacco: Never Assessed Comments Unknown Sex and Gender Information Value Date Recorded Sex Assigned at Not on file Legal Sex Female 4:35 AM SCARF GLUER Gender Identity Not on file Sexual Orientation Not on file documented as of this encounter Plan of Treatment Not on file documented as of this encounter Visit Diagnoses Diagnosis Nausea alone- Primary Esophageal reflux Other malaise and fatigue documented in this encounter Care Teams Child Caregiver Private Home Relationship Specialty Start Date End Date Nani Alejandro MD PCP - General Family Practice 03/06/15 11/17/15 documented as of this encounter
--- OUTSIDE RECORDS SUMMARY | 2025-06-23 16:45 | XMS_ITS | Encounter Summary ---
Author Organization [facility] Address [address] [place] [address] Care Team Providers Care Hospice Social Worker Name Role Phone Nani Alejandro MD Primary Care Provider +1- [phone] Encounter Details Date Type Department Care Team (Latest Contact Info) Description 02/19/2003 Outpatient Historical [facility] G[facility]mez Gloria MD [address] [facility] [address] [place] [address] UNSP ABNORMAL MAMMOGRAM (Primary Dx) Social History Tobacco Use Types Packs/Day Years Used Date Smoking Tobacco: Never Assessed Comments Unknown Sex and Gender Information Value Date Recorded Sex Assigned at Not on file Legal Sex Female 4:35 AM BUFFET RUNNER Gender Identity Not on file Sexual Orientation Not on file documented as of this encounter Plan of Treatment Not on file documented as of this encounter Visit Diagnoses Diagnosis Abnormal mammogram, unspecified- Primary documented in this encounter Care Teams Hospice Social Worker Relationship Specialty Start Date End Date Nani Alejandro MD PCP - General Family Practice 03/06/15 11/17/15 documented as of this encounter
--- OUTSIDE RECORDS SUMMARY | 2025-06-23 16:45 | XMS_ITS | Encounter Summary ---
Author Organization [facility] Address [address] [place] [address] Care Team Providers Care Tile Setter Supervisor Name Role Phone Nani Alejandro MD Primary Care Provider +1- [phone] Encounter Details Date Type Department Care Team (Latest Contact Info) Description 08/23/2002 Outpatient Historical [address] [address] Gómez Gloria MD [address] [address] VACCINE FOR INFLUENZA (Primary Dx) Social History Tobacco Use Types Packs/Day Years Used Date Smoking Tobacco: Never Assessed Comments Unknown Sex and Gender Information Value Date Recorded Sex Assigned at Not on file Legal Sex Female 4:35 AM 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
--- OUTSIDE RECORDS SUMMARY | 2025-06-23 16:45 | XMS_ITS | Encounter Summary ---
Author Organization [facility] Address [address] [place] [address] Care Team Providers Care Front End Manager Name Role Phone Nani Alejandro MD Primary Care Provider [phone]- [phone] Encounter Details Date Type Department Care Team (Late st Contact Info) Description 01/22/2003 Outpatient Historical [address] [address] [facility], 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
--- OUTSIDE RECORDS SUMMARY | 2025-06-23 16:45 | XMS_ITS | Encounter Summary ---
Author Organization [facility] Address [address] [place] [address] Care Team Providers Care Green Tire Inspector Name Role Phone Nani Alejandro MD Primary Care Provider [phone]- [phone] Encounter Details Date Type Department Care Team (Late st Contact Info) Description 01/22/2003 Outpatient Historical [address] [address] [facility] [address] [place], [address] Social History Tobacco Use Types Packs/Day Years Used Date Smoking Tobacco: Never Assessed Comments Unknown Sex and Gender Information Value Date Recorded Sex Assigned at Not on file Legal Sex Female 4:35 AM MANAGER DOCUMENT CONTROL Gender Identity Not on file Sexual Orientation Not on file documented as of this encounter Plan of Treatment Not on file documented as of this encounter Visit Diagnoses Not on filedocumented in this encounter Care Teams Green Tire Inspector Relationship Specialty Start Date End Date Nani Alejandro MD PCP - General Family Practice 03/06/15 11/17/15 documented as of this encounter
--- OUTSIDE RECORDS SUMMARY | 2025-06-23 16:45 | XMS_ITS | Encounter Summary ---
Author Organization [facility] Address [address] [facility] Attn: Epic [place] [address] Care Team Providers Care Customer Success Advocate Name Role Phone Nani Alejandro MD Primary Care Provider +1- [phone] Encounter Details Date Type Department Care Team (Late st Contact Info) Description 01/02/2002 Outpatient Historical Gómez Gloria MD [address] [facility] [address] [place] [id number] Social History Tobacco Use Types Packs/Day Years Used Date Smoking Tobacco: Never Assessed Comments Unknown Sex and Gender Information Value Date Recorded Sex Assigned at Not on file Legal Sex Female 4:35 AM INTERACTIVE MEDIA PROJECT MANAGER Gender Identity Not on file Sexual Orientation Not on file documented as of this encounter Plan of Treatment Not on file documented as of this encounter Visit Diagnoses Not on filedocumented in this encounter Care Teams Customer Success Advocate Relationship Specialty Start Date End Date Nani Alejandro MD PCP - General Family Practice 03/06/15 11/17/15 documented as of this encounter
--- OUTSIDE RECORDS SUMMARY | 2025-06-23 16:46 | XMS_ITS | Encounter Summary ---
Author Organization [facility] Address [address] [place] [address] Care Team Providers Care Buncher Operator Name Role Phone Nani Alejandro MD Primary Care Provider +1- [phone] Encounter Details Date Type Department Care Team (Late st Contact Info) Description 02/19/2003 Outpatient Historical [facility] [address] [facility] [address] [place] [address] Social History Tobacco Use Types Packs/Day Years Used Date Smoking Tobacco: Never Assessed Comments Unknown Sex and Gender Information Value Date Recorded Sex Assigned at Not on file 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
[2025-06-23 16:47] VITALS: BP 151/89; PULSE 70; RESP 16; O2SAT 96
[2025-06-23 16:50] LABS: Hematocrit 35.9 % (36-47); Hemoglobin 12.20 g/dL (11.27-16.99); Mean Corpuscular HGB Conc 34.0 g/dL (30-55); Mean Corpuscular Hemoglobin 29.8 pg (27-33); Mean Corpuscular Volume 87.6 fl (85-98); Nucleated Red Blood Cells % 0 %; Platelet Count 249 10^3/cmm (157-399); Red Blood Count 4.10 10^6/uL (3.85-5.65); White Blood Count 14.31 10^3/uL (3.29-11.43)
[2025-06-23 17:00] LABS: INR 1.00 (0.8-1.2); Prothrombin Time 14.00 SECONDS (12.1-14.9)
[2025-06-23 17:00] LABS: Glucose Urine UA 2+ (Normal); Nitrate Urine Negative (Negative); Specific Gravity, Urine 1.017 (1.005-1.030)
[2025-06-23 17:02] LABS: Add Urine Microscopic? YES
[2025-06-23 17:09] LABS: Alanine Aminotransferase 25 U/L (0-33); Albumin Level 3.3 g/dL (3.5-5.2); Alkaline Phosphatase 84 U/L (35-105); Anion Gap 15.9 (5-19); Aspartate Amino Transferase 21 U/L (0-32); Blood Urea Nitrogen 37 mg/dL (8-23); Calcium 8.9 mg/dL (8.5-10.5); Carbon Dioxide 23 mmol/L (22-29); Chloride 97 mmol/L (98-107); Globulin 3.2 g/dL (1.3-4.6); Glucose 245 mg/dL (65-115); Osmolality Calculated 289 mOsm/kg (285-295); Potassium 4.9 mmol/L (3.5-5.1); Sodium 131 mmol/L (136-145); Total Protein 6.5 g/dL (6.6-8.7)
[2025-06-23 17:16] LABS: Creatinine Clr Calc Pharmacy 42.4693
[2025-06-23 17:21] VITALS: BP 151/89; PULSE 67; RESP 16; O2SAT 95
== END 2025-06-23 17:31 | disposition home or self-care (01) ==
PROVIDERS: Emergency Provider Emergency Medicine
DX: R31.9 Hematuria, unspecified (principal); Z79.84 Long term (current) use of oral hypoglycemic drugs; Z79.85 Long-term (current) use of injectable non-insulin antidiabetic drugs; J44.9 Chronic obstructive pulmonary disease, unspecified; Z95.0 Presence of cardiac pacemaker; E11.9 Type 2 diabetes mellitus without complications
CPT/HCPCS: 36415; 80053; 81001; 85025; 85610; 87086; 99283